=== PATIENT | female | born 1980 | race Caucasian/White ===

== ENCOUNTER 2019-08-21 15:14 | Emergency (ER) | payer MEDICAID, SELFPAY ==
[2019-08-21 15:23] VITALS: BP 147/75; PULSE 88; RESP 16; TEMP 37.2; O2SAT 100
--- NOTE | 2019-08-21 15:34 | W.ED.GENAD ---
Discharge Plan Discharge Details Chief Complaint: FacialProb Primary Care Provider: None,None ED Provider: Apurva Bowen Home Meds and New Rx's Prescriptions: No Action ibuprofen 800 MG tablet 800 mg PO BID PRN PRNRF: 0 sumatriptan succinate [Imitrex] 50 MG tablet 100 mg PO PRN PRNRF: 0 topiramate 25 MG tablet 50 mg PO DAILY RF: 0 oxycodone 5 MG tablet 10 mg PO Q4H PRN PRNRF: 0 albuterol sulfate 8.5 GM HFA aerosol inhaler 2 puff Inhalation PRN RF: 0 duloxetine [Cymbalta] 60 MG capsule,delayed release(DR/EC) 60 mg PO BID RF: 0 Pain Contract With Pcp RF: 0 tramadol 50 MG tablet 50 mg PO QID PRN PRN (Reason: Pain) Qty: 15 RF: 0 methylprednisolone 4 MG tablets,dose pack 4 mg PO DIRECTED Qty: 1 RF: 0 prednisone 20 MG tablet 40 mg PO DAILY Qty: 10 RF: 0 albuterol sulfate [ProAir HFA] 200 PUFF HFA aerosol inhaler 2 puff Inhalation Q6H PRN PRNQty: 1 RF: 0 (DME) inhalational spacing device [AeroChamber Plus Z Stat Sm Msk] 1 EACH spacer 1 ea Miscellaneous Q6H PRN Qty: 1 RF: 0 prednisone 20 MG tablet 20 mg PO DAILY Qty: 10 RF: 0 cyclobenzaprine 10 MG tablet 10 mg PO TID PRN PRNQty: 20 RF: 0 HPI General Date/Time Provider Initiated Documentation: 08/21/19 15:14. Related Data Home Medications Medication Instructions Recorded Confirmed ibuprofen 800 mg PO BID PRN PRN 06/16/13 08/31/16 oxycodone 10 mg PO Q4H PRN PRN 06/16/13 08/31/16 sumatriptan succinate [Imitrex] 100 mg PO PRN PRN 06/16/13 08/31/16 topiramate 50 mg PO DAILY 06/16/13 08/31/16 Pain Contract With Pcp 04/06/14 06/08/15 albuterol sulfate 2 puff INHALATION PRN 04/06/14 08/31/16 duloxetine [Cymbalta] 60 mg PO BID 04/06/14 08/31/16 methylprednisolone 4 mg PO DIRECTED #1 packet 06/08/15 08/31/16 tramadol 50 mg PO QID PRN PRN #15 tab 06/08/15 08/31/16 albuterol sulfate [ProAir HFA] 2 puff INHALATION Q6H PRN PRN #1 07/22/16 08/31/16 inh inhalational spacing device #1 spacer 07/22/16 08/31/16 [Aerochamber Z-Stat Plus] prednisone 40 mg PO DAILY #10 tablet 07/22/16 08/31/16 cyclobenzaprine 10 mg PO TID PRN PRN #20 tab 08/31/16 prednisone 20 mg PO DAILY #10 tab 08/31/16 Previous Rx's Medication Instructions Recorded methylprednisolone 4 mg PO DIRECTED #1 packet 06/08/15 tramadol 50 mg PO QID PRN PRN #15 tab 06/08/15 albuterol sulfate [ProAir HFA] 2 puff INHALATION Q6H PRN PRN #1 07/22/16 inh inhalational spacing device #1 spacer 07/22/16 [Aerochamber Z-Stat Plus] prednisone 40 mg PO DAILY #10 tablet 07/22/16 cyclobenzaprine 10 mg PO TID PRN PRN #20 tab 08/31/16 prednisone 20 mg PO DAILY #10 tab 08/31/16 Allergies Allergy/AdvReac Type Severity Reaction Status Date / Time gentamicin Allergy Mild Visual Unverified 08/31/16 23:08 Disturbances ibuprofen AdvReac Nausea Unverified 08/31/16 23:08 strawberries Allergy Mild Uncoded 08/31/16 23:08 roboxin AdvReac Intermediate Uncoded 08/31/16 23:08 General Stated Complaint: FacialProb SOURAV: 3 Review of Systems Review of Systems ROS Unobtainable: All systems reviewed & are unremarkable except as noted in HPI and below Constitutional Constitutional: Reports as per HPI, Denies chills and Denies fever(s) Eyes Eyes: Denies blurry vision ENT Ears, Nose, Mouth, and Throat: Denies dizziness, Denies sore throat and Denies throat swelling Cardiovascular Cardiovascular: Denies chest pain and Denies dyspnea Respiratory Respiratory: Denies cough and Denies dyspnea Gastrointestinal Gastrointestinal: Denies abdominal pain, Denies diarrhea and Denies vomiting Genitourinary Genitourinary: Denies hematuria and Denies dysuria Musculoskeletal Musculoskeletal: Denies back pain and Denies numbness Integumentary/Breasts Skin/Breast: Denies lesions and Denies rash Neurologic Neurologic: Denies dizziness, Denies focal weakness and Denies numbness Allergic/Immunologic Allergic/Immunologic: Denies throat swelling [facility] Medical History Anxiety (Chronic) Surgical History No significant past surgical history (Acute) Social History Smoking/Tobacco Use Status: Current every day Tobacco Type: cigarettes Alcohol Intake: current Alcohol Intake frequency: a few times a month Drug use: Rarely Substance use type: does not use Do you feel safe at home: Yes Do you feel safe in your relationship?: Yes Exam Const General: cooperative, healthy appearing and no acute distress HENMT Head: normal to inspection Ears: hearing grossly normal bilaterally, external ears normal and TM's normal bilaterally General nose exam: external nose normal Face images: 1. Left-sided facial edema extending around upper and lower eyelid and left facial cheek. No left periorbital erythema. There is some mid left facial erythema which is patchy. There is no induration, fluctuance. Mouth: oral mucosae normal Teeth image: 1. Above missing tooth there is moderate edema, erythema and a small fluctuant abscess. Eyes General: appearance normal, both eyes and all related structures Neck Neck: normal visual inspection Resp Effort & Inspection: normal respiratory effort and able to speak in complete sentences Cardio Rate: regular rate Skin General skin exam: no rashes or lesions noted Neuro General: alert, awake and oriented x3 Motor: muscle tone normal throughout Extrem General: normal to inspection and full ROM Psych Appearance: grossly normal Affect: normal affect Course Vital Signs Vital signs: Vital Signs Temperature 99.0 F 08/21/19 15:23 Pulse 88 08/21/19 15:23 Respiratory Rate 16 08/21/19 15:23 Blood Pressure 147/75 H 08/21/19 15:23 Pulse Oximetry 100 08/21/19 15:23 Temperature 99.0 F 08/21/19 15:23 Temperature Source Skin 08/21/19 15:23 Pulse 88 09/26/19 15:23 Respiratory Rate 16 08/21/19 15:23 Respiratory Effort Non-Labored 08/21/19 15:26 Blood Pressure 147/75 H 08/21/19 15:23 Blood Pressure Position Sitting 08/21/19 15:23 Pulse Oximetry 100 08/21/19 15:23 Oxygen Delivery Method Room Air 08/21/19 15:23 Oxygen Flow Rate 0 08/21/19 15:23
[2019-08-21] MEDS: Benzocaine 20% Gel 30 GM JAR MM (16:05)
--- NOTE | 2019-08-21 16:18 | ED.GENADUL_ITS ---
Discharge Plan Disposition Patient Disposition: HOME Condition: Improving Discharge Details Chief Complaint: FacialProb Clinical Impression: Abscess, dental Primary Care Provider: None,None ED Provider: Meghana Giordano Home Meds and New Rx's Prescriptions: New tramadol 50 mg tablet 50 mg PO Q4H PRN (Reason: pain) Qty: 9 RF: 0 penicillin V potassium 500 mg tablet 500 mg PO QID Qty: 28 RF: 0 Continued ibuprofen 800 MG tablet 800 mg PO BID PRN PRNRF: 0 sumatriptan succinate [Imitrex] 50 MG tablet 100 mg PO PRN PRNRF: 0 topiramate 25 MG tablet 50 mg PO DAILY RF: 0 oxycodone 5 MG tablet 10 mg PO Q4H PRN PRNRF: 0 albuterol sulfate 8.5 GM HFA aerosol inhaler 2 puff Inhalation PRN RF: 0 duloxetine [Cymbalta] 60 MG capsule,delayed release(DR/EC) 60 mg PO BID RF: 0 Pain Contract With Pcp RF: 0 tramadol 50 MG tablet 50 mg PO QID PRN PRN (Reason: Pain) Qty: 15 RF: 0 methylprednisolone 4 MG tablets,dose pack 4 mg PO DIRECTED Qty: 1 RF: 0 prednisone 20 MG tablet 40 mg PO DAILY Qty: 10 RF: 0 albuterol sulfate [ProAir HFA] 200 PUFF HFA aerosol inhaler 2 puff Inhalation Q6H PRN PRNQty: 1 RF: 0 (DME) inhalational spacing device [AeroChamber Plus Z Stat Sm Msk] 1 EACH spacer 1 ea Miscellaneous Q6H PRN Qty: 1 RF: 0 prednisone 20 MG tablet 20 mg PO DAILY Qty: 10 RF: 0 cyclobenzaprine 10 MG tablet 10 mg PO TID PRN PRNQty: 20 RF: 0 Discharge Instructions Instructions: Penicillin V (By mouth), Tramadol (By mouth), Dental Abscess (ED) Additional Instructions: Encourage hydration. Tylenol and/or Ibuprofen as needed for discomfort. Please take the penicillin as prescribed. Even if symptoms improve, please take the entire course. You may augment the Tylenol and ibuprofen with the tramadol as prescribed. Please take this only as prescribed do not drive will take this medication. If you develop fever/chills, increased swelling or other new/worsening symptoms please seek care urgently once again. Otherwise, you will need definitive care with a dentist. Attached list of local dentist. Please tomorrow to schedule appointment. Stand Alone Forms: Work Release Medical Decision Making Patient is a pleasant 39-year-old female presents today with chief complaint of left upper dental pain. She reports that she began having a toothache yesterday. She reports that she has a known fractured tooth in the left upper dentition. Does not receive routine physical. States that this morning she awoke noting left-sided facial swelling that the swelling has progressively increased throughout the course the day. She denies any fevers or chills, no constitutional symptoms. Has not noted any drainage from this area. Pain is worse with eating. On exam, she has notable swelling to the left cheek. She is afebrile and otherwise appears nontoxic. No pain along the lingual side of the tooth. Pain is localized to the area of fluctuance on the buccal surface. Patient I discussed risk/benefits as well as expected procedural steps of incision and drainage of the abscess. She voiced understanding and wished to proceed. Please see procedure note. Patient tolerated this well and a large amount of purulent discharge was expelled. Patient tolerated procedure well. We discussed care of the infection. Encourage hydration. Tylenol and/or ibuprofen as needed for discomfort. Is this is not been successful in alleviating her discomfort, will augment with tramadol. She has been on this historically. Patient is no longer taking the medications that may have caused a adverse reaction. Patient will be placed on penicillin. She is instructed to take the full course. She will contact dentist tomorrow to schedule follow-up appointment. She was given strict return precautions. All other questions and concerns were addressed and she is in agreement this plan. Patient reports that she does not have pain is able to put up her medications. We will send off with 3 tablets of penicillin and 3 tablets. She was instructed on dosing instructions. We will send her home with information regarding medications as well. HPI General Mode of arrival: ambulatory . Date/Time Provider Initiated Documentation: 08/21/19 15:14 . Limitations to Documentation: no limitations . Information obtained by: patient and RN notes reviewed . History of Present Illness 39 year old F presents to the emergency department with the chief complaint of left upper dental pain, described as severe, Quality is described as aching, and is localized to the face and mouth. Patient reports no radiation. Patient started experiencing this day(s) (1) and it has been constant. No relieving factors improve symptom(s), Eating worsens symptoms . Patient notes no other symptoms.; denies fever/chills. Patient did receive the following treatments prior to arrival, none Related Data Home Medications Medication Instructions Recorded Confirmed ibuprofen 800 mg PO BID PRN PRN 06/16/13 08/31/16 oxycodone 10 mg PO Q4H PRN PRN 06/16/13 08/31/16 sumatriptan succinate [Imitrex] 100 mg PO PRN PRN 06/16/13 08/31/16 topiramate 50 mg PO DAILY 06/16/13 08/31/16 Pain Contract With Pcp 04/06/14 06/08/15 albuterol sulfate 2 puff INHALATION PRN 04/06/14 08/31/16 duloxetine [Cymbalta] 60 mg PO BID 04/06/14 08/31/16 methylprednisolone 4 mg PO DIRECTED #1 packet 06/08/15 08/31/16 tramadol 50 mg PO QID PRN PRN #15 tab 06/08/15 08/31/16 albuterol sulfate [ProAir HFA] 2 puff INHALATION Q6H PRN PRN #1 07/22/16 08/31/16 inh inhalational spacing device #1 spacer 07/22/16 08/31/16 [AeroChamber Plus Z Stat Sm Msk] prednisone 40 mg PO DAILY #10 tablet 07/22/16 08/31/16 cyclobenzaprine 10 mg PO TID PRN PRN #20 tab 08/31/16 prednisone 20 mg PO DAILY #10 tab 08/31/16 penicillin V potassium 500 mg PO QID #28 tab 08/21/19 tramadol 50 mg PO Q4H PRN #9 tab 08/21/19 Previous Rx's Medication Instructions Recorded methylprednisolone 4 mg PO DIRECTED #1 packet 06/08/15 tramadol 50 mg PO QID PRN PRN #15 tab 06/08/15 albuterol sulfate [ProAir HFA] 2 puff INHALATION Q6H PRN PRN #1 07/22/16 inh inhalational spacing device #1 spacer 07/22/16 [AeroChamber Plus Z Stat Sm Msk] prednisone 40 mg PO DAILY #10 tablet 07/22/16 cyclobenzaprine 10 mg PO TID PRN PRN #20 tab 08/31/16 prednisone 20 mg PO DAILY #10 tab 08/31/16 penicillin V potassium 500 mg PO QID #28 tab 08/21/19 tramadol 50 mg PO Q4H PRN #9 tab 08/21/19 Allergies Allergy/AdvReac Type Severity Reaction Status Date / Time gentamicin Allergy Mild Visual Unverified 08/31/16 23:08 Disturbances ibuprofen AdvReac Nausea Unverified 08/31/16 23:08 strawberries Allergy Mild Uncoded 08/31/16 23:08 roboxin AdvReac Intermediate Uncoded 08/31/16 23:08 General Stated Complaint: FacialProb SOURAV: 3 Review of Systems Constitutional Constitutional: Reports as per HPI, Denies chills, Denies fatigue, Denies fever(s), Denies headache(s) and Denies poor appetite Eyes Eyes: Denies change in vision and Denies irritation ENT Ears, Nose, Mouth, and Throat: Reports as per HPI, Reports dental pain, Denies dysphagia, Denies dizziness, Denies dry mouth, Denies ear discharge, Denies otalgia, Reports facial pain, Denies headache(s), Denies hoarseness, Denies lip swelling, Denies nasal congestion, Denies odynophagia and Denies sore throat Cardiovascular Cardiovascular: Reports as per HPI and Denies chest pain Respiratory Respiratory: Reports as per HPI and Denies cough Gastrointestinal Gastrointestinal: Reports as per HPI, Denies dysphagia, Denies nausea, Denies odynophagia and Denies vomiting Integumentary/Breasts Skin/Breast: Reports as per HPI, Denies erythema, Denies rash and Denies skin pain Neurologic Neurologic: Reports as per HPI, Denies dizziness and Denies headache(s) Endocrine Endocrine: Denies fatigue Allergic/Immunologic Allergic/Immunologic: Denies lip swelling PFSH Medical History Anxiety (Chronic) Surgical History No significant past surgical history (Acute) Social History Smoking/Tobacco Use Status: Current every day Tobacco Type: cigarettes Alcohol Intake: current Alcohol Intake frequency: a few times a month Drug use: Rarely Substance use type: does not use Do you feel safe at home: Yes Do you feel safe in your relationship?: Yes Exam Const General: cooperative, healthy appearing, comfortable, no acute distress, well developed and well groomed Nutritional Appearance: average body habitus and well nourished Orientation: alert and awake [facility] Head: normal to inspection, normocephalic and atraumatic Ears: hearing grossly normal bilaterally, external ears normal and TM's normal bilaterally General nose exam: external nose normal and nares normal Face and sinus: no abrasions, no crepitus, no ecchymosis, no erythema, no fluctuance, no lacerations, no maxillary instability and tenderness (soft tissue swelling and tenderness to left cheek) Face images: 1. area of swelling Teeth and gingiva: caries and poor dentition Teeth image: 1. area of abscess near fractured #13 tooth Throat: posterior oropharynx normal, tonsils normal and uvula midline Eyes General: appearance normal, both eyes and all related structures Alignment and Position: alignment normal and position normal Periorbital: periorbital findings normal Eyelids: eyelids normal Conjunctivae: conjunctivae normal Sclera: sclerae normal Cornea: corneas normal Pupils: PERRL and normal by confrontation EOM: EOM intact bilaterally Neck Neck: normal visual inspection, full ROM, no lymphadenopathy, supple and no anterior neck swelling Resp Effort & Inspection: normal respiratory effort, able to speak in complete sentences and no respiratory distress Auscultation: clear to auscultation bilaterally, no rales, no rhonchi and no whe ezes Cardio Rate: regular rate Rhythm: regular rhythm Heart Sounds: S1 normal and S2 normal Skin General skin exam: no rashes or lesions noted Trauma: no lacerations or abrasions Neuro General: alert and awake Cognition: normal cognition Speech: speech normal Gait: normal gait Psych Appearance: grossly normal and well kempt Mental Status: mental status grossly normal Speech and Movement: speech and movement normal Course Vital Signs Vital signs: Vital Signs Temperature 37.2 C 08/21/19 15:23 Pulse 88 08/21/19 15:23 Respiratory Rate 16 08/21/19 15:23 Blood Pressure 147/75 H 08/21/19 15:23 Pulse Oximetry 100 08/21/19 15:23 Temperature 37.2 C 08/21/19 15:23 Temperature Source Skin 08/21/19 15:23 Pulse 88 08/21/19 15:23 Respiratory Rate 16 08/21/19 15:23 Respiratory Effort Non-Labored 08/21/19 15:26 Blood Pressure 147/75 H 08/21/19 15:23 Blood Pressure Position Sitting 08/21/19 15:23 Pulse Oximetry 100 08/21/19 15:23 Oxygen Delivery Method Room Air 08/21/19 15:23 Oxygen Flow Rate 0 08/21/19 15:23 Procedures Abscess I/D Site: Face (dental) Side (if applicable): Left Local Anesthetic: Other Anesthetic (hurricaine gel) Technique: Incised with #11 Blade Amount of fluid expressed (mL): 5 Irrigation: Yes Packing used?: None Complications: Other (none)
[2019-08-21] MEDS: Penicillin V POTASSIUM 500 MG TAB PO (16:47)
[2019-08-21] MEDS: traMADol 50 MG TAB 150 MG PO (16:50)
[2019-08-21 16:51] VITALS: BP 147/75; PULSE 88; RESP 16; TEMP 37.2; O2SAT 100
[2019-08-21] MEDS: Penicillin V POTASSIUM 500 MG TAB 1500 MG PO (16:51)
== END 2019-08-21 16:55 | disposition home or self-care (01) ==
PROVIDERS: Emergency Provider Physician Assistant
DX: K04.7 Periapical abscess without sinus (principal); F17.210 Nicotine dependence, cigarettes, uncomplicated
CPT/HCPCS: 99283

== ENCOUNTER 2019-11-26 16:39 | Emergency (ER) | payer MEDICAID, SELFPAY ==
[2019-11-26 16:50] VITALS: BP 138/68; PULSE 78; RESP 18; TEMP 36.8; O2SAT 100
--- NOTE | 2019-11-26 17:13 | W.ED.GENAD ---
Discharge Plan Disposition Patient Disposition: HOME Condition: Good Discharge Details Chief Complaint: Headache Clinical Impression: Migraine Primary Care Provider: Freida Cristina ED Provider: Apurva Bowen Home Meds and New Rx's Prescriptions: Continued ibuprofen 800 MG tablet 800 mg PO BID PRN PRNRF: 0 sumatriptan succinate [Imitrex] 50 MG tablet 100 mg PO PRN PRNRF: 0 topiramate 25 MG tablet 50 mg PO DAILY RF: 0 oxycodone 5 MG tablet 10 mg PO Q4H PRN PRNRF: 0 albuterol sulfate 8.5 GM HFA aerosol inhaler 2 puff Inhalation PRN RF: 0 duloxetine [Cymbalta] 60 MG capsule,delayed release(DR/EC) 60 mg PO BID RF: 0 Pain Contract With Pcp RF: 0 tramadol 50 MG tablet 50 mg PO QID PRN PRN (Reason: Pain) Qty: 15 RF: 0 methylprednisolone 4 MG tablets,dose pack 4 mg PO DIRECTED Qty: 1 RF: 0 prednisone 20 MG tablet 40 mg PO DAILY Qty: 10 RF: 0 albuterol sulfate [ProAir HFA] 200 PUFF HFA aerosol inhaler 2 puff Inhalation Q6H PRN PRNQty: 1 RF: 0 (DME) inhalational spacing device [AeroChamber Plus Z Stat Sm Msk] 1 EACH spacer 1 ea Miscellaneous Q6H PRN Qty: 1 RF: 0 prednisone 20 MG tablet 20 mg PO DAILY Qty: 10 RF: 0 cyclobenzaprine 10 MG tablet 10 mg PO TID PRN PRNQty: 20 RF: 0 tramadol 50 mg tablet 50 mg PO Q4H PRN (Reason: pain) Qty: 9 RF: 0 penicillin V potassium 500 mg tablet 500 mg PO QID Qty: 28 RF: 0 Discharge Instructions Instructions: Migraine Headache (ED) Additional Instructions: Alternate tylenol and motrin as needed and directed for pain. Drink plenty of fluids and get plenty of rest. Follow-up with your primary care doctor in 1 week. You will receive a call from care management regarding a follow-up appointment with neurology. Return to the emergency department with any worsening or new concerning symptoms. Stand Alone Forms: Work Release Referrals: Marisela Martin MD [ [facility] STAFF PHYSICIAN] - Discharge Data Discharge Physician: Apurva Bowen Medical Decision Making 39-year-old female with a history of migraines presents for migraine headache for the past 2 days. She states the headache is constant, throbbing and located behind her left eye and forehead. States the pains feels consistent with her usual migraines. She states a few years ago she had been getting 3-4 migraines weekly, but after getting ear piercings for migraines, her headaches decreased to 2 times monthly. She states over the last few months, her headaches have been increasing in frequency. She states she had seen neurology at [facility] approximately 10 years ago but none recently. She admits to nausea but denies vomiting. She denies blurry vision, fever, neck pain, dizziness or extremity weakness or numbness. Vitals within normal limits. Patient appears nontoxic. She does appear uncomfortable, and demonstrates photophobia with towel over her eyes due to pain worse with light. She has no focal deficits. Do not see an indication for imaging. Will place an IV, bolus IV fluids, Decadron, Toradol, Compazine and Benadryl and reassess. Allergy list noted allergy to ibuprofen, but she states this only causes nausea and she has taken it before without any anaphylactic reaction. Patient reassessed and symptoms completely resolved and she is requesting to go home. Patient placed on care management list to arrange for a follow-up appointment with neurology for further evaluation of her migraines. Compazine given for home. Usual and customary return precautions given prior to discharge. Medical Records Medical records reviewed: Yes I reviewed the patient's medical records. HPI General Mode of arrival: ambulatory. Date/Time Provider Initiated Documentation: 11/26/19 17:05. Limitations to Documentation: no limitations. Information obtained by: patient. History of Present Illness 39 year old F presents to the emergency department with the chief complaint of migraine headache, with intensity rated at 10. Quality is described as aching and other (throbbing), and is localized to the head and face. Patient reports no radiation. Patient started experiencing this day(s) (2) and it has been constant. No relieving factors improve symptom(s), Other factors that worsen symptoms (light, noise) . Patient notes denies cough, diaphoresis, fever/chills, loss of appetite, malaise, rash, seizure, shortness of breath, syncope and weakness. Patient did receive the following treatments prior to arrival, other (alternating tylenol and motrin ) Related Data Home Medications Medication Instructions Recorded Confirmed ibuprofen 800 mg PO BID PRN PRN 06/16/13 08/31/16 oxycodone 10 mg PO Q4H PRN PRN 06/16/13 08/31/16 sumatriptan succinate [Imitrex] 100 mg PO PRN PRN 06/16/13 08/31/16 topiramate 50 mg PO DAILY 06/16/13 08/31/16 Pain Contract With Pcp 04/06/14 06/08/15 albuterol sulfate 2 puff INHALATION PRN 04/06/14 08/31/16 duloxetine [Cymbalta] 60 mg PO BID 04/06/14 08/31/16 methylprednisolone 4 mg PO DIRECTED #1 packet 06/08/15 08/31/16 tramadol 50 mg PO QID PRN PRN #15 tab 06/08/15 08/31/16 albuterol sulfate [ProAir HFA] 2 puff INHALATION Q6H PRN PRN #1 07/22/16 08/31/16 inh inhalational spacing device #1 spacer 07/22/16 08/31/16 [AeroChamber Plus Z Stat Sm Msk] prednisone 40 mg PO DAILY #10 tablet 07/22/16 08/31/16 cyclobenzaprine 10 mg PO TID PRN PRN #20 tab 08/31/16 prednisone 20 mg PO DAILY #10 tab 08/31/16 penicillin V potassium 500 mg PO QID #28 tab 08/21/19 tramadol 50 mg PO Q4H PRN #9 tab 08/21/19 Previous Rx's Medication Instructions Recorded methylprednisolone 4 mg PO DIRECTED #1 packet 06/08/15 tramadol 50 mg PO QID PRN PRN #15 tab 06/08/15 albuterol sulfate [ProAir HFA] 2 puff INHALATION Q6H PRN PRN #1 07/22/16 inh inhalational spacing device #1 spacer 07/22/16 [AeroChamber Plus Z Stat Sm Msk] prednisone 40 mg PO DAILY #10 tablet 07/22/16 cyclobenzaprine 10 mg PO TID PRN PRN #20 tab 08/31/16 prednisone 20 mg PO DAILY #10 tab 08/31/16 penicillin V potassium 500 mg PO QID #28 tab 08/21/19 tramadol 50 mg PO Q4H PRN #9 tab 08/21/19 Allergies Allergy/AdvReac Type Severity Reaction Status Date / Time gentamicin Allergy Mild Visual Unverified 11/26/19 16:53 Disturbances ibuprofen AdvReac Nausea Unverified 11/26/19 16:53 strawberries Allergy Mild Uncoded 11/26/19 16:53 roboxin AdvReac Intermediate Uncoded 11/26/19 16:53 General Stated Complaint: Headache SOURAV: 3 Review of Systems All systems reviewed & are unremarkable except as noted in HPI and below Constitutional Constitutional: Reports as per HPI, Denies chills, Denies fever(s) and Reports headache(s) Eyes Eyes: Denies blurry vision ENT Ears, Nose, Mouth, and Throat: Denies dizziness, Reports headache(s), Denies sore throat and Denies throat swelling Cardiovascular Cardiovascular: Denies chest pain and Denies dyspnea Respiratory Respiratory: Denies cough and Denies dyspnea Gastrointestinal Gastrointestinal: Denies abdominal pain, Denies diarrhea, Reports nausea and Denies vomiting Genitourinary Genitourinary: Denies hematuria and Denies dysuria Musculoskeletal Musculoskeletal: Denies back pain and Denies numbness Integumentary/Breasts Skin/Breast: Denies lesions and Denies rash Neurologic Neurologic: Denies dizziness, Reports headache(s), Denies focal weakness and Denies numbness Allergic/Immunologic Allergic/Immunologic: Denies throat swelling [facility] Medical History Anxiety (Chronic) Irritable bowel syndrome (Chronic) Migraine (Chronic) Surgical History (Updated 11/26/19 @ 20:38 by Apurva Bowen DO) History of bilateral tubal ligation (Acute) History of hernia repair (Chronic) History of lumbar discectomy (Acute) Social History Smoking/Tobacco Use Status: Former Tobacco Use Alcohol Intake: current Alcohol Intake frequency: a few times a month Drug use: Rarely Substance use type: does not use Do you feel safe at home: Yes Do you feel safe in your relationship?: Yes Exam Const General: cooperative and healthy appearing Orientation: alert and awake HENMT Head: normal to inspection Ears: hearing grossly normal bilaterally and external ears normal General nose exam: external nose normal Face and sinus: normal facial exam Mouth: oral mucosae normal Teeth and gingiva: dentition normal Throat: posterior oropharynx normal Eyes General: appearance normal, both eyes and all related structures Eyelids: eyelids normal Pupils: PERRL EOM: EOM intact bilaterally Neck Neck: normal visual inspection Lymphatic: no lymphadenopathy noted Chest Chest: normal inspection of the chest Resp Effort & Inspection: normal respiratory effort and able to speak in complete sentences Auscultation: clear to auscultation bilaterally Cardio Rate: regular rate Rhythm: regular rhythm GI Inspection: normal to inspection Palpation: soft, not firm, no guarding, no hepatosplenomegaly, no masses and nontender Auscultation: normal bowel sounds Skin General skin exam: no rashes or lesions noted Neuro General: alert and awake Cranial Nerves: CN's II-XI intact bilaterally Cognition: normal cognition Speech: speech normal Gait: normal gait Motor: muscle tone normal throughout and strength 5/5 throughout Sensory Exam: no sensory deficits noted Extrem General: normal to inspection, full ROM and normal capillary refill Psych Appearance: grossly normal Mental Status: mental status grossly normal Speech and Movement: speech and movement normal Affect: normal affect Thought Process: normal Course Vital Signs Vital signs: Vital Signs Temperature 98.2 F 11/26/19 16:50 Pulse 78 11/26/19 16:50 Respiratory Rate 18 11/26/19 16:50 Blood Pressure 138/68 11/26/19 16:50 Pulse Oximetry 100 11/26/19 16:50 Temperature 98.2 F 11/26/19 16:50 Temperature Source Skin 11/26/19 16:50 Pulse 78 11/26/19 16:50 Respiratory Rate 18 11/26/19 16:50 Respiratory Effort Non-Labored 11/26/19 16:52 Blood Pressure 138/68 11/26/19 16:50 Blood Pressure Position Supine 11/26/19 16:50 Pulse Oximetry 100 11/26/19 16:50 Oxygen Delivery Method Room Air 11/26/19 16:50 Oxygen Flow Rate 0 11/26/19 16:50 Pain Level 10 11/26/19 16:50
[2019-11-26] MEDS: Normal Saline 1,000 ML 1000 ML IV (17:49)
[2019-11-26] MEDS: diphenhydrAMINE 50 MG/ML VIAL 25 MG IVP (17:49)
[2019-11-26] MEDS: Ketorolac 30 MG/ML VIAL IVP (17:51)
[2019-11-26] MEDS: Dexamethasone 10 MG/ML VIAL IVP (17:51)
[2019-11-26] MEDS: Prochlorperazine 10 MG/2 ML VIAL IVP (17:53)
[2019-11-26 18:57] VITALS: BP 119/70; PULSE 68; RESP 16; TEMP 36.8; O2SAT 100
[2019-11-26] MEDS: Prochlorperazine 10 MG TAB 30 MG PO (19:30)
== END 2019-11-26 19:35 | disposition home or self-care (01) ==
PROVIDERS: Emergency Provider Physician Assistant; PCP Physician Assistant Medical
DX: G43.909 Migraine, unspecified, not intractable, without status migrainosus (principal); R11.0 Nausea
CPT/HCPCS: 96361; 96374; 96375; 99284; J0780; J1100; J1200; J1885

== ENCOUNTER 2020-08-17 18:13 | Emergency (ER) | payer MEDICAID, SELFPAY ==
--- NOTE | 2020-08-17 18:21 | ED.GENADUL_ITS ---
Discharge Plan Disposition Patient Disposition: HOME Condition: Improving Discharge Details Clinical Impression: Colitis, Nausea Primary Care Provider: Freida Cristina ED Provider: Apurva Bowen Home Meds and New Rx's Prescriptions: New ondansetron 4 mg tablet,disintegrating 4 mg PO TID PRN (Reason: nausea and vomiting) Qty: 6 RF: 0 Continued prochlorperazine maleate 5 mg tablet 5 mg PO TID PRN (Reason: headaches) Qty: 30 RF: 5 escitalopram oxalate 10 mg tablet 30 mg PO DAILY RF: 0 Mirena 20 mcg/24 hours (5 yrs) 52 mg intrauterine device 1 device IY ONCE RF: 0 Pain Contract With Pcp RF: 0 albuterol sulfate [ProAir HFA] 200 PUFF HFA aerosol inhaler 2 puff Inhalation Q6H PRN PRNQty: 1 RF: 0 Discharge Instructions Instructions: Acute Nausea and Vomiting (ED), Abdominal Pain (ED), Colitis (ED) Additional Instructions: Drink plenty of fluids and get plenty of rest. Take Tylenol as needed directed for pain. Take Zofran as needed and directed for nausea and vomiting. Follow-up with your primary care doctor in 1 week. Return to the emergency department with any worsening or new concerning symptoms. Stand Alone Forms: Work Release Discharge Data Discharge Physician: Apurva Bowen Medical Decision Making 1824 -- 40-year-old female presents with fatigue since yesterday and nausea and fatigue with sudden onset of right groin pain today. BP mildly hypertensive. Patient appears nontoxic but slightly uncomfortable. She has right lower quadrant greater than left lower quadrant tenderness in addition to mild tenderness of her right groin. She has no pain with range of motion at her right hip without evidence of cellulitis, trauma or lymphadenopathy at right groin site. Differential diagnosis includes acute appendicitis, ovarian cyst, muscle strain, diverticulitis, UTI. Will place an IV, bolus of fluids, screening labs, urinalysis, urine and CT abdomen pelvis and give a dose of Toradol and Zofran and reassess. 1934 --labs and imaging reviewed. Normal white blood cell count, electrolytes and lipase. Urinalysis negative. Urine test negative. CT abd/pelvis notes: 1. Findings suspicious for gastroenteritis and a mild element of proximal colitis. No evidence of bowel obstruction, perforation, or abscess. No evidence of appendicitis. 2. 3 mm nonobstructive left renal stone. No hydronephrosis. 3. Mildly enlarged mesenteric nodes, nonspecific but possibly reactive in nature. Patient reassessed and she feels much better and feels good to go home. Discuss ed with patient that her symptoms could be likely viral in nature. We will send home with Denis. She is advised on the importance of increasing fluids, rest. She requests work note. Advised to follow up with the primary care doctor for re-evaluation. Usual and customary return precautions given prior to discharge. Medical Records Medical records reviewed: Yes I reviewed the patient's medical records. Imaging Data Radiologic Study: Radiologist's impression: CT Abdomen And Pelvis With Contrast Exam date and time: 08/17/2020 6:35 PM Age: 40 years old Clinical indication: Abdominal pain; Localized; Right lower quadrant (rlq); Prior surgery; Surgery date: 6+ months; Surgery type: Tubal ligation and hernia repair; Patient HX: Sudden onset of severe rlq pain and tenderness going across lower abdoman. R/O appendicitis , ovarian cyst TECHNIQUE: Imaging protocol: Computed tomography of the abdomen and pelvis with intravenous contrast. Radiation optimization: All CT scans at this facility use at least one of these dose optimization techniques: automated exposure control; mA and/or kV adjustment per patient size (includes targeted exams where dose is matched to clinical indication); or iterative reconstruction. Contrast material: OMNIPAQUE 350; Contrast volume: 100 ml; Contrast route: INTRAVENOUS (IV); COMPARISON: No relevant prior studies available. FINDINGS: Lungs: Patchy scarring or atelectasis in the lung bases. Heart: Heart size normal. Mediastinal space: The visualized distal esophagus is normal. Liver: Normal size and contour. Well-circumscribed low-density lesion in the left hepatic lobe measuring 3 mm in diameter, demonstrating benign CT features most consistent with hepatic cyst. No further imaging characterization/followup is required based on current consensus criteria. No intrahepatic biliary ductal dilatation. Gallbladder and bile ducts: Normal. No calcified stones. No ductal dilation. Pancreas: Normal. No inflammatory changes or ductal dilation. Spleen: Normal. No splenomegaly. Adrenals: Normal. No adrenal mass. Kidneys and ureters: No acute abnormalities. No hydronephrosis or hydroureter. 3 mm nonobstructive stone in the lower pole of the left kidney. No ureteral stones. Stomach and bowel: The stomach is grossly normal. Question mildly excessive fluid content in the mid and distal small bowel segments with equivocal slight increase in bowel wall enhancement. This is suspicious for mild gastroenteritis. No dasha bowel dilatation or transition point. No evidence of bowel obstruction, perforation, or abscess. Question mild colonic wall thickening in the mid and proximal colonic segments suspicious for mild colitis. No evidence of perforation or abscess. Appendix: The appendix measures 6-7 mm maximum diameter with no associated wall thickening or surrounding inflammatory stranding. No evidence to suggest acute appendicitis. Intraperitoneal space: No free fluid or air. Vasculature: No acute process. No abdominal aortic aneurysm. Lymph nodes: There are few mildly enlarged right lower quadrant ileocolic nodes measuring up to 10 mm short axis. These are nonspecific in nature and may represent reactive bear enlargement from colitis. Bladder: The urinary bladder is largely contracted without gross abnormality. Reproductive: IUD in the uterus, grossly well-positioned. Bones/joints: No acute osseous abnormalities. Mild chronic appearing superior endplate compression of T11, with no acute features. Soft tissues: Small fatty umbilical hernia . No evidence of associated bowel herniation or bowel obstruction. IMPRESSION: 1. Findings suspicious for gastroenteritis and a mild element of proximal colitis. No evidence of bowel obstruction, perforation, or abscess. No evidence of appendicitis. 2. 3 mm nonobstructive left renal stone. No hydronephrosis. 3. Mildly enlarged mesenteric nodes, nonspecific but possibly reactive in nature. 4. Additional incidental findings detailed above. Lab Data Lab results reviewed: Yes I reviewed the patient's lab results. Labs: Laboratory Tests Range/Units 08/17/20 08/17/20 08/17/20 18:40 18:50 18:55 WBC (4.4-10.8) 10^3/uL 9.18 RBC (3.93-5.22) 10^6/uL 4.58 Hgb (11.2-15.7) g/dL 13.0 Hct (36.0-46.0) % 40.8 MCV (80-95) fL 89.1 MCH (27.0-33.0) pg 28.4 MCHC (32.0-36.0) % 31.9 L RDW (11.7-14.6) % 12.4 Plt Count (130-400) 10^3/uL 250 MPV (8.0-11.0) fL 10.8 Immature Gran % 0.3 Neutrophils % 53.9 Lymphocytes % 34.3 Monocytes % 8.1 Eosinophils % 2.6 Basophils % 0.8 Nucleated RBC % % 0 Absolute Neutrophils (1.2-6.7) 10^3/uL 4.95 Absolute Lymphocytes (1.2-3.4) 10^3/uL 3.15 Absolute Monocytes (0.1-0.8) 10^3/uL 0.74 Absolute Eosinophils (0.0-0.7) 10^3/uL 0.24 Absolute Basophils (0.0-0.2) 10^3/uL 0.07 Sodium (136-145) mmol/L 139 Potassium (3.5-5.1) mmol/L 3.8 Chloride (98-107) mmol/L 105 Carbon Dioxide (21.0-32.0) mmol/L 27.2 Anion Gap (3-11) mmol/L 6.8 BUN (7-18) mg/dL 15 Creatinine (0.55-1.02) mg/dL 0.93 Estimated GFR/1.73 m2 (mL/min/1.73m2) >= 60.00 Glucose (74-106) mg/dL 95 Calcium (8.5-10.1) mg/dL 8.7 Total Bilirubin (0.2-1.0) mg/dL 0.3 AST (15-37) U/L 9 L ALT (14-59) U/L 10 L Alkaline Phosphatase (46-116) U/L 46 Total Protein (6.4-8.2) g/dL 7.2 Albumin (3.4-5.0) g/dL 3.8 Lipase (73-393) U/L 86 Urine Color (Yellow) Yellow Urine Clarity (Clear) Clear Urine pH (5-8) 7.0 Ur Specific [place] (1.005-1.025) 1.025 Urine Protein (Negative) mg/dL Negative Urine Ketones (Negative) mg/dL Negative Urine Blood (Negative) Negative Urine Nitrite (Negative) Negative Urine Bilirubin (Negative) Negative Urine Urobilinogen (Up TO 0.2) EU/dL 1.0 H Ur Leukocyte Esterase (Negative) Negative Urine Glucose (Negative) mg/dL Negative HPI General Mode of arrival: ambulatory . Date/Time Provider Initiated Documentation: 08/17/20 18:16 . Limitations to Documentation: no limitations . Information obtained by: patient . HPI Narrative: Patient is a 40-year-old female who presents with fatigue since yesterday, nausea today and sudden onset of right groin pain while sitting at home. She states the groin pain is constant and sharp and worse with movement and walking. She denies any known injury. She states she has been having normal bowel movements. Denies any fever, chest pain, shortness of breath, no abdominal pain, urinary symptoms, diarrhea, leg pain or weakness, bowel or bladder incontinence, saddle anesthesia, recent travel or recent known sick contacts. Related Data Home Medications Medication Instructions Recorded Confirmed Pain Contract With Pcp 04/06/14 12/09/19 albuterol sulfate [ProAir HFA] 2 puff INHALATION Q6H PRN PRN #1 07/22/16 12/09/19 inh levonorgestrel 20 mcg/24 hours (5 1 device IY ONCE 12/09/19 12/09/19 yrs) 52 mg intrauterine device escitalopram oxalate 10 mg tablet 30 mg PO DAILY tab 02/26/20 02/26/20 prochlorperazine maleate 5 mg 5 mg PO TID PRN #30 tab 02/26/20 02/26/20 tablet ondansetron 4 mg PO TID PRN #6 tab 08/17/20 Previous Rx's Medication Instructions Recorded albuterol sulfate [ProAir HFA] 2 puff INHALATION Q6H PRN PRN #1 07/22/16 inh prochlorperazine maleate 5 mg 5 mg PO TID PRN #30 tab 02/26/20 tablet ondansetron 4 mg PO TID PRN #6 tab 08/17/20 Allergies Allergy/AdvReac Type Severity Reaction Status Date / Time gentamicin Allergy Mild Visual Unverified 08/17/20 18:24 Disturbances ibuprofen AdvReac Nausea Unverified 08/17/20 18:24 methocarbamol [From Robaxin] AdvReac Unverified 08/17/20 18:32 strawberries Allergy Mild Uncoded 08/17/20 18:24 General SOURAV: 3 Review of Systems All systems reviewed & are unremarkable except as noted in HPI and below Constitutional Constitutional: Reports as per HPI, Denies chills and Denies fever(s) Eyes Eyes: Denies blurry vision ENT Ears, Nose, Mouth, and Throat: Denies dizziness, Denies sore throat and Denies throat swelling Cardiovascular Cardiovascular: Denies chest pain and Denies dyspnea Respiratory Respiratory: Denies cough and Denies dyspnea Gastrointestinal Gastrointestinal: Reports abdominal pain, Denies diarrhea, Reports nausea and Denies vomiting Genitourinary Genitourinary: Denies hematuria and Denies dysuria Musculoskeletal Musculoskeletal: Denies back pain and Denies numbness Integumentary/Breasts Skin/Breast: Denies lesions and Denies rash Neurologic Neurologic: Denies dizziness, Denies localized weakness and Denies numbness Allergic/Immunologic Allergic/Immunologic: Denies throat swelling [facility] Medical History (Updated 08/17/20 @ 19:45 by Apurva Bowen DO) Anxiety Irritable bowel syndrome Migraine headache without aura Surgical History History of bilateral tubal ligation History of hernia repair History of lumbar discectomy Social History Smoking/Tobacco Use Status: Current-Occasional Tobacco Type: cigarettes Alcohol Intake: current Alcohol Intake frequency: a few times a month Drug use: Rarely Substance use type: does not use Housing: other Details: trailer Number of Children: 3 What is your relationship status?: Panel score (0-1 are the most socially isolated patients): 0 Seatbelt use: sometimes Do you feel safe at home: Yes Do you feel safe in your relationship?: Yes Exam Const General: cooperative, healthy appearing and no acute distress HENMT Head: normal to inspection Face and sinus: normal facial exam Eyes General: appearance normal, both eyes and all related structures EOM: EOM intact bilaterally Neck Neck: normal visual inspection and No submandibular swelling Lymphatic: no lymphadenopathy noted Chest Chest: normal inspection of the chest and no tenderness Resp Effort & Inspection: normal respiratory effort and able to speak in complete sentences Auscultation: clear to auscultation bilaterally Cardio Rate: regular rate Rhythm: regular rhythm GI Inspection: normal to inspection Palpation: soft, not firm, not rigid and tender in the LLQ, in the RLQ and suprapubicly Auscultation: normal bowel sounds and hypoactive bowel sounds Skin General skin exam: no rashes or lesions noted Neuro General: patient alert, patient awake and patient oriented x3 Cognition: normal cognition Speech: speech normal Motor: muscle tone normal throughout and strength 5/5 throughout Sensory Exam: no sensory deficits noted DTR's: Rt Patellar: 1+, Lt Patellar: 1+, Rt Ankle: 1+ and Lt Ankle: 1+ Plantar Reflexes: Equivocal: bilateral (Negative Babinski bilaterally) Extrem General: normal to inspection, full ROM, capillary refill normal, no calf tenderness bilaterally and no edema Upper/lower leg/hip images: 1. Tenderness to palpation of R groin. No lymphadenopathy, erythema, edema, ecchymoses, crepitus, step-off. There is no pain with range of motion at right hip. Other: Bilateral DP/PT pulses intact. Psych Appearance: grossly normal Mental Status: mental status grossly normal Speech and Movement: speech and movement normal Affect: normal affect
[2020-08-17 18:22] VITALS: BP 154/72; PULSE 94; RESP 14; TEMP 36.7; O2SAT 98
--- NOTE | 2020-08-17 18:30 | DI.CT_ITS ---
EXAM: CT ABDOMEN PELVIS W CLINICAL HISTORY: RLQ/R groin pain TECHNIQUE: Imaging Protocol: Axial computed tomography images with coronal and sagittal reformatted images were created and reviewed CONTRAST MATERIAL: Intravenous: Omnipaque 350 Contrast volume:100 mL Oral: No COMPARISON: No exams were available for comparison FINDINGS: ABDOMEN: Lung Bases: Scarring or atelectasis in the lung bases. Liver: Normal density. No measurable mass. Portal, Superior Mesenteric, and Splenic Veins: Unremarkable. Gallbladder and Biliary Tract: No radiodense calculus or dilation. Pancreas: Normal density, no abnormal calcifications or inflammatory process. Spleen: Normal. Adrenals: No masses seen. Kidneys: Normal size, contour and axis. 3 mm nonobstructing stone in the lower pole of the left kidne y. No masses seen. Abdominal Aorta: Abdominal portion non-dilated. Bowel: No evidence of bowel obstruction. Mild bowel wall thickening in loops of small bowel in the c entral abdomen may represent enteritis. Appendix is unremarkable. Peritoneal Cavity: No ascites, collection or mesenteric inflammatory response. Lymph Nodes: Within normal limits. Bones: Unremarkable. Soft Tissues: Unremarkable. PELVIS: Bladder: Symmetric distention, no gross wall thickening. Reproductive Organs: There is an IUD in position. Lymph Nodes: Within normal limits. Bones: Old mild superior compression deformity in the T11 vertebral body. Mild degenerative changes in the lumbar spine. IMPRESSION: 1. Findings suspicious for mild infectious or inflammatory enteritis. 2. Normal appendix. 3. 3 mm nonobstructing left renal stone. RADIATION DOSE DELIVERED: 1,028.48mGy.cm Total DLP DATA REPOSITORY: All CT scans at this facility are submitted to the National Radiology Data Registry (NRDR) Dose Index Registry (DIR) with the [employer] (ACR). RADIATION OPTIMIZATION: All CT scans at this facility use at least one of these dose optimization te chniques: automated exposure control; mA and/or kV adjustment per patient size (includes targeted exa ms where dose is matched to clinical indication); or iterative reconstruction.
[2020-08-17] MEDS: Ketorolac 30 MG/ML VIAL IVP (18:54)
[2020-08-17] MEDS: Ondansetron 4 MG/2 ML VIAL IVP (18:55)
[2020-08-17] MEDS: Normal Saline 1,000 ML 1000 ML IV (18:55)
[2020-08-17 18:57] LABS: Abs Immature Grans 0.03 10^3/uL (0.0-0.06); Absolute Basophil Count 0.07 10^3/uL (0.0-0.2); Absolute Eosinophil Count 0.24 10^3/uL (0.0-0.7); Absolute Lymphocyte Count 3.15 10^3/uL (1.2-3.4); Absolute Monocyte Count 0.74 10^3/uL (0.1-0.8); Absolute Neutrophil Count 4.95 10^3/uL (1.2-6.7); Basophils % 0.8; Eosinophils % 2.6; HCT 40.8 % (36.0-46.0); Immature Grans % 0.3; Lymphocytes % 34.3; MCH 28.4 pg (27.0-33.0); MCHC 31.9 % (32.0-36.0); MCV 89.1 fL (80-95); MPV 10.8 fL (8.0-11.0); Monocytes % 8.1; Neutrophils % 53.9; Nucleated RBC 0 %; Platelet Count 250 10^3/uL (130-400); RBC 4.58 10^6/uL (3.93-5.22); RDW 12.4 % (11.7-14.6); RDW-SD 40.5 fL; WBC 9.18 10^3/uL (4.4-10.8)
[2020-08-17 19:05] LABS: Bilirubin Negative (Negative); Blood Negative (Negative); Clarity Clear (Clear); Glucose Negative (Negative); Ketones Negative (Negative); Leukocyte Esterase Negative (Negative); Nitrite Negative (Negative); Specific Gravity 1.025 (1.005-1.025)
[2020-08-17 19:13] LABS: ALT 10 U/L (14-59); AST 9 U/L (15-37); Albumin 3.8 g/dL (3.4-5.0); Alkaline Phosphatase 46 U/L (46-116); Anion Gap 6.8 mmol/L (3-11); BUN 15 mg/dL (7-18); Bilirubin, Total 0.3 mg/dL (0.2-1.0); CO2 27.2 mmol/L (21.0-32.0); CREATININE 0.93 mg/dL (0.55-1.02); Calcium 8.7 mg/dL (8.5-10.1); Chloride 105 mmol/L (98-107); Glucose 95 mg/dL (74-106); Lipase 86 U/L (73-393); Potassium 3.8 mmol/L (3.5-5.1); Sodium 139 mmol/L (136-145); Total Protein 7.2 g/dL (6.4-8.2)
[2020-08-17] MEDS: Normal Saline - Diluent 50 ML VIAL IV (19:18)
[2020-08-17] MEDS: Omnipaque 350 MG/ML 100 ML BTL IJ (19:18)
[2020-08-17] MEDS: Normal Saline Flush 10 ML SYR IVP (19:19)
--- NOTE | 2020-08-17 19:39 | DI.VRAD_ITS ---
PROCEDURE INFORMATION: Exam: CT Abdomen And Pelvis With Contrast Exam date and time: 08/17/2020 6:35 PM Age: 40 years old Clinical indication: Abdominal pain; Localized; Right lower quadrant (rlq); Prior surgery; Surgery date: 6+ months; Surgery type: Tubal ligation and hernia repair; Patient HX: Sudden onset of severe rlq pain and tenderness going across lower abdoman. R/O appendicitis , ovarian cyst TECHNIQUE: Imaging protocol: Computed tomography of the abdomen and pelvis with intravenous contrast. Radiation optimization: All CT scans at this facility use at least one of these dose optimization techniques: automated exposure control; mA and/or kV adjustment per patient size (includes targeted exams where dose is matched to clinical indication); or iterative reconstruction. Contrast material: OMNIPAQUE 350; Contrast volume: 100 ml; Contrast route: INTRAVENOUS (IV); COMPARISON: No relevant prior studies available. FINDINGS: Lungs: Patchy scarring or atelectasis in the lung bases. Heart: Heart size normal. Mediastinal space: The visualized distal esophagus is normal. Liver: Normal size and contour. Well-circumscribed low-density lesion in the left hepatic lobe measuring 3 mm in diameter, demonstrating benign CT features most consistent with hepatic cyst. No further imaging characterization/followup is required based on current consensus criteria. No intrahepatic biliary ductal dilatation. Gallbladder and bile ducts: Normal. No calcified stones. No ductal dilation. Pancreas: Normal. No inflammatory changes or ductal dilation. Spleen: Normal. No splenomegaly. Adrenals: Normal. No adrenal mass. Kidneys and ureters: No acute abnormalities. No hydronephrosis or hydroureter. 3 mm nonobstructive stone in the lower pole of the left kidney. No ureteral stones. Stomach and bowel: The stomach is grossly normal. Question mildly excessive fluid content in the mid and distal small bowel segments with equivocal slight increase in bowel wall enhancement. This is suspicious for mild gastroenteritis. No dasha bowel dilatation or transition point. No evidence of bowel obstruction, perforation, or abscess. Question mild colonic wall thickening in the mid and proximal colonic segments suspicious for mild colitis. No evidence of perforation or abscess. Appendix: The appendix measures 6-7 mm maximum diameter with no associated wall thickening or surrounding inflammatory stranding. No evidence to suggest acute appendicitis. Intraperitoneal space: No free fluid or air. Vasculature: No acute process. No abdominal aortic aneurysm. Lymph nodes: There are few mildly enlarged right lower quadrant ileocolic nodes measuring up to 10 mm short axis. These are nonspecific in nature and may represent reactive bear enlargement from colitis. Bladder: The urinary bladder is largely contracted without gross abnormality. Reproductive: IUD in the uterus, grossly well-positioned. Bones/joints: No acute osseous abnormalities. Mild chronic appearing superior endplate compression of T11, with no acute features. Soft tissues: Small fatty umbilical hernia . No evidence of associated bowel herniation or bowel obstruction. IMPRESSION: 1. Findings suspicious for gastroenteritis and a mild element of proximal colitis. No evidence of bowel obstruction, perforation, or abscess. No evidence of appendicitis. 2. 3 mm nonobstructive left renal stone. No hydronephrosis. 3. Mildly enlarged mesenteric nodes, nonspecific but possibly reactive in nature. 4. Additional incidental findings detailed above. Dictated and Authenticated by: Nino Montaño MD. Ordering:ISABEL Mixon MD
[2020-08-17 20:03] VITALS: BP 127/76; PULSE 79; RESP 16; TEMP 36.8; O2SAT 100
[2020-08-17] MEDS: Ondansetron O.D.T. 4 MG TABEF, 3 TABS/BTL PO (20:04)
== END 2020-08-17 20:04 | disposition home or self-care (01) ==
PROVIDERS: Emergency Provider Physician Assistant; PCP Physician Assistant Medical
DX: K52.89 Other specified noninfective gastroenteritis and colitis (principal); R10.31 Right lower quadrant pain; R11.0 Nausea; N20.0 Calculus of kidney
CPT/HCPCS: 36415; 80053; 81025; 83690; 96361; 96374; 96375; 99285; 74177; 81003; 85025; J1885; J2405; J3490

== ENCOUNTER 2021-02-27 15:59 | Inpatient (IN) | payer MEDICAID, SELFPAY ==
[2021-02-27] VITALS (14 sets, daily range): BP systolic 118–138; BP diastolic 64–84; PULSE 83–122; RESP 14–34; TEMP 36.8–37.5; O2SAT 97–100
--- NOTE | 2021-02-27 16:15 | DI.CT_ITS ---
EXAM: CT RENAL COLIC WO CLINICAL HISTORY: right flank pain,hx of stones. TECHNIQUE: Imaging Protocol: Axial computed tomography images with coronal and sagittal reformatted images were created and reviewed. COMPARISON: CT CT ABDOMEN PELVIS W from 08/17/2020 FINDINGS: ABDOMEN: Lung Bases: Normal where visualized. Liver: Normal density. No measurable mass. The liver measures 21 cm in length. Gallbladder and biliary tract: No radiodense calculus or biliary ductal dilation. Pancreas: Normal density, no abnormal calcifications or inflammatory process. Spleen: The spleen measures 13 cm in length. Kidneys: The right kidney appears mildly prominent with mild perinephric inflammatory changes. No ri ght renal stone or hydronephrosis.There is a 3 mm nonobstructing stone in the lower pole of the left kidney. No masses seen. Adrenal glands: No mass is seen. Lymph nodes: Within normal limits. Abdominal Aorta: Abdominal portion non-dilated. PELVIS: Bladder:The bladder is incompletely distended but grossly unremarkable. Bowel: No obstruction or bowel wall thickening. There is no inflammatory change in the right lower qu adrant. Peritoneal cavity: No ascites, collection or mesenteric inflammatory response. No free air. Reproductive organs: There is an intrauterine device in place. Bilateral ovarian cysts are seen. Th e largest is seen on the right which measures 3 cm. Bones: Within normal limits. Soft Tissues: Within normal limits. IMPRESSION: 1. Findings suggestive of right-sided pyelonephritis. No evidence of right nephrolithiasis or hydron ephrosis. 2. 3 cm right follicular ovarian cyst. This may be further evaluated with ultrasound. 3. No inflammatory changes are seen in the right lower quadrant. Please correlate with physical exam , patient history, laboratory evaluation and possible follow-up CT scan if there is concern for acute appendicitis. RADIATION DOSE DELIVERED: 987.48mGy.cm Total DLP DATA REPOSITORY: All CT scans at this facility are submitted to the National Radiology Data Registry (NRDR) Dose Index Registry (DIR) with the [employer] (ACR). RADIATION OPTIMIZATION: All CT scans at this facility use at least one of these dose optimization te chniques: automated exposure control; mA and/or kV adjustment per patient size (includes targeted exa ms where dose is matched to clinical indication); or iterative reconstruction.
[2021-02-27 16:22] LABS: Bilirubin Negative (Negative); Blood Moderate (Negative); Clarity Cloudy (Clear); Glucose Negative (Negative); Ketones Negative (Negative); Leukocyte Esterase Small (Negative); Nitrite Positive (Negative)
[2021-02-27 16:29] LABS: Bacteria Many HPF (Negative); C & S Indicated? No/Sq. Contamination; Casts Negative LPF (Negative); Crystals Negative HPF (Negative); Epithelial Cells Many HPF (Negative); Mucus Negative (Negative); Other Cells Few Renal (Negative); WBC >50 HPF (0-5)
--- NOTE | 2021-02-27 16:35 | W.ED.GENAD ---
Discharge Plan Discharge Details Chief Complaint: Urinary Primary Care Provider: Freida Cristina ED Provider: Maryan Post Home Meds and New Rx's Prescriptions: No Action prochlorperazine maleate 5 mg tablet 5 mg PO TID PRN (Reason: headaches) Qty: 30 RF: 5 escitalopram oxalate 10 mg tablet 30 mg PO DAILY RF: 0 Mirena 20 mcg/24 hours (5 yrs) 52 mg intrauterine device 1 device IY ONCE RF: 0 Pain Contract With Pcp RF: 0 albuterol sulfate [ProAir HFA] 200 PUFF HFA aerosol inhaler 2 puff Inhalation Q6H PRN PRNQty: 1 RF: 0 ondansetron 4 mg tablet,disintegrating 4 mg PO TID PRN (Reason: nausea and vomiting) Qty: 6 RF: 0 Medical Decision Making Patient with creatinine of 2, potassium of 2.9, leukocytosis 12.2, meet sepsis criteria, lactate negative No hypotension No QTC prolongation, did discuss the CT finding with Dr. Krause, [facility] radiologist and he states that the patient has acute right-sided pyelonephritis, consistent with urinalysis findings of greater than 50 white blood cells, culture pending Case discussed with Dr. Godinez, on-call surgeon, she states that without inflammatory changes on CT findings, her suspicion for appendicitis was quite low especially with clinical findings consistent with pyelonephritis Started on ceftriaxone 2 g empirically Case discussed with Dr. Spangler, will admit Potassium supplemented 2 L of normal saline for suspected prerenal insufficiency CT findings without concern for obvious abscess Differential Diagnosis Differential Diagnosis: Appendicitis, pyelonephritis, cystitis, tubo-ovarian abscess Medical Records Medical records reviewed: Yes I reviewed the patient's medical records. Lab Data Lab results reviewed: Yes I reviewed the patient's lab results. HPI This 40-year-old female presents with history of migraine headache. Presents with report of fever for the past 7 days. Denies any chest pain or shortness of breath. Denies dizziness or weakness. Feels very tired. She states but at max her temp was 103.82 days ago. Today her temp was 101.5 prior to arrival she did take Tylenol approximately an hour before coming to the emergency room. She has been nauseous and vomiting all morning. Her last episode of vomiting at approximately 11. She denies chance of . She denies any cough, chest pain, shortness of breath. The pain that she is having is predominantly in her right flank. She states she has a history of kidney stones. She denies prior history of stent or urology follow-up. She denies any risk of sexually transmitted disease. She checks in the monogamous with her boyfriend of 1 year. She denies any abnormal vaginal discharge. She denies history of similar symptoms in the past. She denies any immunosuppression. General Date/Time Provider Initiated Documentation: 02/27/21 16:00. Related Data Home Medications Medication Instructions Recorded Confirmed Pain Contract With Pcp 04/06/14 12/09/19 albuterol sulfate [ProAir HFA] 2 puff INHALATION Q6H PRN PRN #1 07/22/16 12/09/19 inh levonorgestrel 20 mcg/24 hours (6 1 device IY ONCE 12/09/19 02/27/21 yrs) 52 mg intrauterine device escitalopram oxalate 10 mg tablet 30 mg PO DAILY tab 02/26/20 02/26/20 prochlorperazine maleate 5 mg 5 mg PO TID PRN #30 tab 02/26/20 02/27/21 tablet ondansetron 4 mg PO TID PRN #6 tab 08/17/20 Previous Rx's Medication Instructions Recorded albuterol sulfate [ProAir HFA] 2 puff INHALATION Q6H PRN PRN #1 07/22/16 inh prochlorperazine maleate 5 mg 5 mg PO TID PRN #30 tab 02/26/20 tablet ondansetron 4 mg PO TID PRN #6 tab 08/17/20 Allergies Allergy/AdvReac Type Severity Reaction Status Date / Time gentamicin Allergy Mild Visual Unverified 08/17/20 18:24 Disturbances ibuprofen AdvReac Nausea Unverified 08/17/20 18:24 methocarbamol [From Robaxin] AdvReac Unverified 08/17/20 18:32 strawberries Allergy Mild Uncoded 08/17/20 18:24 General Stated Complaint: Urinary SOURAV: 3 Review of Systems Narrative: Review of systems obtained x7 stated in [facility] Medical History (Updated 09/17/20 @ 00:01 by DAVINA HARRINGTON) Anxiety Irritable bowel syndrome Migraine headache without aura Surgical History History of bilateral tubal ligation History of hernia repair History of lumbar discectomy Social History Smoking/Tobacco Use Status: Current-Occasional Tobacco Type: cigarettes Smoking risk assessment performed?: Yes Alcohol Intake: current Alcohol Intake frequency: a few times a month Drug use: Rarely Substance use type: does not use Housing: other Details: trailer Number of Children: 3 What is your relationship status?: Panel score (0-1 are the most socially isolated patients): 0 Seatbelt use: sometimes Do you feel safe at home: Yes Do you feel safe in your relationship?: Yes Exam Const General: cooperative and comfortable Orientation: alert HENMT Other: Moist mucous membranes Eyes Other: No scleral icterus Chest Chest: normal inspection of the chest Resp Effort & Inspection: normal respiratory effort GI Other: Right CVA tenderness, right lower quadrant tenderness Skin General skin exam: no rashes or lesions noted Neuro General: patient alert and patient oriented x3 Course Vital Signs Vital signs: Vital Signs Temperature 36.8 C 02/27/21 16:03 Pulse 122 H 02/27/21 16:03 Respiratory Rate 16 02/27/21 16:03 Blood Pressure 138/74 02/27/21 16:03 Pulse Oximetry 100 02/27/21 16:03 Temperature 36.8 C 02/27/21 16:03 Temperature Source Skin 02/27/21 16:03 Pulse 122 H 02/27/21 16:03 Respiratory Rate 16 02/27/21 16:03 Respiratory Effort 02/27/21 16:07 Blood Pressure 138/74 02/27/21 16:03 Blood Pressure Position Sitting 02/27/21 16:03 Pulse Oximetry 100 02/27/21 16:03 Oxygen Delivery Method Room Air 02/27/21 16:03 Oxygen Flow Rate 0 02/27/21 16:03 Pain Level 3 02/27/21 16:14 Lab/Test Results Lab/Test Results: 02/27/21 16:27 Blood Blood Culture - Pending 02/27/21 16:27 Blood Blood Culture - Pending Laboratory Tests Range/Units 02/27/21 16:10 Urine Color (Yellow) Yellow Urine Clarity (Clear) Cloudy Urine pH (5-8) 6.0 Ur Specific [place] (1.005-1.025) 1.020 Urine Protein (Negative) mg/dL >=300 H Urine Ketones (Negative) mg/dL Negative Urine Blood (Negative) Moderate H Urine Nitrite (Negative) Positive H Urine Bilirubin (Negative) Negative Urine Urobilinogen (Up TO 0.2) EU/dL 1.0 H Ur Leukocyte Esterase (Negative) Small H Urine RBC (0-2) HPF Urine WBC (0-5) HPF >50 H Ur Epithelial Cells (Negative) HPF Many Urine Crystals (Negative) HPF Negative Urine Bacteria (Negative) HPF Many Urine Casts (Negative) LPF Negative Urine Mucus (Negative) Negative Urine Other (Negative) Few renal Ur Culture Indicated? No/sq. contamination Urine Glucose (Negative) mg/dL Negative Critical Care Time Critical Care Time Critical Care Time: Yes Total Critical Care Time: 35 Attestation: IV fluid hydration, telemetry monitoring, surgical consultation, IV antibiotics, potassium supplementation
[2021-02-27] MEDS: Normal Saline 1,000 ML 1000 ML IV (16:55)
[2021-02-27 17:04] LABS: Abs Immature Grans 0.31 10^3/uL (0.0-0.06); Absolute Lymphocyte Count 2.13 10^3/uL (1.2-3.4); Basophils % 0.6; Eosinophils % 1.4; HCT 36.1 % (36.0-46.0); HGB 12.1 g/dL (11.2-15.7); Immature Grans % 2.5; Lactate 0.6 mmol/L (0.6-1.4); MCH 28.5 pg (27.0-33.0); MCHC 33.5 % (32.0-36.0); MCV 85.1 fL (80-95); Neutrophils % 65.5; Nucleated RBC 0 %; Platelet Count 371 10^3/uL (130-400); RBC 4.24 10^6/uL (3.93-5.22); RDW 12.8 % (11.7-14.6); RDW-SD 39.6 fL
[2021-02-27 17:07] LABS: Absolute Basophil Count 0.08 10^3/uL (0.0-0.2); Absolute Eosinophil Count 0.18 10^3/uL (0.0-0.7); Absolute Monocyte Count 1.63 10^3/uL (0.1-0.8); Absolute Neutrophil Count 8.19 10^3/uL (1.2-6.7)
[2021-02-27] MEDS: Ondansetron 4 MG/2 ML VIAL IVP (17:10)
--- NOTE | 2021-02-27 17:15 | DI.RAD_ITS ---
EXAM: XR CHEST 2V PA LATERAL CLINICAL HISTORY: fever and chills TECHNIQUE: 2D digital imaging was performed. COMPARISON: CR CHEST 2 VIEWS PA,LAT from 07/22/2016 FINDINGS: MEDIASTINUM: Normal. HEART: Normal. PULMONARY VASCULATURE: Normal. LUNGS: Clear. PLEURAL SPACE: No pleural effusion or pneumothorax. BONE:Within normal limits for the patient's age. OTHER FINDINGS:Normal. IMPRESSION: No acute pulmonary findings. DATA REPOSITORY: RADIATION DOSE DELIVERED:
[2021-02-27 17:19] LABS: ALT 19 U/L (14-59); AST 10 U/L (15-37); Albumin 2.9 g/dL (3.4-5.0); Alkaline Phosphatase 100 U/L (46-116); Anion Gap 10.5 mmol/L (3-11); BUN 27 mg/dL (7-18); Bilirubin, Total 0.3 mg/dL (0.2-1.0); CO2 24.5 mmol/L (21.0-32.0); CREATININE 2.1 mg/dL (0.55-1.02); Calcium 9.1 mg/dL (8.5-10.1); Chloride 101 mmol/L (98-107); Estimated GFR 26.22 (mL/min/1.73m2); Glucose 107 mg/dL (74-106); Sodium 136 mmol/L (136-145); Total Protein 8.1 g/dL (6.4-8.2)
[2021-02-27 17:21] LABS: Potassium 2.9 mmol/L (3.5-5.1)
--- NOTE | 2021-02-27 17:30 | RT.EKG_ITS ---
APPROVED REPORT Exam: Resting ECG Patient Location: E HR:86 bpm ECG Measurements Heart Rate 86 AXIS OK 121 P 73 QRSd 98 QRS 52 QT 345 T 8 QTc 414 Conclusion Sinus rhythm...normal P axis, V-rate 60- 99
[2021-02-27 17:33] LABS: Magnesium 2.2 mg/dL (1.8-2.4)
[2021-02-27] MEDS: fentaNYL 100 MCG/2 ML VIAL 50 MCG IVP (17:47)
--- NOTE | 2021-02-27 17:48 | DI.VRAD_ITS ---
PROCEDURE INFORMATION: Exam: CT Abdomen And Pelvis Without Contrast Exam date and time: 02/27/2021 4:31 PM Age: 40 years old Clinical indication: Abdominal pain; Flank; Right; Patient HX: HX of stones TECHNIQUE: Imaging protocol: Computed tomography of the abdomen and pelvis without contrast. Total images: 1275 COMPARISON: CT ABDOMEN PELVIS W 08/17/2020 7:07 PM FINDINGS: Lungs: Lung bases are unremarkable. Liver: No gross mass. Gallbladder and bile ducts: No calcified stones. No definite gallbladder wall thickening or biliary dilatation. Pancreas: No mass or peripancreatic edema. Spleen: No splenomegaly. Adrenal glands: No adrenal nodule. Kidneys and ureters: There is a solitary 3 mm stone in the lower pole of the left kidney. There is mild enlargement of the right kidney with mild asymmetric right perinephric stranding. There is no right-sided stone disease. No hydronephrosis. Stomach and bowel: Stomach is grossly unremarkable. No small or large bowel dilatation. No definite bowel wall thickening. Appendix: The appendix appears mildly distended measuring 1.1 cm in transverse dimension. This is enlarged since the prior study. There is no inflammation adjacent to the appendix. No appendicolith. Intraperitoneal space: No free fluid within the pelvis. No free air. Vasculature: No abdominal aortic aneurysm. Lymph nodes: No significant adenopathy. Urinary bladder: Bladder is empty limiting evaluation. Reproductive: There is a 3 mm right adnexal cystic lesion. There are follicular changes in the left ovary. There is an IUD properly position within an anteverted uterus. Bones/joints: There is degenerative disc disease at L4-L5 and L5-S1. Soft tissues: Extra-abdominal soft tissues are unremarkable. IMPRESSION: 1. Findings consistent with right-sided pyelonephritis. No obstructing stone. 2. Mildly prominent appendix. Cannot rule out early appendicitis. 3. Probable right ovarian follicular cyst which can be confirmed ultrasonically. 4. THIS REPORT CONTAINS FINDINGS THAT MAY BE CRITICAL TO PATIENT CARE. The findings were verbally communicated via telephone conference with Maryan Post at 5:48 PM EDT on 02/27/2021. The findings were acknowledged and understood. Dictated and Authenticated by: Channing King MD. Ordering:NEYMAR Steinberg MD
--- NOTE | 2021-02-27 17:50 | DI.VRAD_ITS ---
PROCEDURE INFORMATION: Exam: XR Chest Exam date and time: 02/27/2021 5:32 PM Age: 40 years old Clinical indication: Fever TECHNIQUE: Imaging protocol: XR of the chest Views: 2 views. Total images: 2 COMPARISON: CR CHEST 2 VIEWS PA,LAT 07/22/2016 6:31 PM FINDINGS: Lungs: Lungs are clear without consolidation. Pulmonary mayra: Unremarkable contours. Pleural spaces: No pleural effusion. No pneumothorax. Heart/Mediastinum: Unremarkable contours. No cardiomegaly. Bones/joints: Unremarkable. Intraperitoneal space: Visualized upper abdomen is unremarkable. IMPRESSION: No acute findings. Dictated and Authenticated by: Channing King MD. Ordering:NEYMAR Steinberg MD
[2021-02-27 17:58] LABS: Diff Comment Diff Reviewed; RBC Morphology Normal
--- NOTE | 2021-02-27 18:23 | W.PM.HP.N ---
Date of service: 02/27/21 Time of Service: 18:23 Assessment and Plan Assessment and plan (1) Pyelonephritis: Status: Acute Assessment and plan: Pyelo. Empiric antibiotics pending culture results, with prn analgesics and antiemetics. There remains a question whether the patient may also have a coincidental appendicitis. Though in other circumstance one might consider the RLQ pain a radiation of flank pain, in this case the CT findings and the specific pain and tenderness at McBurney's point could make a plausible argument for appendicitis. I think an interim strategy would be an abx regimen to cover both the pyelo and an intra-abdominal source and Zosyn would make a good choice. Will have surgery follow up in AM (ER is going to review these issues again with surgery). SEFERINO/electrolytes: fluids and potassium replacement, and track labs. Tobacco use (1/2 PPD): prn patch (14 mg) History of Present Illness History of Present Illness Chief Complaint: flank pain Narrative: 40 female here with one week right flank pain, nausea and fever (to 103). Doesn't like doctors so held out, but feeling more nauseous today so came in. In ER findings of note for eutensive; sinus tachycardia; euthermia; SEFERINO, hypokalemia (2.9) , pyuria and CT c/w right pyelo, w/o stone or hydro. Has received Fenatnyl 50, Zofran, 2 gm Rocephin. Patient also reports a separate pain in RLQ and points to McBurney's point. CT showed slightly dilated appendix but no signs of inflammation. ER reviewed with surgery who it is reported felt that pyelo was the overarching correct diagnosis and that the findings in appendix likely incidental. I was called to assess for admission. Review of Systems All systems reviewed & are unremarkable except as noted in HPI and below PFSH Medical History (Updated 02/27/21 @ 18:34 by Moe Spangler MD) Anxiety Irritable bowel syndrome Migraine headache without aura Surgical History History of bilateral tubal ligation History of hernia repair History of lumbar discectomy Social History Smoking/Tobacco Use Status: Current-Occasional Tobacco Type: cigarettes Smoking risk assessment performed?: Yes Alcohol Intake: current Alcohol Intake frequency: a few times a month Drug use: Rarely Substance use type: does not use Housing: other Details: trailer Number of Children: 3 What is your relationship status?: Panel score (0-1 are the most socially isolated patients): 0 Seatbelt use: sometimes Do you feel safe at home: Yes Do you feel safe in your relationship?: Yes Meds Home Medications and Allergies Allergies Allergy/AdvReac Type Severity Reaction Status Date / Time gentamicin Allergy Mild Visual Unverified 08/17/20 18:24 Disturbances ibuprofen AdvReac Nausea Unverified 08/17/20 18:24 methocarbamol [From Robaxin] AdvReac Unverified 08/17/20 18:32 strawberries Allergy Mild Uncoded 08/17/20 18:24 Home Medications Medication Instructions Recorded Confirmed Type Pain Contract With Pcp 04/06/14 12/09/19 History albuterol sulfate [ProAir HFA] 2 puff INHALATION Q6H PRN PRN #1 07/22/16 12/09/19 Rx inh levonorgestrel 20 mcg/24 hours (6 1 device IY ONCE 12/09/19 02/27/21 History yrs) 52 mg intrauterine device escitalopram oxalate 10 mg tablet 30 mg PO DAILY tab 02/26/20 02/26/20 History prochlorperazine maleate 5 mg 5 mg PO TID PRN #30 tab 02/26/20 02/27/21 Rx tablet ondansetron 4 mg PO TID PRN #6 tab 08/17/20 Rx Exam Narrative Exam Narrative: 138/74, 122, 36.8, 16, 100% RA. HEENT atraumatic; neck supple; lungs clear; heart tachy/regular; back + right CVAT; abdomen soft, tender at McBurney's point, without rebound; extremities w/o edema, neuro Ox3, moves all4s. Results Labs Result diagrams: 02/27/21 16:45 02/27/21 16:45 Labs: Laboratory Results - last 24 hr 02/27/21 02/27/21 02/27/21 16:10 16:45 16:45 WBC RBC Hgb Hct MCV MCH MCHC RDW Plt Count MPV Immature Gran % Neutrophils % Lymphocytes % Monocytes % Eosinophils % Basophils % Nucleated RBC % Absolute Neutrophils Absolute Lymphocytes Absolute Monocytes Absolute Eosinophils Absolute Basophils RBC Morphology VBG Lactate 0.6 Sodium 136 Potassium 2.9 L Chloride 101 Carbon Dioxide 24.5 Anion Gap 10.5 BUN 27 H Creatinine 2.1 H Estimated GFR/1.73 m2 26.22 Glucose 107 H Calcium 9.1 Magnesium Total Bilirubin 0.3 AST 10 L ALT 19 Alkaline Phosphatase 100 Total Protein 8.1 Albumin 2.9 L Urine Color Yellow Urine Clarity Cloudy Urine pH 6.0 Ur Specific [place] 1.020 Urine Protein >=300 H Urine Ketones Negative Urine Blood Moderate H Urine Nitrite Positive H Urine Bilirubin Negative Urine Urobilinogen 1.0 H Ur Leukocyte Esterase Small H Urine RBC Urine WBC >50 H Ur Epithelial Cells Many Urine Crystals Negative Urine Bacteria Many Urine Casts Negative Urine Mucus Negative Urine Other Few renal Ur Culture Indicated? No/sq. contamination Urine Glucose Negative 02/27/21 02/27/21 16:45 16:45 WBC 12.50 H RBC 4.24 Hgb 12.1 Hct 36.1 MCV 85.1 MCH 28.5 MCHC 33.5 RDW 12.8 Plt Count 371 MPV 10.0 Immature Gran % 2.5 Neutrophils % 65.5 Lymphocytes % 17.0 Monocytes % 13.0 Eosinophils % 1.4 Basophils % 0.6 Nucleated RBC % 0 Absolute Neutrophils 8.19 H Absolute Lymphocytes 2.13 Absolute Monocytes 1.63 H Absolute Eosinophils 0.18 Absolute Basophils 0.08 RBC Morphology Normal VBG Lactate Sodium Potassium Chloride Carbon Dioxide Anion Gap BUN Creatinine Estimated GFR/1.73 m2 Glucose Calcium Magnesium 2.2 Total Bilirubin AST ALT Alkaline Phosphatase Total Protein Albumin Urine Color Urine Clarity Urine pH Ur Specific [place] Urine Protein Urine Ketones Urine Blood Urine Nitrite Urine Bilirubin Urine Urobilinogen Ur Leukocyte Esterase Urine RBC Urine WBC Ur Epithelial Cells Urine Crystals Urine Bacteria Urine Casts Urine Mucus Urine Other Ur Culture Indicated? Urine Glucose Last Vital Signs Temp 36.8 C 02/27/21 16:03 Pulse 122 H 02/27/21 16:03 Resp 16 02/27/21 16:03 BP 138/74 02/27/21 16:03 Pulse Ox 100 02/27/21 16:03 COVID-19 Screening Have you, or household traveled for leisure in last 14 days?: No Had IN PERSON contact w/suspected or confirmed C-19 person: No
[2021-02-27] MEDS: Potassium Chloride 20 MEQ TABCR 40 MEQ PO (18:30)
[2021-02-27 19:13] LABS: COVID-19 PCR Negative (Negative)
[2021-02-27] MEDS: Normal Saline Flush 10 ML SYR (20:45)
[2021-02-27] MEDS: POTASSIUM CHLORIDE/0.9% NACL 1,000 ML 150 MEQ IV (20:50)
[2021-02-27] MEDS: Nicotine 14 MG/24 HR PATCH TD (20:50)
[2021-02-27] MEDS: Zolpidem 5 MG TAB PO (21:55)
[2021-02-27] MEDS: ACETAMINOPHEN 1,000 MG/100 ML BTL 400 MG IVPB (21:56)
[2021-02-27] MEDS: PIPERACILLIN/TAZO 4.5 GM in Normal Saline 100 ML IVPB (21:56)
[2021-02-28] MEDS: PIPERACILLIN/TAZO 4.5 GM in Normal Saline 100 ML IVPB ×4 (03:26→19:54)
[2021-02-28] MEDS: POTASSIUM CHLORIDE/0.9% NACL 1,000 ML 150 MEQ IV ×3 (03:30→21:23)
[2021-02-28] MEDS: MORPHine 4 MG/ML SYR IVP (07:14)
[2021-02-28] MEDS: Normal Saline Flush 10 ML SYR IVP ×4 (07:15→19:55)
[2021-02-28 07:20] LABS: HCT 29.5 % (36.0-46.0); MCH 27.9 pg (27.0-33.0); MCHC 32.9 % (32.0-36.0); MCV 84.8 fL (80-95); MPV 10.3 fL (8.0-11.0); Platelet Count 310 10^3/uL (130-400); RBC 3.48 10^6/uL (3.93-5.22); RDW 13.1 % (11.7-14.6); RDW-SD 40.3 fL; WBC 10.65 10^3/uL (4.4-10.8)
[2021-02-28 07:36] LABS: Anion Gap 13.2 mmol/L (3-11); BUN 21 mg/dL (7-18); CO2 19.8 mmol/L (21.0-32.0); CREATININE 1.4 mg/dL (0.55-1.02); Calcium 7.5 mg/dL (8.5-10.1); Chloride 107 mmol/L (98-107); Estimated GFR 41.86 (mL/min/1.73m2); Glucose 101 mg/dL (74-106); Potassium 3.7 mmol/L (3.5-5.1); Sodium 140 mmol/L (136-145)
[2021-02-28 08:01] LABS: HGB 9.7 g/dL (11.2-15.7)
[2021-02-28 08:03] VITALS: BP 126/79; PULSE 90; RESP 19; TEMP 36.9; O2SAT 100
--- NOTE | 2021-02-28 08:52 | SCONE_ITS ---
Date of service: 02/28/21 Time of Service: 08:52 Assessment and Plan Assessment and plan (1) RLQ abdominal pain: Status: Acute Assessment and plan: A// Given patient's history and lack of inflammatory changes on CT scan, she does not appear to have acute appendicitis. WBC count normal this morning. Mild RLQ tenderness with palpation. Recommend she continue with IV hydration and treatment for pylonephritis. Continue to monitor, if her symptoms continue or worsen over the next 24-48 hours, suggest a follow up CT scan with oral contrast. Thank you for your consult. P// Will sign off on this patient. Please contact us if you have any further questions or concerns. History of Present Illness History of Present Illness Chief Complaint: RLQ and pyelonephritis Narrative: 40 y/o female presented to the ER with complaints of a 1 week history of nausea, vomiting and back pain. CT scan did no show any inflammatory changes in the RLQ to suggest acute appendicitis. This morning Alicia reports she is feeling better, with continued RLQ soreness. She reports that her urinary complaints have improved since receiving IV hydration. She denies any nausea or vomiting this morning. Review of Systems Constitutional Constitutional: Reports as per [facility] Medical History (Updated 02/28/21 @ 08:55 by KASEY Hightower) Anxiety Irritable bowel syndrome Migraine headache without aura Surgical History History of bilateral tubal ligation History of hernia repair History of lumbar discectomy Social History Smoking/Tobacco Use Status: Current-Occasional Tobacco Type: cigarettes Smoking risk assessment performed?: Yes Alcohol Intake: current Alcohol Intake frequency: a few times a month Drug use: Rarely Substance use type: does not use Housing: other Details: trailer Number of Children: 3 What is your relationship status?: Panel score (0-1 are the most socially isolated patients): 0 Seatbelt use: sometimes Do you feel safe at home: Yes Do you feel safe in your relationship?: Yes Exam Const General: cooperative, healthy appearing and comfortable Orientation: alert and oriented x3 Resp Effort & Inspection: normal respiratory effort, no audible wheezes and no cough GI Inspection: normal to inspection Palpation: soft, no guarding and tender in the RLQ Percussion: no fluid wave Other: No signs of peritonitis Results Last Vital Signs Temp 36.9 C 02/28/21 08:03 Pulse 90 02/28/21 08:03 Resp 19 02/28/21 08:03 BP 126/79 02/28/21 08:03 Pulse Ox 100 02/28/21 08:03 Labs Result diagrams: 02/28/21 06:25 02/28/21 06:25 Labs: Laboratory Results - last 24 hr 02/27/21 02/27/21 02/27/21 16:10 16:45 16:45 WBC RBC Hgb Hct MCV MCH MCHC RDW Plt Count MPV Immature Gran % Neutrophils % Lymphocytes % Monocytes % Eosinophils % Basophils % Nucleated RBC % Absolute Neutrophils Absolute Lymphocytes Absolute Monocytes Absolute Eosinophils Absolute Basophils RBC Morphology VBG Lactate 0.6 Sodium 136 Potassium 2.9 L Chloride 101 Carbon Dioxide 24.5 Anion Gap 10.5 BUN 27 H Creatinine 2.1 H Estimated GFR/1.73 m2 26.22 Glucose 107 H Calcium 9.1 Magnesium Total Bilirubin 0.3 AST 10 L ALT 19 Alkaline Phosphatase 100 Total Protein 8.1 Albumin 2.9 L Urine Color Yellow Urine Clarity Cloudy Urine pH 6.0 Ur Specific [place] 1.020 Urine Protein >=300 H Urine Ketones Negative Urine Blood Moderate H Urine Nitrite Positive H Urine Bilirubin Negative Urine Urobilinogen 1.0 H Ur Leukocyte Esterase Small H Urine RBC Urine WBC >50 H Ur Epithelial Cells Many Urine Crystals Negative Urine Bacteria Many Urine Casts Negative Urine Mucus Negative Urine Other Few renal Ur Culture Indicated? No/sq. contamination Urine Glucose Negative COVID-19 Source SARS-CoV-2 (PCR) 02/27/21 02/27/21 02/27/21 16:45 16:45 18:25 WBC 12.50 H RBC 4.24 Hgb 12.1 Hct 36.1 MCV 85.1 MCH 28.5 MCHC 33.5 RDW 12.8 Plt Count 371 MPV 10.0 Immature Gran % 2.5 Neutrophils % 65.5 Lymphocytes % 17.0 Monocytes % 13.0 Eosinophils % 1.4 Basophils % 0.6 Nucleated RBC % 0 Absolute Neutrophils 8.19 H Absolute Lymphocytes 2.13 Absolute Monocytes 1.63 H Absolute Eosinophils 0.18 Absolute Basophils 0.08 RBC Morphology Normal VBG Lactate Sodium Potassium Chloride Carbon Dioxide Anion Gap BUN Creatinine Estimated GFR/1.73 m2 Glucose Calcium Magnesium 2.2 Total Bilirubin AST ALT Alkaline Phosphatase Total Protein Albumin Urine Color Urine Clarity Urine pH Ur Specific [place] Urine Protein Urine Ketones Urine Blood Urine Nitrite Urine Bilirubin Urine Urobilinogen Ur Leukocyte Esterase Urine RBC Urine WBC Ur Epithelial Cells Urine Crystals Urine Bacteria Urine Casts Urine Mucus Urine Other Ur Culture Indicated? Urine Glucose COVID-19 Source Nasopharyx SARS-CoV-2 (PCR) Negative 02/28/21 02/28/21 06:25 06:25 WBC 10.65 RBC 3.48 L Hgb 9.7 L D Hct 29.5 L MCV 84.8 MCH 27.9 MCHC 32.9 RDW 13.1 Plt Count 310 MPV 10.3 Immature Gran % Neutrophils % Lymphocytes % Monocytes % Eosinophils % Basophils % Nucleated RBC % Absolute Neutrophils Absolute Lymphocytes Absolute Monocytes Absolute Eosinophils Absolute Basophils RBC Morphology VBG Lactate Sodium 140 Potassium 3.7 D Chloride 107 Carbon Dioxide 19.8 L Anion Gap 13.2 H BUN 21 H D Creatinine 1.4 H D Estimated GFR/1.73 m2 41.86 Glucose 101 Calcium 7.5 L Magnesium Total Bilirubin AST ALT Alkaline Phosphatase Total Protein Albumin Urine Color Urine Clarity Urine pH Ur Specific [place] Urine Protein Urine Ketones Urine Blood Urine Nitrite Urine Bilirubin Urine Urobilinogen Ur Leukocyte Esterase Urine RBC Urine WBC Ur Epithelial Cells Urine Crystals Urine Bacteria Urine Casts Urine Mucus Urine Other Ur Culture Indicated? Urine Glucose COVID-19 Source SARS-CoV-2 (PCR)
[2021-02-28] MEDS: ACETAMINOPHEN 1,000 MG/100 ML BTL 400 MG IVPB ×2 (09:10→15:29)
[2021-02-28 12:30] LABS: C-Reactive Protein 12.82 mg/dL (0.0-0.3)
--- NOTE | 2021-02-28 15:20 | CHAPLAIN ---
I had a brief visit with Alicia this morning. She was trying to rest. I will check back with her tomorrow.
[2021-02-28] MEDS: cefTRIAXone 2 GM/50 ML BAG IVPB (15:29)
[2021-02-28 16:30] VITALS: BP 123/78; PULSE 89; RESP 15; TEMP 37.9; O2SAT 98
--- NOTE | 2021-02-28 16:37 | PGE_ITS ---
Date of Service Date of service: 02/28/21 Time of Service: 16:37 Assessment and Plan Assessment and plan (1) Sepsis: Status: Acute Assessment and plan: Due to pyelonephritis, present on admission. Await blood cultures. Continue empiric ceftriaxone. (2) Pyelonephritis: Status: Acute Assessment and plan: As above (3) SEFERINO (acute kidney injury): Status: Acute Assessment and plan: Improved with treatment of pyelonephritis and IV hydration. Continue IVF. Low dose of toradol should be safe to introduce at this point. (4) Pain: Status: Acute Assessment and plan: As above. Add toradol to the regimen. Heat. (5) Right ovarian cyst: Status: Acute Assessment and plan: May be contributing to RLQ pain. Pain control as above. Consider PIPE RECOVERY SPECIALIST c/s if pain still significant tomorrow. (6) DVT prophylaxis: Status: Acute Assessment and plan: Not indicated in an ambulatory 40 year old female (7) Discharge planning issues: Status: Acute Assessment and plan: Full code Continues to require hospitalization. Subjective Subjective Interval history since last seen: STill has significant RLQ pain and right lower back pain. Tired and sleepy all day. Denies dizziness, chest pain, shortness of breath, nausea. Ready to try some solid food. No appendicitis, per surgery. Exam Narrative Exam Narrative: General: Pleasant female, laying in bed, tired, uncomfortable, A&Ox3 HEENT: EOMI, MMM Heart: RRR, no m/r/g Lungs: CTAB Abdomen: soft, tender in RLQ, nondistended. Pain right lower back Extremities: no edema BLE's. Objective Last Vital Signs Temp 36.9 C 02/28/21 08:03 Pulse 90 02/28/21 08:03 Resp 19 02/28/21 08:03 BP 126/79 02/28/21 08:03 Pulse Ox 100 02/28/21 08:03 Laboratory Results - last 24 hr 02/27/21 02/27/21 02/27/21 16:45 16:45 16:45 WBC 12.50 H RBC 4.24 Hgb 12.1 Hct 36.1 MCV 85.1 MCH 28.5 MCHC 33.5 RDW 12.8 Plt Count 371 MPV 10.0 Immature Gran % 2.5 Neutrophils % 65.5 Lymphocytes % 17.0 Monocytes % 13.0 Eosinophils % 1.4 Basophils % 0.6 Nucleated RBC % 0 Absolute Neutrophils 8.19 H Absolute Lymphocytes 2.13 Absolute Monocytes 1.63 H Absolute Eosinophils 0.18 Absolute Basophils 0.08 RBC Morphology Normal VBG Lactate 0.6 Sodium 136 Potassium 2.9 L Chloride 101 Carbon Dioxide 24.5 Anion Gap 10.5 BUN 27 H Creatinine 2.1 H Estimated GFR/1.73 m2 26.22 Glucose 107 H Calcium 9.1 Magnesium Total Bilirubin 0.3 AST 10 L ALT 19 Alkaline Phosphatase 100 C-Reactive Protein Total Protein 8.1 Albumin 2.9 L COVID-19 Source SARS-CoV-2 (PCR) 02/27/21 02/27/21 02/28/21 16:45 18:25 06:25 WBC RBC Hgb Hct MCV MCH MCHC RDW Plt Count MPV Immature Gran % Neutrophils % Lymphocytes % Monocytes % Eosinophils % Basophils % Nucleated RBC % Absolute Neutrophils Absolute Lymphocytes Absolute Monocytes Absolute Eosinophils Absolute Basophils RBC Morphology VBG Lactate Sodium 140 Potassium 3.7 D Chloride 107 Carbon Dioxide 19.8 L Anion Gap 13.2 H BUN 21 H D Creatinine 1.4 H D Estimated GFR/1.73 m2 41.86 Glucose 101 Calcium 7.5 L Magnesium 2.2 Total Bilirubin AST ALT Alkaline Phosphatase C-Reactive Protein 12.82 H Total Protein Albumin COVID-19 Source Nasopharyx SARS-CoV-2 (PCR) Negative 02/28/21 06:25 WBC 10.65 RBC 3.48 L Hgb 9.7 L D Hct 29.5 L MCV 84.8 MCH 27.9 MCHC 32.9 RDW 13.1 Plt Count 310 MPV 10.3 Immature Gran % Neutrophils % Lymphocytes % Monocytes % Eosinophils % Basophils % Nucleated RBC % Absolute Neutrophils Absolute Lymphocytes Absolute Monocytes Absolute Eosinophils Absolute Basophils RBC Morphology VBG Lactate Sodium Potassium Chloride Carbon Dioxide Anion Gap BUN Creatinine Estimated GFR/1.73 m2 Glucose Calcium Magnesium Total Bilirubin AST ALT Alkaline Phosphatase C-Reactive Protein Total Protein Albumin COVID-19 Source SARS-CoV-2 (PCR)
[2021-02-28] MEDS: Ketorolac 15 MG/ML VIAL IVP (17:58)
--- NOTE | 2021-02-28 19:09 | INITIAL_ITS ---
- If Service Date Differs Date of service: 02/28/21 Time of Service: 19:09 Care Management Initial Assess REASON FOR HOSPITALIZATION:: Pyelo PAST MEDICAL HISTORY/PAST SURGICAL HISTORY:: Medical History. Anxiety. Irritable bowel syndrome. Migraine headache without aura. Surgical History. History of bilateral tubal ligation. History of hernia repair. History of lumbar discectomy PREVIOUS FUNCTIONAL STATUS/SOCIAL/FAMILY SUPPORTS:: Alicia lives in [facility] with her s/o, and her three children. 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 She is independent at baseline. CURRENT FUNCTIONAL STATUS:: Alicia was sitting up in bed when CM met with her. She reported that she is feeling ok, but she has been very tired today, as she didn't sleep well last night. She asked for a change of clothes, which CM discussed with her RN, stating that there are paper scrubs she can wear. CM suggested that her family/friend can drop off a change of clothes, but she stated that she doesn't have anyone to drive them to her. She was pleasant and engaged in conversation. She stated that per MD, she may be able to discharge home tomorrow. CM will continue to follow. ADVANCE DIRECTIVES:: None on file. CM will offer forms. Has patient been provided with info about the portal/API?: Yes Did the patient sign up for the portal?: No CODE STATUS:: Full Code INSURANCE COVERAGE / FINANCIAL ISSUES:: [employer] CURRENT HOME/COMMUNITY SERVICES/EQUIPMENT:: No current services or equipment. PRIMARY CARE PHYSICIAN:: Freida Cristina POTENTIAL DISCHARGE NEEDS:: Evaluations for further needs, follow up appointme nts PATIENT/FAMILY EDUCATION NEEDS:: Review discharge instructions, discuss limitations and self care needs. ANTICIPATED BARRIERS TO DISCHARGE:: None identified. TRANSPORTATION:: Via private vehicle by friend vs RCT PLAN:: Anticipate Alicia will return home when medically cleared with no additional services. She will be driven home via private vehicle by a friend vs RCT. She will follow up with her PCP and discharge plan of care. CM will continue to follow.
[2021-02-28 19:48] VITALS: BP 110/71; PULSE 84; RESP 16; TEMP 36.8; O2SAT 98
[2021-02-28] MEDS: Nicotine 14 MG/24 HR PATCH TD (21:24)
[2021-03-01] MEDS: Ondansetron 4 MG/2 ML VIAL IVP ×2 (02:12→20:40)
[2021-03-01] MEDS: PIPERACILLIN/TAZO 4.5 GM in Normal Saline 100 ML IVPB ×4 (02:12→20:38)
[2021-03-01] MEDS: Ketorolac 15 MG/ML VIAL IVP ×2 (02:21→20:39)
[2021-03-01] MEDS: Normal Saline Flush 10 ML SYR IVP ×4 (02:22→20:40)
[2021-03-01 03:15] VITALS: BP 121/79; PULSE 81; RESP 18; TEMP 36.5; O2SAT 99
[2021-03-01] MEDS: POTASSIUM CHLORIDE/0.9% NACL 1,000 ML 150 MEQ IV (04:42)
--- NOTE | 2021-03-01 06:22 | NUR.NOTE ---
Patient state she vomited into the waste bin sayra lainey that she drank prior to going to the bathroom. State her stomach felt better after. Anti-emetic was administered.
[2021-03-01 07:41] LABS: Abs Immature Grans 0.59 10^3/uL (0.0-0.06); HCT 28.5 % (36.0-46.0); HGB 9.1 g/dL (11.2-15.7); MCH 27.8 pg (27.0-33.0); MCHC 31.9 % (32.0-36.0); MCV 87.2 fL (80-95); MPV 9.7 fL (8.0-11.0); Nucleated RBC 0 %; Platelet Count 342 10^3/uL (130-400); RBC 3.27 10^6/uL (3.93-5.22); RDW 13.2 % (11.7-14.6); RDW-SD 42.3 fL; WBC 10.02 10^3/uL (4.4-10.8)
[2021-03-01 07:47] LABS: Anion Gap 10.5 mmol/L (3-11); BUN 12 mg/dL (7-18); CO2 19.5 mmol/L (21.0-32.0); CREATININE 0.9 mg/dL (0.55-1.02); Calcium 7.7 mg/dL (8.5-10.1); Chloride 111 mmol/L (98-107); Glucose 92 mg/dL (74-106); Magnesium 1.9 mg/dL (1.8-2.4); Potassium 4.3 mmol/L (3.5-5.1); Sodium 141 mmol/L (136-145)
[2021-03-01 08:29] LABS: Absolute Neutrophil Count 6.01 10^3/uL (1.2-6.7); Atypical Lymphocytes % 2; Bands % 5
[2021-03-01 08:36] LABS: Diff Comment Manual Differential
[2021-03-01] MEDS: Acetaminophen 325 MG TAB 650 MG PO (10:40)
[2021-03-01 11:34] VITALS: BP 133/83; PULSE 71; RESP 18; TEMP 37.1; O2SAT 98
[2021-03-01] MEDS: MORPHine 4 MG/ML SYR IVP (13:53)
[2021-03-01] MEDS: Normal Saline 500 ML 200 ML IV (14:33)
--- NOTE | 2021-03-01 15:13 | CHAPLAIN ---
Alicia was sitting up in bed, on her phone when I visited. She said she thought she was being discharged today, but had a sharp pain so was given some pain meds and will be staying tonight. She recognized some hospital staff that she knows and said that made her more comfortable. She expects to go home tomorrow.
[2021-03-01 15:15] VITALS: BP 148/86; PULSE 88; RESP 18; TEMP 36.7; O2SAT 98
[2021-03-01] MEDS: cefTRIAXone 2 GM/50 ML BAG IVPB (15:27)
--- NOTE | 2021-03-01 15:49 | W.PM.PROGNOT ---
Date of Service Date of service: 03/01/21 Time of Service: 15:49 Assessment and Plan Assessment and plan (1) Sepsis: Status: Acute Assessment and plan: Due to pyelonephritis, present on admission. blood cultures negative to date. Continue empiric ceftriaxone. urine sample was contaminated. will try to collect sterile sample (2) Pyelonephritis: Status: Acute Assessment and plan: As above (3) SEFERINO (acute kidney injury): Status: Acute Assessment and plan: Improved with treatment of pyelonephritis and IV hydration. discontinue IVF. Low dose of toradol should be safe to introduce at this point. (4) Pain: Status: Acute Assessment and plan: As above. Add toradol to the regimen. Heat. (5) Right ovarian cyst: Status: Acute Assessment and plan: May be contributing to RLQ pain. Pain control as above. Consider SENIOR EXECUTIVE COMPENSATION ANALYST c/s if pain still significant tomorrow. (6) DVT prophylaxis: Status: Acute Assessment and plan: Not indicated in an ambulatory 40 year old female (7) Discharge planning issues: Status: Acute Assessment and plan: Full code Continues to require hospitalization. will likely discharge home tomorrow. discussed with DR Sun Subjective Subjective Patient reports: still having pain, tolerating liquids well, voiding w/o difficulty and afebrile Exam Narrative Exam Narrative: General: Pleasant female, laying in bed, tired, uncomfortable, A&Ox3 HEENT: EOMI, MMM Heart: RRR, no m/r/g Lungs: CTAB Abdomen: soft, tender in RLQ, nondistended. positive bs Extremities: no edema BLE's. Objective Last Vital Signs Temp 36.7 C 03/01/21 15:15 Pulse 88 03/01/21 15:15 Resp 18 03/01/21 15:15 BP 148/86 H 03/01/21 15:15 Pulse Ox 98 03/01/21 15:15 Laboratory Results - last 24 hr 03/01/21 03/01/21 06:47 06:47 WBC 10.02 RBC 3.27 L Hgb 9.1 L Hct 28.5 L MCV 87.2 MCH 27.8 MCHC 31.9 L RDW 13.2 Plt Count 342 MPV 9.7 Immature Gran % 0.0 Neutrophils % 55.0 Band Neutrophils % 5 Lymphocytes % 22.0 Atypical Lymphs % 2 Monocytes % 11.0 Eosinophils % 4.0 Basophils % 1.0 Nucleated RBC % 0 Absolute Neutrophils 6.01 Absolute Lymphocytes 2.40 Absolute Monocytes 1.10 H Absolute Eosinophils 0.40 Absolute Basophils 0.10 Sodium 141 Potassium 4.3 Chloride 111 H Carbon Dioxide 19.5 L Anion Gap 10.5 BUN 12 D Creatinine 0.9 D Estimated GFR/1.73 m2 >= 60.00 Glucose 92 Calcium 7.7 L Magnesium 1.9
--- NOTE | 2021-03-01 17:04 | PDOC.CMPRO ---
- If Service Date Differs Date of service: 03/01/21 Time of Service: 17:05 Care Management Progress Note S/O: Alicia was sitting up in bed when CM met with her. She reported that she is feeling better today, but has still been having a lot of pain. She reported that she doesn't understand where the pain is coming from, CM encouraged her to discuss this with her provider. She will likely be ready for discharge home tomorrow. She reported that she would feel better about remaining at [facility] until her pain is better controlled. CM will continue to follow. A: Alicia is a 40 year old female admitted to [facility] on 02/27/21 with Pyelo. P: Anticipate Alicia will return home when medically cleared with no additional services. She will be driven home via private vehicle by a friend vs RCT. She will follow up with her PCP and discharge plan of care. CM will continue to follow.
[2021-03-01 22:59] VITALS: BP 134/81; PULSE 74; RESP 18; TEMP 36.6; O2SAT 98
[2021-03-01] MEDS: Nicotine 14 MG/24 HR PATCH TD (23:46)
[2021-03-02] MEDS: PIPERACILLIN/TAZO 4.5 GM in Normal Saline 100 ML IVPB ×2 (02:16→07:29)
[2021-03-02] MEDS: Ketorolac 15 MG/ML VIAL IVP ×2 (04:04→09:52)
[2021-03-02] MEDS: Normal Saline Flush 10 ML SYR IVP ×2 (04:05→04:06)
[2021-03-02 07:09] LABS: HCT 27.6 % (36.0-46.0); HGB 8.8 g/dL (11.2-15.7); MCH 27.4 pg (27.0-33.0); MCHC 31.9 % (32.0-36.0); MPV 9.8 fL (8.0-11.0); Nucleated RBC 0 %; Platelet Count 313 10^3/uL (130-400); RBC 3.21 10^6/uL (3.93-5.22); RDW 13.6 % (11.7-14.6); RDW-SD 42.5 fL
[2021-03-02 07:20] LABS: Anion Gap 9.1 mmol/L (3-11); BUN 10 mg/dL (7-18); CO2 21.9 mmol/L (21.0-32.0); CREATININE 0.9 mg/dL (0.55-1.02); Calcium 8.2 mg/dL (8.5-10.1); Chloride 109 mmol/L (98-107); Glucose 101 mg/dL (74-106); Potassium 4.2 mmol/L (3.5-5.1); Sodium 140 mmol/L (136-145)
[2021-03-02 07:24] LABS: Bilirubin Negative (Negative); Blood Negative (Negative); Clarity Clear (Clear); Glucose Negative (Negative); Ketones Trace mg/dL (Negative); Leukocyte Esterase Negative (Negative); Nitrite Negative (Negative); Specific Gravity >= 1.030 (1.005-1.025)
[2021-03-02] MEDS: Acetaminophen 325 MG TAB 650 MG PO ×2 (07:28→13:34)
[2021-03-02 07:36] LABS: Absolute Eosinophil Count 0.09 10^3/uL (0.0-0.7); Absolute Lymphocyte Count 1.63 10^3/uL (1.2-3.4); Absolute Monocyte Count 0.34 10^3/uL (0.1-0.8); Absolute Neutrophil Count 6.36 10^3/uL (1.2-6.7); Bands % 4
[2021-03-02 07:37] LABS: Bacteria Rare HPF (Negative); C & S Indicated? No/Sq. Contamination; Casts Negative LPF (Negative); Crystals Negative HPF (Negative); Epithelial Cells Many HPF (Negative); Mucus Trace (Negative); RBC Negative HPF (0-2)
[2021-03-02 07:37] LABS: Diff Comment Manual Differential; Metamyelocytes % 2; RBC Morphology Normal
[2021-03-02 08:21] VITALS: BP 119/76; PULSE 55; RESP 17; TEMP 36.5; O2SAT 98
--- NOTE | 2021-03-02 13:40 | W.PM.DS.N ---
Date of service: 03/02/21 Time of Service: 13:40 DS: Diagnosis Discharge Diagnosis (1) Sepsis: Status: Acute (2) Pyelonephritis: Status: Acute (3) SEFERINO (acute kidney injury): Status: Acute (4) Pain: Status: Acute (5) Right ovarian cyst: Status: Acute Discharge Plan Disposition Patient Disposition: HOME Condition: Stable Discharge Details Reason For Visit: PYELO Admit Date/Time: 02/27/21 18:45 Admit Provider: Moe Spangler Attending Provider: Moe Spangler Primary Care Provider: Freida Cristina Hospital Course Hospital Course: this is a 40 year old female with history of migraine, lumbar discectomy who presented to the ED with one week history of right flank pain, nausea and fever. work up shows acute kidney injury with evidence of pyelonephritis by CT and pyuria, although urine sample not cultures d/t sq contamination. There was also a question of early appendicitis so surgery consult placed. they did not feel this was the case, but zosyn was added empirically. She was admitted to hospitalist services. blood cultures remained negative to date. her kidney function returned to normal with IV hydration. her symptoms of pain improved with the antibiotics. she had one episode of vomiting which was thought to be d/t toradol but later tolerated subsequent doses with no further vomiting. A repeat urine was still contaminated. she is tolerating PO well and safe for discharge to home. she will complete 5 days of levaquin to finish treatment of pyelonephritis. discharge discussed with DR Sun. Home Meds and New Rx's Prescriptions: New levofloxacin 750 mg tablet 750 mg PO DAILY Qty: 5 RF: 0 Bio-K plus 50 billion cell capsule,delayed release(DR/EC) 1 cap PO DAILY Qty: 14 RF: 0 Continued Mirena 20 mcg/24 hours (5 yrs) 52 mg intrauterine device 1 device IY ONCE RF: 0 Pain Contract With Pcp RF: 0 albuterol sulfate [ProAir HFA] 200 PUFF HFA aerosol inhaler 2 puff Inhalation Q6H PRN PRNQty: 1 RF: 0 rizatriptan 10 mg Tablet,Disintegrating 10 mg PO PRN PRNRF: 0 Discharge Instructions Instructions: Kidney Infection (DC) Additional Instructions: take all medication as prescribed. Stand Alone Forms: Nursing Discharge Form Referrals: Freida Cristina [Primary Care Provider] - 03/14/21 11:00 am Activity:: Activity as Tolerated Equipment/Supplies:: No Equipment Needed Diet:: As Tolerated Discharge Orders Discharge Orders: Discharge Order (Routine); Ordered 03/02/21 Ordered By: Ashley Muñoz Discharge Data Discharge Date/Time-TO BE ENTERED AT DEPARTURE: 03/02/21 15:43 DS: Summary Time Spent with Patient providing and/or coordinating discharge services: Greater than 30 minutes Status at Discharge Functional status at discharge: independent ambulation Overall status at discharge: patient is progressing back to baseline Mental Status: mental status grossly normal Speech and Movement: speech and movement normal Mood: congruent mood Affect: normal affect Exam Narrative Exam Narrative: General: Pleasant female, laying in bed, tired, uncomfortable, A&Ox3 HEENT: EOMI, MMM Heart: RRR, no m/r/g Lungs: CTAB Abdomen: soft, tender in RLQ, nondistended. positive bs Extremities: no edema BLE's. Psych Mental Status: mental status grossly normal Speech and Movement: speech and movement normal Mood: congruent mood Affect: normal affect DS: Data Vitals/I&O Vitals and I&O: Vital Signs Temperature 36.5 C 03/02/21 08:21 Temperature Source Tympanic 03/02/21 08:21 Pulse 55 L 03/02/21 08:21 Pulse Rhythm Regular 03/02/21 08:43 Pulse 87 02/27/21 19:20 Respiratory Rate 17 03/02/21 08:21 Respiratory Effort Non-Labored 03/02/21 08:43 Respiratory Depth Normal 03/02/21 08:43 Respiratory Pattern Normal 03/02/21 08:43 Blood Pressure 119/76 03/02/21 08:21 Blood Pressure Mean 86 02/27/21 19:16 Blood Pressure Position Sitting 02/27/21 16:03 Pulse Oximetry 98 03/02/21 08:21 Oxygen Delivery Method Room Air 03/02/21 08:21 Oxygen Flow Rate 0 03/02/21 08:21 Pain Level 5 03/02/21 13:34 Comment 02/27/21 20:05 Intake & Output 03/01/21 03/02/21 03/02/21 23:59 11:59 23:59 Intake Total 2160 / 3600 680 / 680 Balance 2160 / 3600 680 / 680 Intake: IV 1350 / 2550 200 / 200 Oral 810 / 1050 480 / 480 Other: Urine Color Yellow Urine Appearance Clear Clear Comment Patient reports normal voiding throughout the day. Stool Size Moderate Stool Characteristics Liquid Brown Voiding Methods Toilet Data Completed and Pending Labs on day of discharge: Labs from last 24 hours 03/02/21 03/02/21 03/02/21 06:40 06:23 06:23 WBC 8.60 RBC 3.21 L Hgb 8.8 L Hct 27.6 L MCV 86.0 MCH 27.4 MCHC 31.9 L RDW 13.6 Plt Count 313 MPV 9.8 Immature Gran % 0.0 Neutrophils % 70.0 Band Neutrophils % 4 Lymphocytes % 19.0 Monocytes % 4.0 Eosinophils % 1.0 Basophils % 0.0 Metamyelocytes % 2 Nucleated RBC % 0 Absolute Neutrophils 6.36 Absolute Lymphocytes 1.63 Absolute Monocytes 0.34 Absolute Eosinophils 0.09 Absolute Basophils 0.00 RBC Morphology Normal Sodium 140 Potassium 4.2 Chloride 109 H Carbon Dioxide 21.9 Anion Gap 9.1 BUN 10 Creatinine 0.9 Estimated GFR/1.73 m2 >= 60.00 Glucose 101 Calcium 8.2 L Urine Color Yellow Urine Clarity Clear Urine pH 6.0 Ur Specific [place] >= 1.030 H Urine Protein 30 H Urine Ketones Trace H Urine Blood Negative Urine Nitrite Negative Urine Bilirubin Negative Urine Urobilinogen 1.0 H Ur Leukocyte Esterase Negative Urine RBC Negative Urine WBC 3-5 Ur Epithelial Cells Many Urine Crystals Negative Urine Bacteria Rare Urine Casts Negative Urine Mucus Trace Ur Culture Indicated? No/sq. contamination Urine Glucose Negative Preliminary micro results at discharge 02/27/21 17:00 Blood Culture - Preliminary Blood NO GROWTH 48 HOURS 02/27/21 16:45 Blood Culture - Preliminary Blood NO GROWTH 48 HOURS [facility] Medical History (Updated 02/28/21 @ 16:42 by Millie Sun MD) Anxiety Irritable bowel syndrome Migraine headache without aura Surgical History History of bilateral tubal ligation History of hernia repair History of lumbar discectomy Social History Smoking/Tobacco Use Status: Current-Occasional Tobacco Type: cigarettes Smoking risk assessment performed?: Yes Alcohol Intake: current Alcohol Intake frequency: a few times a month Drug use: Rarely Substance use type: does not use Housing: other Details: trailer Number of Children: 3 What is your relationship status?: Panel score (0-1 are the most socially isolated patients): 0 Seatbelt use: sometimes Do you feel safe at home: Yes Do you feel safe in your relationship?: Yes
--- NOTE | 2021-03-02 15:34 | PDOC.CMDIS ---
- If Service Date Differs Date of service: 03/02/21 Time of Service: 15:34 LACE Index Scoring Tool - Questions: Length of Stay (in days): 3 Acuity (Admit via E.D.?): Yes E.D. Visits: 2 - Answers: Total Score: 8 Risk of Readmission: Low Risk Care Management Discharge Reason for Hospitalization: Pyelo Discharge Plan: Alicia returned home today with no additional services. Her friend will drive her home via private vehicle. She requested a return to work letter from the provider, which CM facilitated. She will follow up with her PCP and discharge plan of care. She is happy to be returning home. Patient/Family Education Needs: Review discharge instructions regarding activity levels and medications, discussion of self care needs including ask me three.
== END 2021-03-02 15:43 | disposition home or self-care (01) | DRG 872 ==
LOC: ER 18:42 → MS 19:57
PROVIDERS: Internal Medicine; Nurse Practitioner Acute Care; Admitting Provider General Practice; Emergency Provider Physician Assistant; PCP Physician Assistant Medical; Visit Provider General Practice
DX: A41.9 Sepsis, unspecified organism (principal); N10 Acute pyelonephritis; N17.9 Acute kidney failure, unspecified; N83.201 Unspecified ovarian cyst, right side; F17.210 Nicotine dependence, cigarettes, uncomplicated; E87.6 Hypokalemia; F41.9 Anxiety disorder, unspecified; K58.9 Irritable bowel syndrome, unspecified; G43.009 Migraine without aura, not intractable, without status migrainosus; Z20.822 Contact with and (suspected) exposure to COVID-19
CPT/HCPCS: 36415; 80048; 80053; 81025; 85027; 87040; 87635; 93005; 96361; 96365; 96375; 99222; 99232; 99233; 99239; 99252; 99291; 71046; 74176; 81003; 81015; 83605; 83735; 85025; 86140; 93010; J0131; J0696; J1885; J2270; J2405; J2543; J3010

== ENCOUNTER 2021-08-14 19:48 | Emergency (ER) | payer MEDICAID, SELFPAY ==
[2021-08-14 19:58] VITALS: BP 132/93; PULSE 92; RESP 20; TEMP 36.8; O2SAT 97
--- NOTE | 2021-08-14 20:30 | ED.GENADUL_ITS ---
Discharge Plan Disposition Patient Disposition: HOME Condition: Stable Discharge Details Clinical Impression: RLQ abdominal pain Primary Care Provider: Freida Cristina ED Provider: Linda Baldwin Home Meds and New Rx's Prescriptions: No Action Mirena 20 mcg/24 hours (5 yrs) 52 mg intrauterine device 1 device IY ONCE RF: 0 Pain Contract With Pcp RF: 0 albuterol sulfate [ProAir HFA] 200 PUFF HFA aerosol inhaler 2 puff Inhalation Q6H PRN PRNQty: 1 RF: 0 oxycodone 5 mg tablet 5 mg PO Q6H PRNQty: 14 RF: 0 Bio-K plus 50 billion cell capsule,delayed release(DR/EC) 1 cap PO DAILY Qty: 14 RF: 0 Discharge Instructions Instructions: Abdominal Pain (ED) Additional Instructions: At this time urinalysis shows no evidence for urinary tract infection. CT is unchanged from your previous visit. Please follow-up with general surgery within 1 to 2 weeks for further evaluation. Follow up with primary care provider in 3-5 days. Return to ED sooner if any worsening or concerns. Increase oral fluids. Please take Tylenol or Ibuprofen with food every 4-6 hours as needed for pain and swelling. Referrals: Freida Cristina [Primary Care Provider] - 5 days Irene Godinez MD [ [facility]YSICIAN] - 1 week (RLQ abd pain, hx of dilated appendix ) Discharge Data Discharge Date/Time-TO BE ENTERED AT DEPARTURE: 08/14/21 23:45 Medical Decision Making 41-year-old female presents to the ER with chief complaint of right lower quadrant abdominal pain which began today. She was admitted for 3 days in February for same symptoms diagnosed with UTI and a mildly dilated appendix. She does endorse diarrhea but this is at her baseline due to IBS. Denies any nausea vomiting . denies fever. Patient has a past medical history of irritable bowel syndrome, migraines, anxiety surgical history includes type ligation hernia repair and lumbar discectomy she is a daily smoker. Occasional EtOH. CT ABDOMEN PELVIS W 08/17/2020 7:07 PM FINDINGS: Liver: Normal. No mass. Gallbladder and bile ducts: Normal. No calcified stones. No ductal dilation. Pancreas: Normal. No ductal dilation. Spleen: Normal. No splenomegaly. Adrenal glands: Normal. No mass. Kidneys and ureters: Normal. No hydronephrosis. Stomach and bowel: Unremarkable. No obstruction. No mucosal thickening. Appendix: Tubular structure at base of cecum could indicate borderline dilated appendix appears unchanged since previous study but with evaluation limited due to lack oral contrast. Intraperitoneal space: Unremarkable. No free air. No significant fluid collection. Vasculature: Unremarkable. No abdominal aortic aneurysm. Lymph nodes: Unremarkable. No enlarged lymph nodes. Urinary bladder: Unremarkable as visualized. Reproductive: IUD in place. 2.5 cm left ovarian cyst. Bones/joints: Unremarkable. No acute fracture. Soft tissues: Unremarkable. IMPRESSION: 1. Tubular structure at base of cecum could indicate borderline dilated appendix appears unchanged since previous study but with evaluation limited due to lack oral contrast. 2. 2.5 cm left ovarian cyst. Thank you for allowing us to participate in the care of your patient. Dictated and Authenticated by: David Baldwin MD Urinalysis shows trace blood greater than 1 urobilinogen negative for nitrites negative for leukocytes or signs of infection. Labs ordered CBC CMP and CT abdomen pelvis rule out intra-abdominal abnormality and/or kidney stone. CT results are noted above. Use appear unchanged due to previous study. Patient has no white blood cell count no significant abnormality on her labs. Patient has remained hemodynamically stable afebrile throughout her stay. I will refer her to general surgery for further evaluation if continued abdominal pain. HPI General Mode of arrival: ambulatory . Date/Time Provider Initiated Documentation: 08/14/21 20:03 . Limitations to Documentation: no limitations . Information obtained by: patient and RN notes reviewed . HPI Narrative: 41-year-old female presents to the ER with chief complaint of right lower quadrant abdominal pain which began today. She was admitted for 3 days in February for same symptoms diagnosed with UTI and a mildly dilated appendix. She does endorse diarrhea but this is at her baseline due to IBS. Denies any nausea vomiting . denies fever. Patient has a past medical history of irritable bowel syndrome, migraines, anxiety surgical history includes type ligation hernia repair and lumbar discectomy she is a daily smoker. Occasional EtOH. Related Data Home Medications Medication Instructions Recorded Confirmed Pain Contract With Pcp 04/06/14 12/09/19 albuterol sulfate [ProAir HFA] 2 puff INHALATION Q6H PRN PRN #1 07/22/16 08/14/21 inh levonorgestrel 20 mcg/24 hours (6 1 device IY ONCE 12/09/19 08/15/21 yrs) 52 mg intrauterine device Bio-K plus 1 cap PO DAILY #14 cap 03/02/21 08/14/21 oxycodone 5 mg PO Q6H PRN #14 tab 08/15/21 Previous Rx's Medication Instructions Recorded albuterol sulfate [ProAir HFA] 2 puff INHALATION Q6H PRN PRN #1 07/22/16 inh Bio-K plus 1 cap PO DAILY #14 cap 03/02/21 oxycodone 5 mg PO Q6H PRN #14 tab 08/15/21 Allergies Allergy/AdvReac Type Severity Reaction Status Date / Time gentamicin Allergy Mild Visual Unverified 08/15/21 10:08 Disturbances ibuprofen AdvReac Nausea Unverified 08/15/21 10:08 methocarbamol [From Robaxin] AdvReac Unverified 08/15/21 10:08 strawberries Allergy Mild Uncoded 08/15/21 10:08 General Stated Complaint: GenMedical SOURAV: 3 Review of Systems All systems reviewed & are unremarkable except as noted in HPI and below Gastrointestinal Gastrointestinal: Reports as per HPI, Reports abdominal pain, Reports diarrhea (Patient reports this is chronic for her due to irritable bowel syndrome.), De nies nausea and Denies vomiting [facility] Medical History (Updated 08/15/21 @ 11:23 by KASEY Hightower) Anxiety Irritable bowel syndrome Migraine headache without aura Surgical History History of bilateral tubal ligation History of hernia repair History of lumbar discectomy Social History Smoking/Tobacco Use Status: Current-Occasional Tobacco Type: cigarettes Years smoked: 25 Smoking risk assessment performed?: Yes Alcohol Intake: current Alcohol Intake frequency: a few times a month Drug use: Rarely Substance use type: marijuana Housing: other Details: trailer Number of Children: 3 What is your relationship status?: Panel score (0-1 are the most socially isolated patients): 0 Seatbelt use: sometimes Do you feel safe at home: Yes Do you feel safe in your relationship?: Yes Exam Narrative Exam Narrative: Constitutional: Alert and oriented x3. Appears stated age. Normal body habitus. Head: Normocephalic, no trauma. Eyes: Pupils PERRLA, Red reflex noted, EOM's intact. Eyelids symmetrical without lesions, discharge, or swelling. ENT: Bilateral TM's WNL, External ear normal to inspection, no mastoid TTP, swelling, or erythema, Nasal turbinates WNL, no nasal discharge. Normal dentition, Posterior pharynx WNL, no exudate. Chest: RRR, Normal S1, S2, distal pulses intact. Resp: Lungs clear to auscultation bilaterally, no wheezes, rales, or rhonchi. Abdomen: Soft, nondistended no masses palpable. Does have some mild tenderness to the right lower quadrant with palpation. Musculoskeletal: Normal gait, 5/5 strength to all four extremities. No hip tenderness moves all 4 extremities without difficulty. Skin: No suspicious rashes or lesions. Capillary refill less than 2 sec. Neurologic: Cranial nerves II-XII intact. Alert and oriented x 3. Hematologic/Lymphatic: No ecchymosis, no lymphadenopathy. Course Vital Signs Vital signs: Vital Signs Temperature 36.8 C 08/14/21 19:58 Pulse 92 H 08/14/21 19:58 Respiratory Rate 20 08/14/21 19:58 Blood Pressure 132/93 H 08/14/21 19:58 Pulse Oximetry 97 08/14/21 19:58 Temperature 36.8 C 08/14/21 19:58 Pulse 92 H 08/14/21 19:58 Respiratory Rate 20 08/14/21 19:58 Respiratory Effort 08/14/21 20:04 Blood Pressure 132/93 H 08/14/21 19:58 Blood Pressure Position Sitting 08/14/21 19:58 Pulse Oximetry 97 08/14/21 19:58 Oxygen Delivery Method Room Air 08/14/21 19:58 Oxygen Flow Rate 0 08/14/21 19:58 Pain Level 7 08/14/21 20:09 Comment 08/14/21 19:58 Lab/Test Results Lab/Test Results: Laboratory Tests Range/Units 08/13/21 20:15 Urine Color Cancelled Urine Clarity Cancelled Urine pH Cancelled Ur Specific [place] Cancelled Urine Protein Cancelled Urine Ketones Cancelled Urine Blood Cancelled Urine Nitrite Cancelled Urine Bilirubin Cancelled Urine Urobilinogen Cancelled Ur Leukocyte Esterase Cancelled Urine Glucose Cancelled POC- Test(urine) Negative
[2021-08-14 20:36] LABS: Bilirubin Negative (Negative); Blood Trace-intact (Negative); Clarity Clear (Clear); Glucose Negative (Negative); Ketones Negative (Negative); Leukocyte Esterase Negative (Negative); Nitrite Negative (Negative); Specific Gravity >= 1.030 (1.005-1.025); pH 5.5 (5-8)
--- NOTE | 2021-08-14 20:45 | DI.CT_ITS ---
Exam(s) CT ABDOMEN PELVIS W EXAM: CT ABDOMEN PELVIS W CLINICAL HISTORY: RLQ abd pain. TECHNIQUE: Imaging Protocol: Axial computed tomography images with coronal and sagittal reformatted images were created and reviewed CONTRAST MATERIAL: Intravenous: Omnipaque 100cc Oral: None COMPARISON: CT CT RENAL COLIC WO from 02/27/2021 FINDINGS: VISUALIZED LUNG BASES: Mild increased markings in the right middle lobe. No pleural effusions. ABDOMEN: There is no ascites. LIVER: There are no focal hepatic lesions evident . GALLBLADDER/BILIARY: No obvious gallbladder pathology. CBD is not dilated. PANCREAS: No evidence of pancreatic mass nor dilatation of the pancreatic duct. SPLEEN: Spleen is not enlarged. No obvious intrasplenic lesions. Splenic and portal veins are paten t. ADRENALS: There are no significant adrenal masses. KIDNEYS:No cysts evident. No solid renal masses. There is again noted a 3 millimeter nonobstructive solitary calculus in lower pole left kidney, unchanged in size and position. No hydronephrosis. No other calculi evident. No hydroureter. No calculi evident in the nondistended urinary bladder.. ABDOMINAL AORTA: Some atherosclerosis is noted in the lower abdominal aorta. No aneurysm LYMPH NODES:There is no retroperitoneal nor paraaortic adenopathy. ABDOMINAL WALL: Fat only containing small umbilical hernia. No inguinal hernias evident. GI: There is no evidence of bowel obstruction, free air, nor abscess. PELVIS: GI: Appendix is mildly dilated, exhibiting 8 millimeter diameter. No periappendiceal streaking. No appendicular. No periappendiceal streaking. On the present study there is no air seen within the ap pendiceal lumen. LYMPH NODES: There is no intrapelvic nor inguinal adenopathy. REPRODUCTIVE: IUD is again noted in the uterine canal. Previously present cyst in the right ovary alfred s resolved. Dominant follicular cyst is now noted in left ovary, this measuring 2.2 x 2.3x 2.5 cm no free fluid. URINARY BLADDER: No calculi nor obvious masses evident OSSEOUS: No significant osseous lesions. Degenerative disc disease L4-5. IMPRESSION: 1. Mildly suspicious appendix, as described above. Surgical consultation follow-up recommended. 2. IUD in satisfactory position in the uterine cavity. Follicular ovarian cysts as described above. The largest is presently in the left ovary and measures 22 x 23 x 25 millimeters. There is no free fluid. 3. Unchanged nonobstructive solitary 3 millimeter calculus in the lower pole the left kidney. No oth er renal findings. No hydronephrosis. Urinary bladder unremarkable. First read by [facility]. My final report and recommendations were called to the ER physicia n 08/15/2021 at 9:20 a.m. RADIATION DOSE DELIVERED: 1,127.17mGy.cm Total DLP DATA REPOSITORY: All CT scans at this facility are submitted to the National Radiology Data Registry (NRDR) Dose Index Registry (DIR) with the [employer] (ACR). RADIATION OPTIMIZATION: All CT scans at this facility use at least one of these dose optimization te chniques: automated exposure control; mA and/or kV adjustment per patient size (includes targeted exa ms where dose is matched to clinical indication); or iterative reconstruction.
[2021-08-14 20:54] LABS: Bacteria Negative HPF (Negative); C & S Indicated? No; Casts Negative LPF (Negative); Crystals Negative HPF (Negative); Epithelial Cells Few HPF (Negative); Mucus Negative (Negative); Other Cells Negative (Negative); RBC 0-2 HPF (0-2); WBC 0-2 HPF (0-5)
[2021-08-14 21:21] LABS: Abs Immature Grans 0.06 10^3/uL (0.0-0.06); Absolute Basophil Count 0.05 10^3/uL (0.0-0.2); Absolute Eosinophil Count 0.19 10^3/uL (0.0-0.7); Absolute Lymphocyte Count 2.99 10^3/uL (1.2-3.4); Absolute Monocyte Count 0.79 10^3/uL (0.1-0.8); Absolute Neutrophil Count 3.59 10^3/uL (1.2-6.7); Basophils % 0.7; Eosinophils % 2.5; HCT 38.1 % (36.0-46.0); HGB 12.4 g/dL (11.2-15.7); Immature Grans % 0.8; MCH 28.4 pg (27.0-33.0); MCHC 32.5 % (32.0-36.0); MCV 87.2 fL (80-95); MPV 10.7 fL (8.0-11.0); Monocytes % 10.3; Neutrophils % 46.7; Nucleated RBC 0 %; Platelet Count 241 10^3/uL (130-400); RBC 4.37 10^6/uL (3.93-5.22); RDW 13.2 % (11.7-14.6); RDW-SD 41.4 fL; WBC 7.67 10^3/uL (4.4-10.8)
[2021-08-14 21:36] LABS: ALT 15 U/L (14-59); AST 5 U/L (15-37); Albumin 3.7 g/dL (3.4-5.0); Alkaline Phosphatase 46 U/L (46-116); Anion Gap 5.1 mmol/L (3-11); BUN 12 mg/dL (7-18); Bilirubin, Total 0.3 mg/dL (0.2-1.0); CO2 27.9 mmol/L (21.0-32.0); Calcium 8.4 mg/dL (8.5-10.1); Chloride 107 mmol/L (98-107); Glucose 96 mg/dL (74-106); Potassium 4.1 mmol/L (3.5-5.1); Sodium 140 mmol/L (136-145); Total Protein 6.8 g/dL (6.4-8.2)
[2021-08-14] MEDS: Omnipaque 350 MG/ML 100 ML BTL IJ (22:28)
[2021-08-14] MEDS: Normal Saline Flush 10 ML SYR IVP (22:36)
--- NOTE | 2021-08-14 23:17 | DI.VRAD_ITS ---
PROCEDURE INFORMATION: Exam: CT Abdomen And Pelvis With Contrast Exam date and time: 08/14/2021 8:58 PM Age: 41 years old Clinical indication: Abdominal pain; Localized; Right lower quadrant (rlq); Prior surgery; Surgery date: 6+ months; Surgery type: 2 back surgeries, hernia repair, tubal ligation; Patient HX: Rlq pain TECHNIQUE: Imaging protocol: Computed tomography of the abdomen and pelvis with contrast. Radiation optimization: All CT scans at this facility use at least one of these dose optimization techniques: automated exposure control; mA and/or kV adjustment per patient size (includes targeted exams where dose is matched to clinical indication); or iterative reconstruction. Contrast material: OMNIPAQUE 350; Contrast volume: 100 ml; Contrast route: INTRAVENOUS (IV); COMPARISON: CT ABDOMEN PELVIS W 08/17/2020 7:07 PM FINDINGS: Liver: Normal. No mass. Gallbladder and bile ducts: Normal. No calcified stones. No ductal dilation. Pancreas: Normal. No ductal dilation. Spleen: Normal. No splenomegaly. Adrenal glands: Normal. No mass. Kidneys and ureters: Normal. No hydronephrosis. Stomach and bowel: Unremarkable. No obstruction. No mucosal thickening. Appendix: Tubular structure at base of cecum could indicate borderline dilated appendix appears unchanged since previous study but with evaluation limited due to lack oral contrast. Intraperitoneal space: Unremarkable. No free air. No significant fluid collection. Vasculature: Unremarkable. No abdominal aortic aneurysm. Lymph nodes: Unremarkable. No enlarged lymph nodes. Urinary bladder: Unremarkable as visualized. Reproductive: IUD in place. 2.5 cm left ovarian cyst. Bones/joints: Unremarkable. No acute fracture. Soft tissues: Unremarkable. IMPRESSION: 1. Tubular structure at base of cecum could indicate borderline dilated appendix appears unchanged since previous study but with evaluation limited due to lack oral contrast. 2. 2.5 cm left ovarian cyst. Dictated and Authenticated by: David Baldwin MD. Ordering:MANOJ Mckeon MD
[2021-08-14 23:40] VITALS: BP 126/65; PULSE 78; RESP 16; O2SAT 97
== END 2021-08-14 23:45 | disposition home or self-care (01) ==
PROVIDERS: Emergency Provider Registered Nurse Emergency; PCP Physician Assistant Medical
DX: R10.31 Right lower quadrant pain (principal)
CPT/HCPCS: 36415; 80053; 81025; 99285; 74177; 81003; 81015; 85025; 99284; J3490

== ENCOUNTER 2021-08-15 09:59 | Day surgery (SDC) | payer MEDICAID, SELFPAY ==
[2021-08-15] VITALS (10 sets, daily range): BP systolic 115–136; BP diastolic 55–86; PULSE 65–96; RESP 13–23; TEMP 36.2–36.9; O2SAT 98–100; BMI 27.8
[2021-08-15 10:35] LABS: Abs Immature Grans 0.04 10^3/uL (0.0-0.06); Absolute Basophil Count 0.05 10^3/uL (0.0-0.2); Absolute Lymphocyte Count 2.24 10^3/uL (1.2-3.4); Absolute Monocyte Count 0.63 10^3/uL (0.1-0.8); Absolute Neutrophil Count 3.97 10^3/uL (1.2-6.7); Basophils % 0.7; Eosinophils % 2.8; HCT 41.2 % (36.0-46.0); HGB 13.2 g/dL (11.2-15.7); Immature Grans % 0.6; Lymphocytes % 31.4; MCH 28.3 pg (27.0-33.0); MCV 88.2 fL (80-95); MPV 10.5 fL (8.0-11.0); Monocytes % 8.8; Neutrophils % 55.7; Nucleated RBC 0 %; Platelet Count 254 10^3/uL (130-400); RBC 4.67 10^6/uL (3.93-5.22); RDW 13.1 % (11.7-14.6); RDW-SD 42.2 fL; WBC 7.13 10^3/uL (4.4-10.8)
[2021-08-15 10:36] LABS: Bilirubin Negative (Negative); Blood Trace-intact (Negative); Clarity Cloudy (Clear); Glucose Negative (Negative); Ketones Negative (Negative); Leukocyte Esterase Negative (Negative); Nitrite Negative (Negative); Specific Gravity 1.025 (1.005-1.025); Urobilinogen 0.2 EU/dL (Up TO 0.2); pH 6.5 (5-8)
[2021-08-15 10:38] LABS: Source Nasal/Nares
--- NOTE | 2021-08-15 10:43 | ED.GENADUL_ITS ---
Discharge Plan Disposition Patient Disposition: [facility] Condition: Good Discharge Details Chief Complaint: Abd Prob Clinical Impression: RLQ abdominal pain Attending Provider: Irene Godinze Primary Care Provider: Freida Cristina ED Provider: Hanh Amin Discharge Instructions Activity:: as above Diet:: As Tolerated Discharge Orders Discharge Orders: Discharge Order (Routine); Ordered 08/15/21 Ordered By: Irene Godinez Discharge Data Discharge Date/Time-TO BE ENTERED AT DEPARTURE: 08/15/21 14:10 Medical Decision Making Alicia Marquis is a 41 y/o woman who presented to the emergency department with RLQ for months, worse since yesterday. On exam Pt is well and non-toxic appearing. Focal RLQ TTP without peritoneal signs. Given Pt had laboratory work, CT yesterday showing abnormal appendix on re-read, discussed Pt with surgery who will see Pt. Plan for IV placement, basic labs. Labs reviewed, WBC 7.13. Surgery to take Pt to OR. Medical Records Medical records reviewed: Yes I reviewed the patient's medical records. Lab Data Lab results reviewed: Yes I reviewed the patient's lab results. HPI General Mode of arrival: ambulatory . Date/Time Provider Initiated Documentation: 08/15/21 10:06 . Limitations to Documentation: no limitations . Information obtained by: patient, RN notes reviewed and old records reviewed . HPI Narrative: Alicia Marquis is a 41-year-old woman with a history of asthma presenting to the emergency department with right lower quadrant pain. Per patient record review, patient was seen here for same yesterday, had CT abdomen pelvis showing enlarged appendix unchanged from prior CT 03/16. Patient was discharged home. I received call back from radiology this morning, on reread of CT there was concern for worsening of abnormal appendiceal finding. This finding was discussed with surgery, who recommended patient be brought back to the emergency department for reevaluation. Patient reports that she has had mild right lower quadrant pain since February 2021 when she was admitted to this hospital for pyelonephritis. Patient reports that right lower quadrant pain has been mild and not concerning for her, until yesterday morning when pain became much more sharp and severe. Patient reports that pain has been unchanged since onset yesterday morning, possibly somewhat worse. She reports that she has had decreased appetite since onset of pain. She had a couple sips of soda this morning and nothing else to eat or drink. She denies any other pain, fever, vomiting, shortness of breath, cough, numbness, weakness, rash, dysuria. Patient does report that she has chronic diarrhea that is unchanged and at baseline. Related Data Home Medications Medication Instructions Recorded Confirmed Pain Contract With Pcp 04/06/14 08/26/21 albuterol sulfate [ProAir HFA] 2 puff INHALATION Q6H PRN PRN #1 07/22/16 08/26/21 inh levonorgestrel 20 mcg/24 hours (6 1 device IY ONCE 12/09/19 08/26/21 yrs) 52 mg intrauterine device Bio-K plus 1 cap PO DAILY #14 cap 03/02/21 08/26/21 Previous Rx's Medication Instructions Recorded albuterol sulfate [ProAir HFA] 2 puff INHALATION Q6H PRN PRN #1 07/22/16 inh Bio-K plus 1 cap PO DAILY #14 cap 03/02/21 Allergies Allergy/AdvReac Type Severity Reaction Status Date / Time gentamicin Allergy Mild Visual Unverified 08/26/21 10:36 Disturbances methocarbamol [From Robaxin] AdvReac Intermediate It Unverified 08/26/21 10:36 knocked me right out ibuprofen AdvReac Nausea Unverified 08/26/21 10:36 strawberries Allergy Mild Uncoded 08/26/21 10:36 General Stated Complaint: Abd Prob SOURAV: 3 Review of Systems Narrative: Constitutional: denies fevers Eyes: denies eye pain ENT: denies ear pain, dental pain, sore throat Cardiovascular: denies chest pain Respiratory: denies SOB, cough GI: denies vomiting, reports right lower quadrant abdominal pain, chronic unchanged diarrhea : denies flank pain MSK: denies back pain, neck pain, arthralgias, myalgias Skin: denies rash Neuro: denies headaches, numbness, weakness [facility] Medical History Anxiety Irritable bowel syndrome Migraine headache without aura Neuroendocrine neoplasm of appendix Grade 1, 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 Surgical History (Updated 08/26/21 @ 10:58 by Irene Godinez MD) History of bilateral tubal ligation History of hernia repair History of lumbar discectomy S/P appendectomy (~08/15/21) Social History Smoking/Tobacco Use Status: Current-Occasional Tobacco Type: cigarettes Years smoked: 25 Smoking risk assessment performed?: Yes Alcohol Intake: current Alcohol Intake frequency: a few times a month Drug use: Rarely Substance use type: marijuana Housing: other Details: trailer Number of Children: 3 What is your relationship status?: Panel score (0-1 are the most socially isolated patients): 0 Seatbelt use: sometimes Do you feel safe at home: Yes Do you feel safe in your relationship?: Yes Exam Narrative Exam Narrative: Constitutional: well and [id number], pleasant, conversing normally HENT: head atraumatic/normocephalic/normal inspection, mucous membranes moist Eyes: conjunctiva normal, sclera normal, pupils 3mm b/l Neck: no stridor, normal ROM, trachea midline Resp: normal work of breathing, speaking full sentences Cardio: normal rate, normal rhythm GI: abdomen soft, focal right lower quadrant tenderness to palpation, no rebound, no guarding, non-distended Back: normal inspection, no rash Skin: warm, dry, normal color, no rash Neuro: alert, not altered, grossly non-focal, normal tone Ext: no edema Psych: normal mood, normal affect, normal behavior Course Vital Signs Vital signs: Vital Signs Temperature 36.9 C 08/15/21 10:05 Pulse 96 H 08/15/21 10:05 Respiratory Rate 18 08/15/21 10:05 Blood Pressure 124/78 08/15/21 10:05 Pulse Oximetry 98 08/15/21 10:05 Temperature 36.9 C 08/15/21 10:05 Temperature Source Temporal Artery Scan 08/15/21 10:05 Pulse 96 H 08/15/21 10:05 Respiratory Rate 18 08/15/21 10:05 Respiratory Effort Non-Labored 08/15/21 10:09 Blood Pressure 124/78 08/15/21 10:05 Blood Pressure Position Sitting 08/15/21 10:05 Pulse Oximetry 98 08/15/21 10:05 Oxygen Delivery Method Room Air 08/15/21 10:05 Oxygen Flow Rate 0 08/15/21 10:05 Pain Level 3 08/15/21 10:05 Lab/Test Results Lab/Test Results: Laboratory Tests Range/Units 08/15/21 08/15/21 08/15/21 10:22 10:24 10:30 WBC (4.4-10.8) 10^3/uL 7.13 RBC (3.93-5.22) 10^6/uL 4.67 Hgb (11.2-15.7) g/dL 13.2 Hct (36.0-46.0) % 41.2 MCV (80-95) fL 88.2 MCH (27.0-33.0) pg 28.3 MCHC (32.0-36.0) % 32.0 RDW (11.7-14.6) % 13.1 Plt Count (130-400) 10^3/uL 254 MPV (8.0-11.0) fL 10.5 Immature Gran % 0.6 Neutrophils % 55.7 Lymphocytes % 31.4 Monocytes % 8.8 Eosinophils % 2.8 Basophils % 0.7 Nucleated RBC % % 0 Absolute Neutrophils (1.2-6.7) 10^3/uL 3.97 Absolute Lymphocytes (1.2-3.4) 10^3/uL 2.24 Absolute Monocytes (0.1-0.8) 10^3/uL 0.63 Absolute Eosinophils (0.0-0.7) 10^3/uL 0.20 Absolute Basophils (0.0-0.2) 10^3/uL 0.05 Urine Color (Yellow) Yellow Urine Clarity (Clear) Cloudy Urine pH (5-8) 6.5 Ur Specific [place] (1.005-1.025) 1.025 Urine Protein (Negative) mg/dL Trace H Urine Ketones (Negative) mg/dL Negative Urine Blood (Negative) Trace-intact H Urine Nitrite (Negative) Negative Urine Bilirubin (Negative) Negative Urine Urobilinogen (Up TO 0.2) EU/dL 0.2 Ur Leukocyte Esterase (Negative) Negative Urine Glucose (Negative) mg/dL Negative COVID-19 Source Nasal/Nares POC- Test(urine) Negative
[2021-08-15 10:44] LABS: Anion Gap 8.2 mmol/L (3-11); BUN 10 mg/dL (7-18); CO2 27.8 mmol/L (21.0-32.0); CREATININE 0.9 mg/dL (0.55-1.02); Calcium 8.4 mg/dL (8.5-10.1); Chloride 106 mmol/L (98-107); Glucose 89 mg/dL (74-106); Potassium 3.7 mmol/L (3.5-5.1); Sodium 142 mmol/L (136-145)
[2021-08-15 10:53] LABS: Epithelial Cells Many HPF (Negative); Other Cells Negative (Negative); WBC 0-2 HPF (0-5)
[2021-08-15 10:54] LABS: Bacteria Few HPF (Negative); C & S Indicated? No; Casts Negative LPF (Negative); Crystals Negative HPF (Negative); Mucus Negative (Negative)
--- NOTE | 2021-08-15 11:15 | HPE_ITS ---
Documented by User: KASEY Hightower 08/15/21 11:27 Date of service: 08/15/21 Time of Service: 11:15 Assessment and Plan Assessment and plan (1) RLQ abdominal pain: Status: Acute Assessment and plan: A// Persistent RLQ that has been intermittent since February 2021. Suspicious findings on CT scan on 08/14. WBC nml today. Abdominal pain continues per patient. Abdominal exam was unremarkable, mildly tender RLQ with palpation. Discussed the potential risk and benefits associated with laparoscopic Appendectomy that is not limited to infection, abscess or injury to the bowel. Questions were answered to patient's satisfaction. P// Laparoscopic Appendectomy History of Present Illness History of Present Illness Chief Complaint: RLQ Pain Narrative: 41 y/o female with a history of IBS-D and pyelonephritis presented to the RE last night 08/14 with complaints of RLQ. She reports that she has intermittently had RLQ. CT scan showed suspicious appendix. WBC nml. Patient has not had anything to eat today, only sips of soda She denies nausea, vomiting, fevers, chills or night sweats. She states that her RLQ pain continues despite treatment. She denies any changes in her bowel habits, stating that she frequently has diarrhea associated with her IBS. Denies chest pain, palpitations, dyspnea or dyspnea with exertion. Denies personal or family history of adverse reactions to anesthesia. Denies any history of CO, stroke, seizures, bleeding or clotting disorders. Denies having any implanted metal. Denies any history of chemotherapy or radiation. [facility] Medical History (Updated 08/15/21 @ 11:23 by KASEY Hightower) Anxiety Irritable bowel syndrome Migraine headache without aura Surgical History History of bilateral tubal ligation History of hernia repair History of lumbar discectomy Social History Smoking/Tobacco Use Status: Current-Occasional Tobacco Type: cigarettes Years smoked: 25 Smoking risk assessment performed?: Yes Alcohol Intake: current Alcohol Intake frequency: a few times a month Drug use: Rarely Substance use type: marijuana Housing: other Details: trailer Number of Children: 3 What is your relationship status?: Panel score (0-1 are the most socially isolated patients): 0 Seatbelt use: sometimes Do you feel safe at home: Yes Do you feel safe in your relationship?: Yes Meds Allergies and Home Medications Allergies Allergy/AdvReac Type Severity Reaction Status Date / Time gentamicin Allergy Mild Visual Unverified 08/15/21 10:08 Disturbances ibuprofen AdvReac Nausea Unverified 08/15/21 10:08 methocarbamol [From Robaxin] AdvReac Unverified 08/15/21 10:08 strawberries Allergy Mild Uncoded 08/15/21 10:08 Home Medications Medication Instructions Recorded Confirmed Type Pain Contract With Pcp 04/06/14 12/09/19 History albuterol sulfate [ProAir HFA] 2 puff INHALATION Q6H PRN PRN #1 07/22/16 08/14/21 Rx inh levonorgestrel 20 mcg/24 hours (6 1 device IY ONCE 12/09/19 08/15/21 History yrs) 52 mg intrauterine device L. acidophilus,casei,rhamnosus 1 cap PO DAILY #14 cap 03/02/21 08/14/21 Rx [Bio-K plus] Exam Const General: cooperative, healthy appearing and comfortable Orientation: alert and oriented x3 Resp Effort & Inspection: normal respiratory effort, no audible wheezes and no cough Auscultation: clear to auscultation bilaterally Cardio Rate: regular rate Rhythm: regular rhythm Heart Sounds: S1 normal, S2 normal and no murmurs GI Palpation: soft, no guarding and nontender Results Labs Result diagrams: 08/15/21 10:24 08/15/21 10:24 Labs: Laboratory Results - last 24 hr 08/15/21 08/15/21 08/15/21 10:22 10:24 10:24 WBC 7.13 RBC 4.67 Hgb 13.2 Hct 41.2 MCV 88.2 MCH 28.3 MCHC 32.0 RDW 13.1 Plt Count 254 MPV 10.5 Immature Gran % 0.6 Neutrophils % 55.7 Lymphocytes % 31.4 Monocytes % 8.8 Eosinophils % 2.8 Basophils % 0.7 Nucleated RBC % 0 Absolute Neutrophils 3.97 Absolute Lymphocytes 2.24 Absolute Monocytes 0.63 Absolute Eosinophils 0.20 Absolute Basophils 0.05 Sodium 142 Potassium 3.7 Chloride 106 Carbon Dioxide 27.8 Anion Gap 8.2 BUN 10 Creatinine 0.9 Estimated GFR/1.73 m2 >= 60.00 Glucose 89 Calcium 8.4 L Urine Color Yellow Urine Clarity Cloudy Urine pH 6.5 Ur Specific [place] 1.025 Urine Protein Trace H Urine Ketones Negative Urine Blood Trace-intact H Urine Nitrite Negative Urine Bilirubin Negative Urine Urobilinogen 0.2 Ur Leukocyte Esterase Negative Urine RBC 3-5 H Urine WBC 0-2 Ur Epithelial Cells Many Urine Crystals Negative Urine Bacteria Few Urine Casts Negative Urine Mucus Negative Urine Other Negative Ur Culture Indicated? No Urine Glucose Negative COVID-19 Source 08/15/21 10:30 WBC RBC Hgb Hct MCV MCH MCHC RDW Plt Count MPV Immature Gran % Neutrophils % Lymphocytes % Monocytes % Eosinophils % Basophils % Nucleated RBC % Absolute Neutrophils Absolute Lymphocytes Absolute Monocytes Absolute Eosinophils Absolute Basophils Sodium Potassium Chloride Carbon Dioxide Anion Gap BUN Creatinine Estimated GFR/1.73 m2 Glucose Calcium Urine Color Urine Clarity Urine pH Ur Specific [place] Urine Protein Urine Ketones Urine Blood Urine Nitrite Urine Bilirubin Urine Urobilinogen Ur Leukocyte Esterase Urine RBC Urine WBC Ur Epithelial Cells Urine Crystals Urine Bacteria Urine Casts Urine Mucus Urine Other Ur Culture Indicated? Urine Glucose COVID-19 Source Nasal/Nares Last Vital Signs Temp 36.9 C 08/15/21 10:05 Pulse 96 H 08/15/21 10:05 Resp 18 08/15/21 10:05 BP 124/78 08/15/21 10:05 Pulse Ox 98 08/15/21 10:05 Documented by User: Irene Godinez MD 08/15/21 12:35 Assessment and Plan Assessment and plan (1) RLQ abdominal pain: Status: Acute Assessment and plan: 41 year old female with 2 episodes of RLQ pain. CT scan both times showed a borderline dilated appendix. NO inflammatory changes and no wbc count. Risks, benefits and complications have been reviewed. We also discussed that this may not end up being appendicitis. We discussed the risks and benefits and complications of the surgery. Complications include but are not limited to bleeding, pain, infection, injury to large and small intestine, wound dehisence, leak from the staple line, hernia, CO, stroke. Questions were entertained and answered and she wished to proceed. No guarantees were given or implied. History of Present Illness Consults Consult date: 08/15/21 Requesting physician: Hanh Amin Narrative: Mrs Marquis is a pleasant 41 year old female who was seen in the ER for RLQ pain yesterday. Labs were normal and CT scan was read by [facility] as negative. Today the ER was told that the patient may have appendicitis. She was called back in. She continues to have RLQ pain. She tells me that she had a similar episode in February of this year. Her CT scan showed a mildly dilated appendix back in February. She still has a normal WBC count. Discussed the possibility of her appendix being normal and the pain not getting better. Patient understands. Review of Systems Constitutional Constitutional: Denies fatigue, Denies fever(s), Denies headache(s) and Denies weight loss Eyes Eyes: Denies change in vision ENT Ears, Nose, Mouth, and Throat: Denies headache(s) and Denies hoarseness Cardiovascular Cardiovascular: Reports as per HPI, Denies chest pain, Denies chest pain at rest, Denies irregular heart rhythm, Denies palpitations and Denies dyspnea Respiratory Respiratory: Denies cough and Denies dyspnea Gastrointestinal Gastrointestinal: Reports as per HPI Genitourinary Genitourinary: Denies difficulty voiding and Denies dysuria Neurologic Neurologic: Denies headache(s) Endocrine Endocrine: Denies fatigue and Denies palpitations [facility] Medical History (Updated 08/15/21 @ 11:23 by KASEY Hightower) Anxiety Irritable bowel syndrome Migraine headache without aura Surgical History History of bilateral tubal ligation History of hernia repair History of lumbar discectomy Social History Smoking/Tobacco Use Status: Current-Occasional Tobacco Type: cigarettes Years smoked: 25 Smoking risk assessment performed?: Yes Alcohol Intake: current Alcohol Intake frequency: a few times a month Drug use: Rarely Substance use type: marijuana Housing: other Details: trailer Number of Children: 3 What is your relationship status?: Panel score (0-1 are the most socially isolated patients): 0 Seatbelt use: sometimes Do you feel safe at home: Yes Do you feel safe in your relationship?: Yes Meds Allergies and Home Medications Allergies Allergy/AdvReac Type Severity Reaction Status Date / Time gentamicin Allergy Mild Visual Unverified 08/15/21 10:08 Disturbances ibuprofen AdvReac Nausea Unverified 08/15/21 10:08 methocarbamol [From Robaxin] AdvReac Unverified 08/15/21 10:08 strawberries Allergy Mild Uncoded 08/15/21 10:08 Home Medications Medication Instructions Recorded Confirmed Type Pain Contract With Pcp 04/06/14 12/09/19 History albuterol sulfate [ProAir HFA] 2 puff INHALATION Q6H PRN PRN #1 07/22/16 08/14/21 Rx inh levonorgestrel 20 mcg/24 hours (6 1 device IY ONCE 12/09/19 08/15/21 History yrs) 52 mg intrauterine device L. acidophilus,casei,rhamnosus 1 cap PO DAILY #14 cap 03/02/21 08/14/21 Rx [Bio-K plus] Exam Const General: cooperative, comfortable and no acute distress Orientation: alert and oriented x3 HENMT Head: normocephalic and atraumatic Resp Effort & Inspection: normal respiratory effort Auscultation: clear to auscultation bilaterally Cardio Rate: regular rate Rhythm: regular rhythm Heart Sounds: no gallops, no murmurs and no rubs GI Inspection: normal to inspection Palpation: soft and no hepatosplenomegaly Auscultation: normal bowel sounds Results Labs Result diagrams: 08/15/21 10:24 08/15/21 10:24
--- NOTE | 2021-08-15 11:27 | W.ANESPRE ---
General Info Date of Service Date Performed: 08/15/21 Height: 6 ft Weight: 92.986 kg Body Mass Index (BMI): 27.8 Surgical Procedure: Operation Date: 08/15/21 12:10 Proposed Procedures Side Surgeon p Appendectomy Laparoscopic Irene Godinez MD Meds Allergies and Home Medications Allergies Allergy/AdvReac Type Severity Reaction Status Date / Time gentamicin Allergy Mild Visual Unverified 08/15/21 10:08 Disturbances ibuprofen AdvReac Nausea Unverified 08/15/21 10:08 methocarbamol [From Robaxin] AdvReac Unverified 08/15/21 10:08 strawberries Allergy Mild Uncoded 08/15/21 10:08 Home Medication Medication Instructions Recorded Pain Contract With Pcp 04/06/14 albuterol sulfate [ProAir HFA] 2 puff INHALATION Q6H PRN PRN #1 07/22/16 inh levonorgestrel 20 mcg/24 hours (6 1 device IY ONCE 12/09/19 yrs) 52 mg intrauterine device L. acidophilus,casei,rhamnosus 1 cap PO DAILY #14 cap 03/02/21 [Bio-K plus] Current Visit Medications: Current Medications Generic Name Dose Route Start Last Admin Trade Name Freq PRN Reason Stop Dose Admin IV Miscellaneous Supplies 1 each 08/15/21 10:15 Iv Access IV DIRECTED SUHAS Sodium Chloride 0 ml 08/15/21 10:06 Normal Saline Flush 10 Ml Syr IVP PRN PRN PFSH Active Problems Active Problems: Problem Status Onset Code SEFERINO (acute kidney injury) N17.9 Discharge planning issues Z02.9 DVT prophylaxis Z29.9 Right ovarian cyst N83.201 Pain R52 Sepsis A41.9 RLQ abdominal pain R10.31 Pyelonephritis N12 Migraine headache without aura G43.009 History of lumbar discectomy Z98.890 Medical History Medical History (Updated 08/15/21 @ 11:23 by KASEY Hightower) Anxiety Irritable bowel syndrome Migraine headache without aura Surgical History Surgical History History of bilateral tubal ligation History of hernia repair History of lumbar discectomy Tobacco Smoking/Tobacco Use Status: Current-Occasional Tobacco Type: cigarettes Smoking cigarettes per day: 10 Years smoked: 25 Alcohol Alcohol Intake: current Alcohol intake frequency: a few times a month Substance Use Substance use: Rarely Substance use type: marijuana Vital Signs and Lab Results Vital Signs Most Recent Vital Signs in EMR: Most Recent Vital Signs Temp Pulse Resp BP Pulse Ox 36.9 C 96 H 18 124/78 98 08/15/21 10:05 08/15/21 10:05 08/15/21 10:05 08/15/21 10:05 08/15/21 10:05 Point of Care Results Point of Care Results: POC- Test(urine) Negative 08/15/21 10:30 Lab Results Result Diagrams: 08/15/21 10:24 08/15/21 10:24 Blood Type / Crossmatch: No Data to Display Complete Blood Count: White Blood Count 7.13 10^3/uL (4.4-10.8) 08/15/21 10:24 08/15/21 Red Blood Count 4.67 10^6/uL (3.93-5.22) 08/15/21 10:24 08/15/21 Hemoglobin 13.2 g/dL (11.2-15.7) 08/15/21 10:24 08/15/21 Hematocrit 41.2 % (36.0-46.0) 08/15/21 10:24 08/15/21 Platelet Count 254 10^3/uL (130-400) 08/15/21 10:24 08/15/21 Complete Metabolic Panel: Sodium Level 142 mmol/L (136-145) 08/15/21 10:24 08/15/21 Potassium Level 3.7 mmol/L (3.5-5.1) 08/15/21 10:24 08/15/21 Chloride Level 106 mmol/L (98-107) 08/15/21 10:24 08/15/21 Carbon Dioxide Level 27.8 mmol/L (21.0-32.0) 08/15/21 10:24 08/15/21 Blood Urea Nitrogen 10 mg/dL (7-18) 08/15/21 10:24 08/15/21 Creatinine 0.9 mg/dL (0.55-1.02) 08/15/21 10:24 08/15/21 Estimated GFR/1.73 m2 >= 60.00 (mL/min/1.73m2) 08/15/21 10:24 08/15/21 Calcium Level 8.4 mg/dL (8.5-10.1) L 08/15/21 10:24 08/15/21 Albumin 3.7 g/dL (3.4-5.0) 08/14/21 21:10 08/14/21 Glucose Level 89 mg/dL (74-106) 08/15/21 10:24 08/15/21 Liver Function Panel: Alanine Aminotransferase (ALT/SGPT) 15 U/L (14-59) 08/14/21 21:10 08/14/21 Aspartate Amino Transf (AST/SGOT) 5 U/L (15-37) L 08/14/21 21:10 08/14/21 Coagulation Panel: No Data to Display Cardiac Panel: No Data to Display Arterial Blood Gas: No Data to Display Venous Blood Gas: No Data to Display Pancreas Panel: No Data to Display Thyroid Panel: No Data to Display Infectious Disease: Coronavirus 2019 Source Nasal/Nares 08/15/21 10:30 08/15/21 Blood Cultures: No Data to Display Toxicology Panel: No Data to Display Panel: No Data to Display Imaging and Studies Imaging and Studies EKG Summary: 02/2021: Sinus rhythm...normal P axis, V-rate 60- 99 Anesthesia Assessment and Plan Anesthesia History Personal History: No History of Anesthesia Complications Family History: No Family History of Anesthesia Complications Exercise Tolerance Exercise Tolerance: Metabolic Equivalents>4 Cardiac & Pulmonary Exam Cardiac Exam: Normal S1/S2 Heart Sounds Pulmonary Exam: Clear Bilateral Breath Sounds Airway Exam Known Difficult Airway: No Mallampati Class: 2 Mouth Opening: Normal (> 3cm) Thyromental Distance: Greater than 3 cm Neck Range of Motion: Full ROM Neck Circumference: Normal Teeth Condition: Other (denies loose, states few small chips. teeth in poor condition. ) ASA Classification ASA Score: ASA 2 Emergency Case?: No NPO Status NPO Status: NPO Clears >2 hours, Solids >8 hours Status Status: Negative HCG Anesthesia Plan Resuscitation Status: Full Code Anesthesia Technique: General Anesthesia Airway Planned: Natural Airway Monitors Used: Standard Monitors Preoperative Comments:: 41 yo female for lap appy. PMHx: asthma (albuterol - rare use), smoker (1/2 ppd), denies any major health issues. COVID test pending. Previous anesthesia Mac 3 grade 2 (x 2 cases), masked with OPA.
[2021-08-15 11:49] LABS: COVID-19 PCR Negative (Negative)
[2021-08-15] MEDS: Lactated Ringers 1,000 ML 30 ML IV (12:56)
[2021-08-15] MEDS: Bupivacaine LIPOSOME/PF 133 MG/10 ML VIAL IJ (13:20)
[2021-08-15] MEDS: Bupivacaine 0.25% Pres-Free 30 ML VIAL (13:20)
--- NOTE | 2021-08-15 13:50 | APP_PTH ---
PATIENT: Alicia Marquis LOC: [facility] U#:[id number] AGE/SX: 41/F ROOM: RE08/15/[address]: Irene Godinez MD : [id number] BED: DIS: 08/15/2021 SPEC #: [id number] RECD: 08/15/21 18:22 STATUS: MARV REQ #: [id number] GRUPO: 08/15/21 13:[address]: Irene Godinez DEPT: Surgical Specimen RECD BY: Maryan Echeverria ENTERED: 08/15/21 18:23 SP TYPE: Appendix OTHR DR: Freida Cristina Tissues: 1 - APPENDIX NOT INCIDENTAL Procedures: IMMUNOPEROXIDASE STAIN GROSS AND MICRO LEVEL 3 Comments: [id number]
--- NOTE | 2021-08-15 14:08 | ROE_ITS ---
Date of service: 08/15/21 Time of Service: 14:08 Operative Note Operative Note DATE OF PROCEDURE: 08/15/21 PRE-OP DIAGNOSIS: Acute appendicitis POST-OP DIAGNOSIS: same PROCEDURE: Laparoscopic appendectomy SURGEON: Irene Godinez CABLE MOCK UP ASSEMBLER: Barbie Smith ANESTHESIA TYPE: General LMA/ETT (Brenna Sandra CRNA) Refer to Anesthesia Record ESTIMATED BLOOD LOSS: 15 PATHOLOGY: other (appendix) COMPLICATIONS: None Patient was transported to: same day Patient's condition: stable Indications: A// Persistent RLQ that has been intermittent since February 2021. Suspicious findings on CT scan on 08/14. WBC nml today. Abdominal pain continues per patient. Abdominal exam was unremarkable, mildly tender RLQ with palpation. Discussed the potential risk and benefits associated with laparoscopic Appendectomy that is not limited to infection, abscess or injury to the bowel. Questions were answered to patient's satisfaction. P// Laparoscopic Appendectomy Findings: Normal appendix with a fibrotic tip vs mass Procedure Description: After informed consent was obtained the patient was taken to the operating room placed in the supine position, SCDs were applied as well as monitors. A timeout was done. The patient was then placed under general anesthesia and intubated without any difficulty. Next a Roberto catheter was placed in a standard surgical fashion. At this point the abdomen was prepped and draped in a sterile surgical fashion with chlorhexidine. A second timeout was done and the patient's name, date of , operation to be performed, DVT prophylaxis, antibiotic given, and fire risk was assessed. Exparel was mixed 50-50 with 0.25% Bupivocaine. The mixture was injected into the dermis just below the umbilicus. A small 5 mm incision was made with an 11 blade. The skin was grasped with penetrating towel clamps on either side of the incision and then using a Visiport a 5 mm port was placed under direct visualization into the abdomen. The abdomen was insufflated. Local anesthetic was then injected just above the pubic symphysis at midline. A small 5 mm incision was made with an 11 blade and another 5 mm port was placed under direct visualization into the abdomen. The local anesthetic was then injected in the left lower quadrant area and a 12 mm incision was made with an 11 blade. A 12 mm port was then placed under direct visualization. The patient's bed was then turned to the left and head down allowing me to sweep of the small bowel out of the right lower quadrant. The cecum was gently grasped and the appendix was identified. The appendix looked normal except for the tip. There was a mass or fibrosis of the tip. The appendix was attached to the right fallopian tube. No purulent fluid was noted. The tip of the appendix was gently dissected away from the fallopian tube using the laparoscopic LigaSure. The appendix was grasped at the neck and pulled up slightly allowing me to visualize the junction with the cecum. Using the laparoscopic LigaSure the mesoappendix was slowly transected. Using a laparoscopic straight stapler the appendix was then transected at the junction with the cecum. The appendix was placed into an Endo Catch bag and removed through the 12 mm port site. The port was placed back into the abdomen and the staple line was identified. No bleeding was noted. The transected mesentery was identified and no bleeding was noted. The 2 5 mm ports were then removed under direct visualization and no bleeding was noted from the fascia. The insufflation was stopped and the 12 mm port was removed. The 12 mm port site fascia was closed with a 0 Vicryl [id number] suture. The skin was then closed with 4-0 Vicryl. The skin was cleaned and dried and skin affix was applied. The patient was woken up, extubated and taken back to recovery room in stable condition. There were no immediate complications. Sponge, instrument and needle counts were correct at the end of the case x2.
--- NOTE | 2021-08-15 14:09 | PDOC.DSDIS_ITS ---
Discharge Plan Disposition Patient Disposition: HOME Condition: Good Discharge Details Reason For Visit: appendicitis Attending Provider: Irene Godinez Primary Care Provider: Freida Cristina Home Meds and New Rx's Prescriptions: New oxycodone 5 mg tablet 5 mg PO Q6H PRNQty: 14 RF: 0 Continued Mirena 20 mcg/24 hours (5 yrs) 52 mg intrauterine device 1 device IY ONCE RF: 0 Pain Contract With Pcp RF: 0 albuterol sulfate [ProAir HFA] 200 PUFF HFA aerosol inhaler 2 puff Inhalation Q6H PRN PRNQty: 1 RF: 0 Bio-K plus 50 billion cell capsule,delayed release(DR/EC) 1 cap PO DAILY Qty: 14 RF: 0 Discharge Instructions Instructions: Laparoscopic Appendectomy (DC) Additional Instructions: Activity at Home after surgery: 1. Make sure you walk outside at least 4 times per day 2. You should be able to climb a flight of stairs 3. No driving while in pain or taking pain medications 4. No strenuous activity or heavy lifting for 2 weeks (laparoscopic surgery) or 4 weeks (open surgery) Diet, Nutrition, & wound healin. Avoid alcohol until after you are recovered from your surgery 2. Make sure to eat plenty of lean protein (meat, fish, eggs, cottage cheese, beans) 3. Eat a variety of fruits and vegetables. Eat plenty of high fiber foods to avoid constipation. 4. Drink plenty of liquids to stay hydrated and avoid constipation Pain Medications: 1. Tylenol 650mg every 6 hours as needed 2. If a narcotic has been prescribed take as directed only for breakthrough pain For Constipation: 1. Take Milk of Magnesia or MiraLax as needed for constipation Other: 1. You may shower daily. Do not scrub the incisions 2. Do not soak the incisions for 1 week 3. You may alternate ice and heat as needed for pain and swelling Wound Care: 1. Keep the incisions clean and dry Please call our office if you develop: 1. Fevers >101.5 2. Nausea or Vomiting 3. Worsening pain 4. Redness and thick discharge from the wounds If after hours please call the Hospital at and ask to speak to the on-call surgeon Stand Alone Forms: Anesthesia Discharge Inst. Referrals: Barbie Smith PA [[facility] [employer] [facility]] - 08/19/21 1:30 pm Activity:: as above Diet:: As Tolerated Discharge Orders Discharge Orders: Discharge Order (Routine); Ordered 08/15/21 Ordered By: Irene Godinez DS: Diagnosis Discharge Diagnosis (1) RLQ abdominal pain: Status: Acute
[2021-08-15] MEDS: fentaNYL 100 MCG/2 ML VIAL IVP ×2 (14:18→14:47)
[2021-08-15] MEDS: Normal Saline Flush 10 ML SYR IVP (14:21)
[2021-08-15] MEDS: Ketorolac 15 MG/ML VIAL IVP (14:25)
[2021-08-15] MEDS: oxyCODONE 5 MG TAB PO (15:44)
--- NOTE | 2021-08-16 13:16 | W.ANESPOSTOP ---
Postoperative Evaluation Date, Time and Location Date Performed: 08/15/21 Time Performed: 15:45 Patient Location: Day Surgery Unit Vital Signs Most Recent Imported Vital Signs: Most Recent Vital Signs Temp Pulse Resp BP Pulse Ox 36.5 C 73 16 120/55 L 100 08/15/21 15:39 08/15/21 15:39 08/15/21 15:39 08/15/21 15:39 08/15/21 15:39 Pain Score Most Recent Pain Score: Most Recent Pain Score Pain Level 4 08/15/21 15:39 Assessment Mental Status: Awake (Alert & Oriented to Patient Baseline) Airway and Respiratory Function: Patent airway with normal (patient baseline) respiratory exam Cardiovascular Function: Hemodynamically Stable Hydration Status: Adequately Hydrated Nausea & Vomiting: No Nausea or Vomiting Pain: Pain is tolerable per patient Peripheral Nerve Block: Patient did not receive a nerve block
== END 2021-08-15 15:45 | disposition home or self-care (01) ==
LOC: ER 11:03 → SUR 12:33
PROVIDERS: Emergency Provider Student in an Organized Health Care Education/Training Program; PCP Physician Assistant Medical; Visit Provider Surgery
PROC: 0DTJ4ZZ Resection of Appendix, Percutaneous Endoscopic Approach (ICD-10-PCS; CPT 44970; principal; 2021-08-15 12:00)
DX: K35.890 Other acute appendicitis without perforation or gangrene (principal); K58.0 Irritable bowel syndrome with diarrhea
CPT/HCPCS: 44970; 36415; 80048; 81025; 87635; 99285; 81003; 81015; 85025; 88304; 88361; 99284; J1100; J1885; J2001; J2405; J2704; J3010

== ENCOUNTER 2022-04-11 08:50 | Emergency (ER) | payer MEDICAID, SELFPAY ==
[2022-04-11 09:09] VITALS: BP 129/70; PULSE 107; RESP 18; TEMP 37.3; O2SAT 97
--- NOTE | 2022-04-11 09:30 | DI.CT_ITS ---
Exam(s) CT RENAL COLIC WO EXAM: CT RENAL COLIC WO CLINICAL HISTORY: back pain, h/o pyelonephritis. TECHNIQUE: Imaging Protocol: Axial computed tomography images with coronal and sagittal reformatted images were created and reviewed CONTRAST MATERIAL: Intravenous: none Oral: None COMPARISON: CT CT ABDOMEN PELVIS W from 08/14/2021 FINDINGS: VISUALIZED LUNG BASES: No nodules nor pleural effusions evident. Minimal benign-appearing increased markings noted in the posterior basal segment of the right lower lobe. ABDOMEN: There is no ascites. LIVER: There are no obvious focal hepatic lesions evident of this noninfused study. GALLBLADDER/BILIARY: No obvious gallbladder pathology. CBD is not dilated. PANCREAS: No evidence of pancreatic mass nor dilatation of the pancreatic duct. SPLEEN: Spleen is not enlarged. No obvious intrasplenic lesions. ADRENALS: There are no significant adrenal masses. KIDNEYS:Right kidney appears unremarkable. There is a nonobstructive calculus in lower pole the left kidney noted, unchanged in size and position, measuring 3 millimeters. There is no hydronephrosis n or hydroureter. No calculi in the urinary bladder.. ABDOMINAL AORTA: Abdominal aorta is not enlarged. LYMPH NODES: There is no retroperitoneal nor paraaortic adenopathy. ABDOMINAL WALL: No evidence of significant anterior abdominal wall nor inguinal hernia. GI: There is no evidence of bowel obstruction, free air, nor abscess. PELVIS: LYMPH NODES: There is no intrapelvic nor inguinal adenopathy. GI: The appendix is surgically absent.No evidence of sigmoid diverticulitis. URINARY BLADDER: No calculi nor obvious masses evident REPRODUCTIVE: Again noted is an IUD in the endometrial canal in satisfactory position, unchanged. Th ere are no abnormal adnexal masses and no free fluid in the pelvis. OSSEOUS: No significant osseous lesions. Sacroiliac joints appear unremarkable. Some disc space narrowing at L4-5 level is noted, unchanged. IMPRESSION: 1. Compared to the prior CT scan of July 2021 there is again noted a solitary 3 millimeter nonob structive calculus in lower pole calyx of the left kidney, unchanged in size and position. There are no obstructing calculi in the urinary tracts at this time and no calculi seen in the nondistended ur inary bladder. 2. An IUD is again noted in the endometrial canal. No abnormal adnexal masses. No free fluid. 3. No new significant osseous findings. RADIATION DOSE DELIVERED: 1,029.76mGy.cm Total DLP DATA REPOSITORY: All CT scans at this facility are submitted to the National Radiology Data Registry (NRDR) Dose Index Registry (DIR) with the [employer] ([employer]). RADIATION OPTIMIZATION: All CT scans at this facility use at least one of these dose optimization te chniques: automated exposure control; mA and/or kV adjustment per patient size (includes targeted exa ms where dose is matched to clinical indication); or iterative reconstruction.
[2022-04-11 09:35] LABS: Bilirubin Small (Negative); Blood Negative (Negative); Clarity Cloudy (Clear); Glucose Negative (Negative); Ketones 40 mg/dL (Negative); Leukocyte Esterase Negative (Negative); Nitrite Negative (Negative); Specific Gravity >= 1.030 (1.005-1.025)
--- NOTE | 2022-04-11 09:37 | ED.GENADUL_ITS ---
Discharge Plan Disposition Patient Disposition: HOME Condition: Stable Discharge Details Clinical Impression: COVID-19 Primary Care Provider: Freida Cristina ED Provider: Apurva Bowen Home Meds and New Rx's Prescriptions: New ondansetron 4 mg tablet,disintegrating 4 mg PO TID PRN (Reason: nausea and vomiting) Qty: 6 0RF Continued Mirena 20 mcg/24 hours (5 yrs) 52 mg intrauterine device 1 device IY ONCE Pain Contract With Pcp Label Comments: 04/06/14 pt states she has a pain contract with her pcp Mp rn albuterol sulfate [ProAir HFA] 200 PUFF HFA aerosol inhaler 2 puff Inhalation Q6H PRN PRNQty: 1 0RF Label Comments: not taking melatonin 10 mg Tablet, Sublingual 20 mg PO HS PRN rizatriptan 10 mg tablet,disintegrating 1 tab PO DIRECTED Label Comments: PLACE 1 TABLET ON THE TONGUE AT ONSET OF HEADACHE, MAY REPEAT IN 2 HOURS, MAX OF 2 TABLETS IN 24 HOURS Discharge Instructions Instructions: COVID-19 (Coronavirus Disease 2019) (ED) Additional Instructions: Your lab work today revealed that you are positive for COVID-19. The remainder of your lab work and imaging is reassuring and shows no evidence of acute concerning or significant findings. Drink plenty of fluids and get plenty of rest. Take Tylenol as needed and directed for pain. Take the antiviral medication Paxlovid as directed until finished. A prescription for the antinausea medication Zofran has been sent electronically to your pharmacy to take as needed and directed for nausea and vomiting. Follow-up with your primary care doctor in 1 week. Return to the emergency department with any worsening or new concerning symptoms. Stand Alone Forms: Work Release Discharge Data Discharge Physician: Apurva Bowen Medical Decision Making 0915 -- 42-year-old female with a history of pyelonephritis, anxiety, irritable bowel syndrome, asthma, L4-5 discectomy, tubal ligation presents for a few days of fever, low back pain, vomiting with diarrhea today. Heart rate low 100s. Patient appears generally fatigued but nontoxic. Abdomen soft and nontender. Right CVA tenderness. Differential diagnosis includes UTI, pyelonephritis, COVID, influenza, viral syndrome. We will place an IV, bolus IV fluids, screening labs, urinalysis, CT renal colic and give IV Toradol and Zofran. Patient states she has tolerated Toradol in the past without any side effects or allergy. 1200 --labs and imaging reviewed. COVID PCR positive. Urinalysis notes ketones, 3-5 WBCs with negative leukocyte esterase, negative nitrite with moderate bacteria and epithelial cells but appears contaminated. As she has no urinary symptoms with a positive COVID, will hold on obtaining repeat urine sample. CT negative for acute findings. Patient reassessed and she feels better and feels comfortable going home. Discussed with pharmacy and if patient's BMI is greater than 25 and she received only J&J vaccine without a booster, she qualifies for Paxlovid which was renally adjusted. Patient was given Paxlovid prescription from the pharmacy. Prescription for Zofran sent electronically to her pharmacy. Advised to follow up with the primary care doctor for re-evaluation. Usual and customary return precautions given prior to discharge. Medical Records Medical records reviewed: Yes I reviewed the patient's medical records. Imaging Data Radiologic Study: Radiologist's impression: CT RENAL COLIC WO CLINICAL HISTORY: ? back pain, h/o pyelonephritis. ? TECHNIQUE:? Imaging Protocol: Axial computed tomography images with coronal and sagittal reformatted images were created and reviewed CONTRAST MATERIAL:? Intravenous: none Oral: None COMPARISON:? CT CT ABDOMEN ? PELVIS W from 08/14/2021 FINDINGS: VISUALIZED LUNG BASES: No nodules nor pleural effusions evident.? Minimal benign-appearing increased markings noted in the posterior basal segment of the right lower lobe. ABDOMEN: There is no ascites. LIVER: There are no obvious focal hepatic lesions evident of this noninfused study.? GALLBLADDER/BILIARY: No obvious gallbladder pathology.? CBD is not dilated. PANCREAS: No evidence of pancreatic mass nor dilatation of the pancreatic duct.? SPLEEN: Spleen is not enlarged.? No obvious intrasplenic lesions.? ADRENALS: There are no significant adrenal masses. KIDNEYS:Right kidney appears unremarkable.? There is a nonobstructive calculus in lower pole the left kidney noted, unchanged in size and position, measuring 3 millimeters.? There is no hydronephrosis nor hydroureter.? No calculi in the urinary bladder.. ABDOMINAL AORTA: Abdominal aorta is not enlarged. LYMPH NODES: There is no retroperitoneal nor paraaortic adenopathy. ABDOMINAL WALL: No evidence of significant anterior abdominal wall nor inguinal hernia. GI: There is no evidence of bowel obstruction, free air, nor abscess. PELVIS:? LYMPH NODES: There is no intrapelvic nor inguinal adenopathy. GI: The appendix is surgically absent.No evidence of sigmoid diverticulitis. URINARY BLADDER: No calculi nor obvious masses evident REPRODUCTIVE: Again noted is an IUD in the endometrial canal in satisfactory position, unchanged.? There are no abnormal adnexal masses and no free fluid in the pelvis. OSSEOUS: No significant osseous lesions. Sacroiliac joints appear unremarkable.? Some disc space narrowing at L4-5 level is noted, unchanged. IMPRESSION: 1. Compared to the prior CT scan of July 2021 there is again noted a solitary 3 millimeter nonobstructive calculus in lower pole calyx of the left kidney, unchanged in size and position.? There are no obstructing calculi in the urinary tracts at this time and no calculi seen in the nondistended urinary bladder. 2. An IUD is again noted in the endometrial canal.? No abnormal adnexal masses.? No free fluid. 3. No new significant osseous findings. Lab Data Lab results reviewed: Yes I reviewed the patient's lab results. Labs: Laboratory Tests Range/Units 04/11/22 04/11/22 04/11/22 09:21 10:18 10:30 WBC (4.4-10.8) 10^3/uL RBC (3.93-5.22) 10^6/uL Hgb (11.2-15.7) g/dL Hct (36.0-46.0) % MCV (80-95) fL MCH (27.0-33.0) pg MCHC (32.0-36.0) % RDW (11.7-14.6) % Plt Count (130-400) 10^3/uL MPV (8.0-11.0) fL Immature Gran % Neutrophils % Lymphocytes % Monocytes % Eosinophils % Basophils % Nucleated RBC % (0.0-0.3) % Absolute Neutrophils (1.2-6.7) 10^3/uL Absolute Lymphocytes (1.2-3.4) 10^3/uL Absolute Monocytes (0.1-0.8) 10^3/uL Absolute Eosinophils (0.0-0.7) 10^3/uL Absolute Basophils (0.0-0.2) 10^3/uL Sodium (136-145) mmol/L 136 Potassium (3.5-5.1) mmol/L 3.4 L Chloride (98-107) mmol/L 103 Carbon Dioxide (21.0-32.0) mmol/L 25.6 Anion Gap (3-11) mmol/L 7.4 BUN (7-18) mg/dL 12 Creatinine (0.55-1.02) mg/dL 1.1 H Estimated GFR/1.73 m2 (mL/min/1.73m2) 54.74 Glucose (74-106) mg/dL 98 Calcium (8.5-10.1) mg/dL 8.1 L Total Bilirubin (0.2-1.0) mg/dL 0.3 AST (15-37) U/L 20 ALT (14-59) U/L 20 Alkaline Phosphatase (46-116) U/L 54 Total Protein (6.4-8.2) g/dL 7.2 Albumin (3.4-5.0) g/dL 3.8 Lipase (73-393) U/L 58 Urine Color (Yellow) Yellow Urine Clarity (Clear) Cloudy Urine pH (5-8) 6.0 Ur Specific [place] (1.005-1.025) >= 1.030 H Urine Protein (Negative) mg/dL 100 H Urine Ketones (Negative) mg/dL 40 H Urine Blood (Negative) Negative Urine Nitrite (Negative) Negative Urine Bilirubin (Negative) Small H Urine Urobilinogen (Up TO 0.2) EU/dL 1.0 H Ur Leukocyte Esterase (Negative) Negative Urine RBC (0-2) HPF Negative Urine WBC (0-5) HPF 3-5 Ur Epithelial Cells (Negative) HPF Moderate Urine Crystals (Negative) HPF Negative Urine Bacteria (Negative) HPF Moderate Urine Casts (Negative) LPF Negative Urine Mucus (Negative) Heavy Urine Other (Negative) Few Renal Ur Culture Indicated? No/Sq. Contamination Urine Glucose (Negative) mg/dL Negative COVID-19 Source Nasopharynx SARS-CoV-2 (PCR) (Negative) Positive A Influenza Type A (PCR) (Negative) Negative Influenza Type B (PCR) (Negative) Negative RSV (PCR) (Negative) Negative Range/Units 04/11/22 10:30 WBC (4.4-10.8) 10^3/uL 3.12 L RBC (3.93-5.22) 10^6/uL 4.80 Hgb (11.2-15.7) g/dL 13.1 Hct (36.0-46.0) % 41.3 MCV (80-95) fL 86 MCH (27.0-33.0) pg 27.3 MCHC (32.0-36.0) % 31.7 L RDW (11.7-14.6) % 13.0 Plt Count (130-400) 10^3/uL 150 MPV (8.0-11.0) fL 11.6 H Immature Gran % 1.0 Neutrophils % 55.8 Lymphocytes % 26.6 Monocytes % 16.3 Eosinophils % 0.0 Basophils % 0.3 Nucleated RBC % (0.0-0.3) % 0.0 Absolute Neutrophils (1.2-6.7) 10^3/uL 1.74 Absolute Lymphocytes (1.2-3.4) 10^3/uL 0.83 L Absolute Monocytes (0.1-0.8) 10^3/uL 0.51 Absolute Eosinophils (0.0-0.7) 10^3/uL 0.00 Absolute Basophils (0.0-0.2) 10^3/uL 0.01 Sodium (136-145) mmol/L Potassium (3.5-5.1) mmol/L Chloride (98-107) mmol/L Carbon Dioxide (21.0-32.0) mmol/L Anion Gap (3-11) mmol/L BUN (7-18) mg/dL Creatinine (0.55-1.02) mg/dL Estimated GFR/1.73 m2 (mL/min/1.73m2) Glucose (74-106) mg/dL Calcium (8.5-10.1) mg/dL Total Bilirubin (0.2-1.0) mg/dL AST (15-37) U/L ALT (14-59) U/L Alkaline Phosphatase (46-116) U/L Total Protein (6.4-8.2) g/dL Albumin (3.4-5.0) g/dL Lipase (73-393) U/L Urine Color (Yellow) Urine Clarity (Clear) Urine pH (5-8) Ur Specific [place] (1.005-1.025) Urine Protein (Negative) mg/dL Urine Ketones (Negative) mg/dL Urine Blood (Negative) Urine Nitrite (Negative) Urine Bilirubin (Negative) Urine Urobilinogen (Up TO 0.2) EU/dL Ur Leukocyte Esterase (Negative) Urine RBC (0-2) HPF Urine WBC (0-5) HPF Ur Epithelial Cells (Negative) HPF Urine Crystals (Negative) HPF Urine Bacteria (Negative) HPF Urine Casts (Negative) LPF Urine Mucus (Negative) Urine Other (Negative) Ur Culture Indicated? Urine Glucose (Negative) mg/dL COVID-19 Source SARS-CoV-2 (PCR) (Negative) Influenza Type A (PCR) (Negative) Influenza Type B (PCR) (Negative) RSV (PCR) (Negative) HPI General Mode of arrival: ambulatory . Date/Time Provider Initiated Documentation: 04/11/22 08:51 . Limitations to Documentation: no limitations . Information obtained by: patient . HPI Narrative: Patient is a 42-year-old female with a history of urosepsis presents with fever, T-max 102 and lower back pain the past 3 days, vomiting since yesterday and diarrhea today. Patient states she last took Tylenol at 7:00 this morning. She states her back pain is mainly lower and aching. She states she has been mainly vomiting clear. She states her diarrhea this morning was mainly watery and brown. She admits to a chronic smoker's cough but states this is no worse than usual. She does admit to left ear pain. She denies sore throat, chest pain, shortness of breath, abdominal pain or urinary symptoms. She states she usually does not have urinary symptoms with her urinary tract infection. She states she received the J&J vaccine for COVID but has not received a booster. Related Data Home Medications Medication Instructions Recorded Confirmed Pain Contract With Pcp 04/06/14 08/26/21 albuterol sulfate 90 mcg/actuation 2 puff inhalation Q6H PRN PRN #1 07/22/16 04/11/22 aerosol inhaler (ProAir HFA) inh levonorgestrel 20 mcg/24 hours (7 1 device intrauterine ONCE 12/09/19 04/11/22 yrs) 52 mg intrauterine device (Mirena) melatonin 10 mg sublingual tablet 20 mg PO HS PRN 04/11/22 04/11/22 ondansetron 4 mg disintegrating 4 mg PO TID PRN nausea and 04/11/22 tablet vomiting #6 tabs rizatriptan 10 mg disintegrating 1 tab PO DIRECTED 04/11/22 04/11/22 tablet Previous Rx's Medication Instructions Recorded albuterol sulfate 90 mcg/actuation 2 puff inhalation Q6H PRN PRN #1 07/22/16 aerosol inhaler (ProAir HFA) inh ondansetron 4 mg disintegrating 4 mg PO TID PRN nausea and 04/11/22 tablet vomiting #6 tabs Allergies Allergy/AdvReac Type Severity Reaction Status Date / Time gentamicin Allergy Mild Visual Unverified 04/11/22 09:16 Disturbances methocarbamol [From Robaxin] AdvReac Intermediate It Unverified 04/11/22 09:16 knocked me right out ibuprofen AdvReac Nausea Unverified 04/11/22 09:16 strawberries Allergy Mild Uncoded 04/11/22 09:16 General Stated Complaint: GenMedical SOURAV: 3 Review of Systems All systems reviewed & are unremarkable except as noted in HPI and below Constitutional Constitutional: Reports chills, Denies excessive sweating, Denies fatigue, Reports fever(s), Denies weakness and Denies weight loss Eyes Eyes: Reports system reviewed and no additional complaints, except as documented and Denies blurry vision ENT Ears, Nose, Mouth, and Throat: Denies vertigo, Denies dizziness, Denies otalgia, Denies nasal congestion, Denies sore throat and Denies throat swelling Cardiovascular Cardiovascular: Denies chest pain, Denies syncope, Denies rapid heart rate and Denies dyspnea Respiratory Respiratory: Denies chest congestion, Denies cough, Denies pain on inspiration and Denies dyspnea Gastrointestinal Gastrointestinal: Denies abdominal pain, Reports diarrhea and Reports vomiting Genitourinary Genitourinary: Denies hematuria, Denies dysuria and Denies flank pain Musculoskeletal Musculoskeletal: Reports back pain and Denies joint swelling Integumentary/Breasts Skin/Breast: Denies lesions and Denies rash Neurologic Neurologic: Denies behavioral changes, Denies confusion, Denies vertigo, Denies dizziness, Denies syncope, Denies localized weakness and Denies weakness Psychiatric Psychiatric: Denies behavioral changes, Denies confusion and Denies depression Endocrine Endocrine: Denies excessive sweating and Denies fatigue Hematologic/Lymphatic Hematologic/Lymphatic: Denies easy bruising and Denies lymphadenopathy Allergic/Immunologic Allergic/Immunologic: Denies throat swelling PFSH All Active Problems (Updated 08/26/21 @ 10:58 by Irene Godinez MD) COVID-19 (Acute) RLQ abdominal pain (Acute) SEFERINO (acute kidney injury) (Acute) Discharge planning issues (Acute) DVT prophylaxis (Acute) Right ovarian cyst (Acute) Pain (Acute) Sepsis (Acute) RLQ abdominal pain (Acute) Pyelonephritis (Acute) Migraine headache without aura (Acute) History of lumbar discectomy (Acute) Medical History Anxiety Irritable bowel syndrome Migraine headache without aura Neuroendocrine neoplasm of appendix Grade 1, 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 Surgical History (Updated 08/26/21 @ 10:58 by Irene Godinez MD) History of bilateral tubal ligation History of hernia repair S/P appendectomy (~08/15/21) Social History Smoking/Tobacco Use Status: Current-Occasional Tobacco Type: cigarettes Years smoked: 25 Smoking risk assessment performed?: Yes Alcohol Intake: current Alcohol Intake frequency: a few times a month Drug use: Rarely Substance use type: marijuana Housing: other Details: trailer Number of Children: 3 What is your relationship status?: Panel score (0-1 are the most socially isolated patients): 0 Seatbelt use: sometimes Do you feel safe at home: Yes Do you feel safe in your relationship?: Yes Exam Const General: cooperative and healthy appearing Orientation: alert and awake [facility] Head: normal to inspection Ears: hearing grossly normal bilaterally, external ears normal and TM's normal bilaterally General nose exam: external nose normal Face and sinus: normal facial exam Mouth: oral mucosae normal Teeth and gingiva: dentition normal Throat: posterior oropharynx normal Eyes General: appearance normal, both eyes and all related structures Eyelids: eyelids normal Pupils: PERRL EOM: EOM intact bilaterally Neck Neck: normal visual inspection Lymphatic: no lymphadenopathy noted Chest Chest: normal inspection of the chest Resp Effort & Inspection: normal respiratory effort and able to speak in complete sentences Auscultation: clear to auscultation bilaterally Cardio Rate: regular rate Rhythm: regular rhythm GI Inspection: normal to inspection Palpation: soft, not firm, no guarding, no hepatosplenomegaly, no masses and nontender Auscultation: normal bowel sounds Back/Spine/Pelvis Back: CVA tenderness (R side) Skin General skin exam: no rashes or lesions noted Neuro General: patient alert and patient awake Cognition: normal cognition Speech: speech normal Gait: normal gait Motor: muscle tone normal throughout Sensory Exam: no sensory deficits noted Extrem General: normal to inspection, full ROM, capillary refill normal and no edema Psych Appearance: grossly normal Mental Status: mental status grossly normal Speech and Movement: speech and movement normal Affect: normal affect Thought Process: normal Course Vital Signs Vital signs: Vital Signs Temperature 99.1 F 04/11/22 09:09 Pulse 107 H 04/11/22 09:09 Respiratory Rate 18 04/11/22 09:09 Blood Pressure 129/70 04/11/22 09:09 Pulse Oximetry 97 04/11/22 09:09 Temperature 99.1 F 04/11/22 09:09 Temperature Source Temporal Artery Scan 04/11/22 09:09 Pulse 107 H 04/11/22 09:09 Respiratory Rate 18 04/11/22 09:09 Respiratory Effort Non-Labored 04/11/22 09:15 Blood Pressure 129/70 04/11/22 09:09 Blood Pressure Position Sitting 04/11/22 09:09 Pulse Oximetry 97 04/11/22 09:09 Oxygen Delivery Method Room Air 04/11/22 09:09 Oxygen Flow Rate 0 04/11/22 09:09 Pain Level 5 04/11/22 09:09 Lab/Test Results Lab/Test Results: POC- Test(urine) Negative PAWSS Have you Been Recently Intoxicated or Drunk Within the Last 30 days?: No Have you Ever Experienced Previous Episodes of Alcohol Withdrawal?: No Have you ever Experienced Withdrawal Seizures?: No Have you ever Experienced Delirium Tremens(DT)s?: No Have you ever undergone Alcohol Rehabilitation Treatment (i.e, inpt ot outpatient treatment programs)?: No Have you ever Experienced Blackouts?: No Have you ever Combined Alcohol with other Downers within the last 90 days?: No Have you ever Combined Alcohol with any other Substance of Abuse during the last 90 days?: No Positive Blood Alcohol level on Presentation? [PCS.BAL]: No Evidence of Increased Autonomic Activity (i.e. HR>120, tremor, sweating, agitation, nausea)?: No Result: 0
[2022-04-11 09:42] LABS: Bacteria Moderate HPF (Negative); C & S Indicated? No/Sq. Contamination; Casts Negative LPF (Negative); Crystals Negative HPF (Negative); Epithelial Cells Moderate HPF (Negative); Mucus Heavy (Negative); Other Cells Few Renal (Negative); RBC Negative HPF (0-2)
[2022-04-11] MEDS: Normal Saline 1,000 ML 1000 ML IV (10:35)
[2022-04-11] MEDS: Ketorolac 30 MG/ML VIAL IVP (10:35)
[2022-04-11] MEDS: Normal Saline Flush 10 ML SYR IVP (10:36)
[2022-04-11] MEDS: Ondansetron 4 MG/2 ML VIAL IVP (10:36)
[2022-04-11 10:45] LABS: Abs Immature Grans 0.03 10^3/uL (0.0-0.06); Absolute Basophil Count 0.01 10^3/uL (0.0-0.2); Absolute Lymphocyte Count 0.83 10^3/uL (1.2-3.4); Absolute Monocyte Count 0.51 10^3/uL (0.1-0.8); Absolute Neutrophil Count 1.74 10^3/uL (1.2-6.7); Basophils % 0.3; HCT 41.3 % (36.0-46.0); HGB 13.1 g/dL (11.2-15.7); Lymphocytes % 26.6; MCH 27.3 pg (27.0-33.0); MCHC 31.7 % (32.0-36.0); MCV 86 fL (80-95); MPV 11.6 fL (8.0-11.0); Monocytes % 16.3; Neutrophils % 55.8; Platelet Count 150 10^3/uL (130-400); RDW-SD 40.5 fL; WBC 3.12 10^3/uL (4.4-10.8)
[2022-04-11 11:04] LABS: ALT 20 U/L (14-59); AST 20 U/L (15-37); Albumin 3.8 g/dL (3.4-5.0); Alkaline Phosphatase 54 U/L (46-116); Anion Gap 7.4 mmol/L (3-11); BUN 12 mg/dL (7-18); Bilirubin, Total 0.3 mg/dL (0.2-1.0); CO2 25.6 mmol/L (21.0-32.0); CREATININE 1.1 mg/dL (0.55-1.02); Calcium 8.1 mg/dL (8.5-10.1); Chloride 103 mmol/L (98-107); Estimated GFR 54.74 (mL/min/1.73m2); Glucose 98 mg/dL (74-106); Lipase 58 U/L (73-393); Potassium 3.4 mmol/L (3.5-5.1); Sodium 136 mmol/L (136-145); Total Protein 7.2 g/dL (6.4-8.2)
[2022-04-11 11:05] LABS: Influenza A PCR Negative (Negative); Influenza B PCR Negative (Negative); RSV PCR Negative (Negative)
[2022-04-11 11:08] LABS: COVID-19 PCR Positive (Negative); Source Nasopharynx
[2022-04-11 11:50] VITALS: RESP 16
== END 2022-04-11 12:31 | disposition home or self-care (01) ==
PROVIDERS: Emergency Provider Physician Assistant; PCP Physician Assistant Medical
DX: U07.1 COVID-19 (principal); M54.9 Dorsalgia, unspecified; Z87.448 Personal history of other diseases of urinary system
CPT/HCPCS: 36415; 80053; 81025; 83690; 87637; 96361; 96374; 96375; 99284; 74176; 81003; 81015; 85025; J1885; J2405

== ENCOUNTER 2022-04-27 07:41 | Emergency (ER) | payer MEDICAID, SELFPAY ==
[2022-04-27 07:44] VITALS: BP 122/74; PULSE 88; RESP 16; TEMP 36.8; O2SAT 98
--- NOTE | 2022-04-27 08:25 | ED.GENADUL_ITS ---
Discharge Plan Disposition Patient Disposition: HOME Condition: Stable Discharge Details Clinical Impression: URI with cough and congestion Primary Care Provider: Freida Cristina ED Provider: Linda Baldwin Home Meds and New Rx's Prescriptions: New benzonatate 100 mg capsule 100 mg PO TID PRN (Reason: cough) 7 Days Qty: 21 0RF Rx Instructions: Take 3 times daily as needed for cough. No Action Mirena 20 mcg/24 hours (5 yrs) 52 mg intrauterine device 1 device IY ONCE Pain Contract With Pcp Label Comments: 04/06/14 pt states she has a pain contract with her pcp Mp rn albuterol sulfate [ProAir HFA] 200 PUFF HFA aerosol inhaler 2 puff Inhalation Q6H PRN PRNQty: 1 0RF Label Comments: not taking melatonin 10 mg Tablet, Sublingual 20 mg PO HS PRN rizatriptan 10 mg tablet,disintegrating 1 tab PO DIRECTED Label Comments: PLACE 1 TABLET ON THE TONGUE AT ONSET OF HEADACHE, MAY REPEAT IN 2 HOURS, MAX OF 2 TABLETS IN 24 HOURS ondansetron 4 mg tablet,disintegrating 4 mg PO TID PRN (Reason: nausea and vomiting) Qty: 6 0RF Discharge Instructions Instructions: Upper Respiratory Infection (ED) Additional Instructions: At this time you probably have lingering effects from COVID 19. I do recommend you quit smoking. No evidence of the flu today. X-rays show no evidence for pneumonia today. Please take the Tessalon Perles as directed and you may use the albuterol inhaler 1 or 2 puffs every 4-6 hours as needed for shortness of breath. Follow up with primary care provider in 3-5 days. Return to ED sooner if any worsening or concerns. Increase oral fluids. Please take Tylenol or Ibuprofen with food every 4-6 hours as needed for pain and swelling. Referrals: Freida Cristina [Primary Care Provider] - 5 days Discharge Data Discharge Date/Time-TO BE ENTERED AT DEPARTURE: 04/27/22 10:07 Medical Decision Making DuoNeb, flu swab, portable 1 view chest x-ray ordered. Patient is hemodynamically stable here in the department, differential diagnosis includes pneumonia, post-COVID syndrome, URI, influenza, sinus infection. HPI General Mode of arrival: ambulatory . Date/Time Provider Initiated Documentation: 04/27/22 07:48 . Limitations to Documentation: no limitations . Information obtained by: patient, RN notes reviewed and old records reviewed . HPI Narrative: 42-year-old female presents to the ER with a chief complaint of upper respiratory type symptoms. She reports that she had COVID approximately 2 to 3 weeks ago and now her symptoms have worsened. She does have some expiratory wheezes noted bilaterally. She does have a bronchial type cough. She is complaining of sinus pressure. She is a smoker. She denies any drugs or alcohol. She does have a past medical history of anxiety, irritable bowel syndrome. Patient took Tylenol Sinus and cold this morning around 5 AM prior to arrival. Related Data Home Medications Medication Instructions Recorded Confirmed Pain Contract With Pcp 04/06/14 08/26/21 albuterol sulfate 90 mcg/actuation 2 puff inhalation Q6H PRN PRN #1 07/22/16 04/11/22 aerosol inhaler (ProAir HFA) inh levonorgestrel 20 mcg/24 hours (7 1 device intrauterine ONCE 12/09/19 04/11/22 yrs) 52 mg intrauterine device (Mirena) melatonin 10 mg sublingual tablet 20 mg PO HS PRN 04/11/22 04/27/22 ondansetron 4 mg disintegrating 4 mg PO TID PRN nausea and 04/11/22 tablet vomiting #6 tabs rizatriptan 10 mg disintegrating 1 tab PO DIRECTED 04/11/22 04/11/22 tablet benzonatate 100 mg capsule 100 mg PO TID PRN cough 7 days #21 04/27/22 caps Previous Rx's Medication Instructions Recorded albuterol sulfate 90 mcg/actuation 2 puff inhalation Q6H PRN PRN #1 07/22/16 aerosol inhaler (ProAir HFA) inh ondansetron 4 mg disintegrating 4 mg PO TID PRN nausea and 04/11/22 tablet vomiting #6 tabs benzonatate 100 mg capsule 100 mg PO TID PRN cough 7 days #21 04/27/22 caps Allergies Allergy/AdvReac Type Severity Reaction Status Date / Time gentamicin Allergy Mild Visual Unverified 04/27/22 07:50 Disturbances methocarbamol [From Robaxin] AdvReac Intermediate It Unverified 04/27/22 07:50 knocked me right out ibuprofen AdvReac Nausea Unverified 04/27/22 07:50 strawberries Allergy Mild Uncoded 04/27/22 07:50 General Stated Complaint: RespSymp SOURAV: 4 Review of Systems All systems reviewed & are unremarkable except as noted in HPI and below Respiratory Respiratory: Reports as per HPI, Reports change in phlegm color, Reports chest congestion, Reports cough, Denies hemoptysis and Reports wheezing Gastrointestinal Gastrointestinal: Reports diarrhea (History of irritable bowel syndrome and she reports this is normal for her) Genitourinary Genitourinary: Denies difficulty voiding Comments: Denies dysuria or problems urinating Allergic/Immunologic Allergic/Immunologic: Reports wheezing PFSH All Active Problems COVID-19 (Acute) URI with cough and congestion (Acute) RLQ abdominal pain (Acute) SEFERINO (acute kidney injury) (Acute) Discharge planning issues (Acute) DVT prophylaxis (Acute) Right ovarian cyst (Acute) Pain (Acute) Sepsis (Acute) RLQ abdominal pain (Acute) Pyelonephritis (Acute) Migraine headache without aura (Acute) History of lumbar discectomy (Acute) Medical History Anxiety Irritable bowel syndrome Neuroendocrine neoplasm of appendix Grade 1, 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 Surgical History History of bilateral tubal ligation History of hernia repair S/P appendectomy (~08/15/21) Social History Smoking/Tobacco Use Status: Current-Occasional Tobacco Type: cigarettes Years smoked: 25 Smoking risk assessment performed?: Yes Alcohol Intake: current Alcohol Intake frequency: a few times a month Drug use: Rarely Substance use type: marijuana Housing: other Details: trailer Number of Children: 3 What is your relationship status?: Panel score (0-1 are the most socially isolated patients): 0 Seatbelt use: sometimes Do you feel safe at home: Yes Do you feel safe in your relationship?: Yes Exam Narrative Exam Narrative: Constitutional: Alert and oriented x3. Appears stated age. Normal body habitus. Head: Normocephalic, no trauma. Eyes: Pupils PERRL, Red reflex noted, EOM's intact. Eyelids symmetrical without lesions, discharge, or swelling. ENT: Bilateral TM's WNL, External ear normal to inspection, no mastoid TTP, swelling, or erythema, Nasal turbinates boggy on the left, nasal discharge. Normal dentition, Posterior pharynx erythemic, no exudate. Chest: RRR, Normal S1, S2, distal pulses intact. Resp: Lungs diminished to auscultation, expiratory wheezes and rales noted to bilateral bases. Abdomen: Soft, non-distended, Musculoskeletal: Normal gait, 5/5 strength to all four extremities. Skin: . Capillary refill less than 2 sec. Neurologic: Cranial nerves II-XII intact. Alert and oriented x 3. Motor: No deficits noted. Hematologic/Lymphatic: No ecchymosis, no lymphadenopathy. Course Vital Signs Vital signs: Vital Signs Temperature 36.8 C 04/27/22 07:44 Pulse 88 04/27/22 07:44 Respiratory Rate 16 04/27/22 07:44 Blood Pressure 122/74 04/27/22 07:44 Pulse Oximetry 98 04/27/22 07:44 Temperature 36.8 C 04/27/22 07:44 Pulse 88 04/27/22 07:44 Respiratory Rate 16 04/27/22 07:44 Respiratory Effort 04/27/22 07:50 Respiratory Depth Normal 04/27/22 07:50 Blood Pressure 122/74 04/27/22 07:44 Pulse Oximetry 98 04/27/22 07:44
--- NOTE | 2022-04-27 08:30 | DI.RAD_ITS ---
Exam(s) XR PORTABLE CHEST AP EXAM: XR PORTABLE CHEST AP CLINICAL HISTORY: Cough, PUI, RO PNA. TECHNIQUE: 2D digital imaging was performed. COMPARISON: CR,XR XR CHEST 2V PA LATERAL from 02/27/2021 FINDINGS: Single AP portable view. Heart size is upper normal. The mediastinum is not widened. There are no confluent pulmonary infiltrates nor pleural effusions. No pulmonary edema. No pneumoth orax. IMPRESSION: No confluent infiltrates evident on this single AP portable view of the chest.Also no obvious pleural effusions. DATA REPOSITORY: RADIATION DOSE DELIVERED: All CT scans at this facility use at least one of these dose optimization techniques: automated exposure control; mA and/or kV adjustment per patient size (includes targeted e xams where dose is matched to clinical indication); or iterative reconstruction.
[2022-04-27 10:07] VITALS: BP 128/64; PULSE 72; RESP 16; O2SAT 98
== END 2022-04-27 10:07 | disposition home or self-care (01) ==
PROVIDERS: Emergency Provider Registered Nurse Emergency; PCP Physician Assistant Medical
DX: J06.9 Acute upper respiratory infection, unspecified (principal); R05.1 Acute cough; R09.89 Other specified symptoms and signs involving the circulatory and respiratory systems; Z86.16 Personal history of COVID-19; F17.210 Nicotine dependence, cigarettes, uncomplicated
CPT/HCPCS: 87449; 99283; 71045

== ENCOUNTER 2023-07-04 13:38 | Emergency (ER) | payer MEDICAID, SELFPAY ==
[2023-07-04 13:52] VITALS: BP 120/72; PULSE 96; RESP 16; TEMP 37.3; O2SAT 98
--- NOTE | 2023-07-04 14:15 | DI.CT_ITS ---
Exam(s) CT HEAD WO EXAM: CT HEAD WO CLINICAL HISTORY: Closed head injury, dizzy, nausea. TECHNIQUE: Imaging Protocol: Axial computed tomography images with coronal and sagittal reformatted images were created and reviewed COMPARISON: No exams were available for comparison FINDINGS: Ventricles and Extra axial spaces: Normal in size and morphology for the patient's age. Hemorrhage: None. Cerebral parenchyma: No evidence of acute infarct or mass. Midline shift: None. Brainstem/Cerebellum: Normal. Calvarium: Normal. Visualized Paranasal sinuses/Mastoids: Clear. Soft Tissues: Unremarkable. IMPRESSION: No acute intracranial process. RADIATION DOSE DELIVERED: 744.61mGy.cm Total DLP DATA REPOSITORY: All CT scans at this facility are submitted to the National Radiology Data Registry (NRDR) Dose Index Registry (DIR) with the [employer] ([employer]). RADIATION OPTIMIZATION: All CT scans at this facility use at least one of these dose optimization te chniques: automated exposure control; mA and/or kV adjustment per patient size (includes targeted exa ms where dose is matched to clinical indication); or iterative reconstruction.
--- NOTE | 2023-07-04 14:16 | W.ED.GENAD ---
Discharge Plan Discharge Details Chief Complaint: HeadInjury Primary Care Provider: Freida Cristina ED Provider: Alka Wagner Home Meds and New Rx's Prescriptions: No Action Mirena 20 mcg/24 hours (5 yrs) 52 mg intrauterine device 1 device IY ONCE Pain Contract With Pcp Patient Comments: 04/06/14 pt states she has a pain contract with her pcp Mp rn albuterol sulfate [ProAir HFA] 200 PUFF HFA aerosol inhaler 2 puff Inhalation Q6H PRN PRNQty: 1 0RF Patient Comments: not taking melatonin 10 mg Tablet, Sublingual 20 mg PO HS PRN rizatriptan 10 mg tablet,disintegrating 1 tab PO DIRECTED Patient Comments: PLACE 1 TABLET ON THE TONGUE AT ONSET OF HEADACHE, MAY REPEAT IN 2 HOURS, MAX OF 2 TABLETS IN 24 HOURS ondansetron 4 mg tablet,disintegrating 4 mg PO TID PRN (Reason: nausea and vomiting) Qty: 6 0RF Medical Decision Making <Linda Baldwin NP - Last Filed: 07/04/23 15:45> 43-year-old female presents to the ER with chief complaint of head injury last night, approximately 50 pound metal door fell over onto her while she was sitting down hitting the right side of her head. She reports no loss of consciousness however she has slept most of the day, is having some dizziness, nausea and dry heaves. Denies any C-spine tenderness or any other complaints. Denies any diplopia or blurry vision. No focal neurodeficits noted on exam. She does have a history of migraine headaches, tubal ligation appendectomy hernia repair, anxiety irritable bowel syndrome. Denies taking any aspirin or blood thinners at this time. CT head without contrast ordered due to nausea and dizziness and dry heaving, 4 mg of Zofran ODT. Patient declines any possibility of due to tubal ligation and IUD. Care is to be handed off to oncoming provider Funmilayo chavez MD pending CT head results and disposition. Expected disposition is discharge with concussion. HPI <Linda Baldwin NP - Last Filed: 07/04/23 15:45> General Mode of arrival: ambulatory. Date/Time Provider Initiated Documentation: 07/04/23 14:10. Limitations to Documentation: no limitations. Information obtained by: patient, RN notes reviewed and old records reviewed. HPI Narrative: 43-year-old female presents to the ER with chief complaint of head injury last night, approximately 50 pound metal door fell over onto her while she was sitting down hitting the right side of her head. She reports no loss of consciousness however she has slept most of the day, is having some dizziness, nausea and dry heaves. Denies any C-spine tenderness or any other complaints. Denies any diplopia or blurry vision. No focal neurodeficits noted on exam. She does have a history of migraine headaches, tubal ligation appendectomy hernia repair, anxiety irritable bowel syndrome. Denies taking any aspirin or blood thinners at this time. Related Data Home Medications Medication Instructions Recorded Confirmed Pain Contract With Pcp 04/06/14 08/26/21 albuterol sulfate 90 mcg/actuation 2 puff inhalation Q6H PRN PRN #1 07/22/16 04/11/22 aerosol inhaler (ProAir HFA) inh levonorgestrel 21 mcg/24 hours (8 1 device intrauterine ONCE 12/09/19 04/11/22 yrs) 52 mg intrauterine device (Mirena) melatonin 10 mg sublingual tablet 20 mg PO HS PRN 04/11/22 04/27/22 ondansetron 4 mg disintegrating 4 mg PO TID PRN nausea and 04/11/22 tablet vomiting #6 tabs rizatriptan 10 mg disintegrating 1 tab PO DIRECTED 04/11/22 04/11/22 tablet Previous Rx's Medication Instructions Recorded albuterol sulfate 90 mcg/actuation 2 puff inhalation Q6H PRN PRN #1 07/22/16 aerosol inhaler (ProAir HFA) inh ondansetron 4 mg disintegrating 4 mg PO TID PRN nausea and 04/11/22 tablet vomiting #6 tabs Allergies Allergy/AdvReac Type Severity Reaction Status Date / Time gentamicin Allergy Mild Visual Unverified 04/27/22 07:50 Disturbances methocarbamol [From Robaxin] AdvReac Intermediate It Unverified 04/27/22 07:50 knocked me right out ibuprofen AdvReac Nausea Unverified 04/27/22 07:50 strawberries Allergy Mild Uncoded 04/27/22 07:50 General Stated Complaint: HeadInjury SOURAV: 3 Review of Systems <Linda Baldwin NP - Last Filed: 07/04/23 15:45> All systems reviewed & are unremarkable except as noted in HPI and below Constitutional Constitutional: Reports as per HPI, Reports daytime sleepiness and Reports headache(s) ENT Ears, Nose, Mouth, and Throat: Reports headache(s) Gastrointestinal Gastrointestinal: Reports nausea (Dry heaves) Neurologic Neurologic: Reports as per HPI and Reports headache(s) PFSH <Linda Baldwin NP - Last Filed: 07/04/23 15:45> All Active Problems COVID-19 (Acute) RLQ abdominal pain (Acute) SEFERINO (acute kidney injury) (Acute) Discharge planning issues (Acute) DVT prophylaxis (Acute) Right ovarian cyst (Acute) Pain (Acute) Sepsis (Acute) RLQ abdominal pain (Acute) Pyelonephritis (Acute) Migraine headache without aura (Acute) History of lumbar discectomy (Acute) Medical History Anxiety Irritable bowel syndrome Neuroendocrine neoplasm of appendix Grade 1, 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 Surgical History History of bilateral tubal ligation History of hernia repair S/P appendectomy (~08/15/21) Social History Smoking/Tobacco Use Status: Current-Occasional Tobacco Type: cigarettes Years smoked: 25 Smoking risk assessment performed?: Yes Alcohol Intake: current Alcohol Intake frequency: a few times a month Drug use: Rarely Substance use type: marijuana Housing: other Details: trailer Number of Children: 3 What is your relationship status?: Panel score (0-1 are the most socially isolated patients): 0 Seatbelt use: sometimes Do you feel safe at home: Yes Do you feel safe in your relationship?: Yes Exam <Linda Baldwin NP - Last Filed: 07/04/23 15:45> Narrative Exam Narrative: Constitutional: Alert and oriented x3. Appears stated age. Normal body habitus. Head: Normocephalic, no significant palpable trauma. No hematoma noted. Eyes: Pupils PERRL, Red reflex noted, EOM's intact. Eyelids symmetrical without lesions, discharge, or swelling. ENT: Bilateral TM's WNL, External ear normal to inspection, no mastoid TTP, swelling, or erythema, Nasal turbinates WNL, no nasal discharge. No Tesfaye sign, no raccoon eyes, Chest: RRR, Normal S1, S2, distal pulses intact. Resp: Lungs clear to auscultation bilaterally, no wheezes, rales, or rhonchi. Abdomen: Soft, non-distended, Normoactive bowel sounds all 4 quads. Musculoskeletal: Normal gait, 5/5 strength to all four extremities. No midline C-spine T-spine L-spine tenderness crepitus step-off with palpation. Full range of motion of neck. Skin: No suspicious rashes or lesions. Capillary refill less than 2 sec. Neurologic: Cranial nerves II-XII intact. Alert and oriented x 3. Motor: No deficits noted. Sensory: Intact bilaterally all 4 extremities. Hematologic/Lymphatic: No ecchymosis, no lymphadenopathy. Course <Linda Baldwin NP - Last Filed: 07/04/23 15:45> Vital Signs Vital signs: Vital Signs Temperature 37.3 C 07/04/23 13:52 Pulse 96 H 07/04/23 13:52 Respiratory Rate 16 07/04/23 13:52 Blood Pressure 120/72 07/04/23 13:52 Pulse Oximetry 98 07/04/23 13:52 Temperature 37.3 C 07/04/23 13:52 Temperature Source Skin 07/04/23 13:52 Pulse 96 H 07/04/23 13:52 Respiratory Rate 16 07/04/23 13:52 Respiratory Effort Normal 07/04/23 14:06 Respiratory Depth Normal 07/04/23 14:06 Respiratory Pattern Normal 07/04/23 14:06 Blood Pressure 120/72 07/04/23 13:52 Blood Pressure Position Sitting 07/04/23 13:52 Pulse Oximetry 98 07/04/23 13:52 Oxygen Delivery Method Room Air 07/04/23 13:52 Oxygen Flow Rate 0 07/04/23 13:52 Pain Level 8 07/04/23 13:52 Comment denies otc relief 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 NO LOC. Given Zofran 4mg PO ODT. Last updated by Linda Baldwin NP at 07/04/23 15:36 PAWSS <Linda Baldwin NP - Last Filed: 07/04/23 15:45> Have you Been Recently Intoxicated or Drunk Within the Last 30 days?: No Have you Ever Experienced Previous Episodes of Alcohol Withdrawal?: No Have you ever Experienced Withdrawal Seizures?: No Have you ever Experienced Delirium Tremens(DT)s?: No Have you ever undergone Alcohol Rehabilitation Treatment (i.e, inpt ot outpatient treatment programs)?: No Have you ever Experienced Blackouts?: No Have you ever Combined Alcohol with other Downers within the last 90 days?: No Have you ever Combined Alcohol with any other Substance of Abuse during the last 90 days?: No Positive Blood Alcohol level on Presentation? [PCS.BAL]: No Evidence of Increased Autonomic Activity (i.e. HR>120, tremor, sweating, agitation, nausea)?: No Result: 0 <Alka Wagner MD - Last Filed: 07/04/23 15:40> Result: 0
[2023-07-04] MEDS: Ondansetron O.D.T. 4 MG TABEF PO (14:24)
--- NOTE | 2023-07-04 15:40 | W.EDPROG ---
Date of service: 07/04/23 Time of Service: 15:40 Medical Decision Making This patient was signed out to me. Please see previous notes for H&P and initial eval. In brief, 43 yo F not on AC presenting after being struck in the head by a metal door yesterday evening. No LOC. Today with headache, nausea, dry-heaving; no focal neurologic deficits on exam. Plan to followup head CT; if reassuring would discharge home with presumed concussion. CT independently reviewed, no bleed or fracture on my view, agree with radiology read below. On reassessment she reports nausea improved with zofran. Able to take PO fluids. Benign neurologic exam with no focal deficits. Likely concussion. Advised symptom control at home, prescription for zofran sent, educated regarding expected clinical course. Discharged home; discharge instructions and return precautions were reviewed with patient who verbalized understanding. All questions were answered and she is in full agreement with the plan. Imaging Data Radiologic Study: Imaging: CT Scan Radiologist's impression: IMPRESSION: No acute intracranial process. Sign Out Sign Out Data: Sign Out Comment: Pending Heat CT, No focal neuro deficits, STODDARD, Nausea, dry heaves. NO LOC. Given Zofran 4mg PO ODT. Last updated by Linda Baldwin NP at 07/04/23 15:36 Discharge Plan Disposition Patient Disposition: Home Condition: Good Discharge Details Clinical Impression: Concussion Primary Care Provider: Freida Cristina ED Provider: Alka Wagner Home Meds and New Rx's Prescriptions: New ondansetron HCl 4 mg tablet 4 mg PO Q8H PRNQty: 14 0RF Continued Mirena 20 mcg/24 hours (5 yrs) 52 mg intrauterine device 1 device IY ONCE albuterol sulfate [ProAir HFA] 200 PUFF HFA aerosol inhaler 2 puff Inhalation Q6H PRN PRNQty: 1 0RF Patient Comments: not taking melatonin 10 mg Tablet, Sublingual 20 mg PO HS PRN rizatriptan 10 mg tablet,disintegrating 1 tab PO DIRECTED Patient Comments: PLACE 1 TABLET ON THE TONGUE AT ONSET OF HEADACHE, MAY REPEAT IN 2 HOURS, MAX OF 2 TABLETS IN 24 HOURS No Action Pain Contract With Pcp Patient Comments: 04/06/14 pt states she has a pain contract with her pcp Lester rn ondansetron 4 mg tablet,disintegrating 4 mg PO TID PRN (Reason: nausea and vomiting) Qty: 6 0RF Discharge Instructions Instructions: Concussion (ED) Additional Instructions: You can take zofran every 8 hours as needed for nausea. Take tylenol and ibuprofen over the counter as needed for pain; follow the directions on the bottle. Call your primary care doctor today to schedule an appointment to follow up on your visit here. Return to the emergency departmetn for new or worsening symptoms, including severe headache that does not improve with medication, inability to keep down fluids, numbness, weakness, or if you have any other concerns. Referrals: Freida Cristina [Primary Care Provider] -
[2023-07-04 16:15] VITALS: BP 135/71; PULSE 80; RESP 16; O2SAT 100
== END 2023-07-04 16:20 | disposition home or self-care (01) ==
PROVIDERS: Emergency Provider Student in an Organized Health Care Education/Training Program; PCP Physician Assistant Medical
DX: S06.0X0A Concussion without loss of consciousness, initial encounter (principal); W20.8XXA Other cause of strike by thrown, projected or falling object, initial encounter
CPT/HCPCS: 99284; 70450

== ENCOUNTER 2024-04-17 21:43 | Emergency (ER) | payer SELFPAY ==
[2024-04-17 21:47] VITALS: BP 154/83; PULSE 99; RESP 18; TEMP 37.2; O2SAT 96
--- NOTE | 2024-04-17 21:59 | ED.GENADUL_ITS ---
Discharge Plan Disposition Patient Disposition: Home Condition: Good Discharge Details Clinical Impression: Episodic lightheadedness, Nausea and vomiting Primary Care Provider: Freida Cristina ED Provider: Geovanny Musa Home Meds and New Rx's Prescriptions: Continued Mirena 20 mcg/24 hours (5 yrs) 52 mg intrauterine device 1 device IY ONCE Pain Contract With Pcp Patient Comments: 04/06/14 pt states she has a pain contract with her pcp Mp rn albuterol sulfate [ProAir HFA] 200 PUFF HFA aerosol inhaler 2 puff Inhalation Q6H PRN PRNQty: 1 0RF Patient Comments: not taking melatonin 10 mg Tablet, Sublingual 20 mg PO HS PRN rizatriptan 10 mg tablet,disintegrating 1 tab PO DIRECTED Patient Comments: PLACE 1 TABLET ON THE TONGUE AT ONSET OF HEADACHE, MAY REPEAT IN 2 HOURS, MAX OF 2 TABLETS IN 24 HOURS ondansetron 4 mg tablet,disintegrating 4 mg PO TID PRN (Reason: nausea and vomiting) Qty: 6 0RF Discharge Instructions Instructions: Acute Nausea and Vomiting (ED) Additional Instructions: You were seen in the ED for lightheadedness with associated nausea and vomiting which may have been related to heat exposure during the day. Your vitals, exam, laboratory studies are reassuring. Please drink plenty of fluids over the next few days to stay hydrated. Follow-up with primary care next week. Return to ED for any syncope, chest pain, shortness of breath, persistent vomiting, other concerns. HPI General Mode of arrival: ambulatory . Date/Time Provider Initiated Documentation: 04/17/24 21:43 . Limitations to Documentation: no limitations . Information obtained by: patient . HPI Narrative: Patient presenting to ED with episode of lightheadedness, nausea and vomiting, mild headache. She has been working outside most of the day. Does not think she has been drinking enough water. Headache is nothing like her migraines and is just mild. She has no neurologic symptoms associated with it. She has no fever, cough, URI symptoms, UTI symptoms. Denies any syncope, chest pain, shortness of breath. Denies any abdominal pain or diarrhea. Related Data Home Medications Medication Instructions Recorded Confirmed Pain Contract With Pcp 04/06/14 08/26/21 albuterol sulfate 90 mcg/actuation 2 puff inhalation Q6H PRN PRN #1 07/22/16 04/17/24 aerosol inhaler (ProAir HFA) inh levonorgestrel 21 mcg/24 hr (up to 1 device intrauterine ONCE 12/09/19 04/17/24 8 years) 52 mg intrauterine device (Mirena) melatonin 10 mg sublingual tablet 20 mg PO HS PRN 04/11/22 04/17/24 ondansetron 4 mg disintegrating 4 mg PO TID PRN nausea and 04/11/22 04/17/24 tablet vomiting #6 tabs rizatriptan 10 mg disintegrating 1 tab PO DIRECTED 04/11/22 04/17/24 tablet Previous Rx's Medication Instructions Recorded albuterol sulfate 90 mcg/actuation 2 puff inhalation Q6H PRN PRN #1 07/22/16 aerosol inhaler (ProAir HFA) inh ondansetron 4 mg disintegrating 4 mg PO TID PRN nausea and 04/11/22 tablet vomiting #6 tabs Allergies Allergy/AdvReac Type Severity Reaction Status Date / Time gentamicin Allergy Mild Visual Unverified 04/17/24 21:49 Disturbances methocarbamol [From Robaxin] AdvReac Intermediate It Unverified 04/17/24 21:49 knocked me right out ibuprofen AdvReac Nausea Unverified 04/17/24 21:49 strawberries Allergy Mild Hives Uncoded 04/17/24 21:49 General Stated Complaint: Headache SOURAV: 3 Review of Systems Narrative: per HPI Exam Narrative Exam Narrative: Const: WDWN female in NAD. VS per triage. HEENT: NC/AT. Normal facial exam. Neck: Supple. Trachea midline. Lungs: Normal respiratory effort. Lungs are clear. Cor: RRR without murmur. Good radial pulses. GI: Soft. NT/ND. No guarding or rebound. Neuro: A+O x 3. Normal speech, mentation, gait. Cranial nerves II - XII grossly intact. No gross motor or sensory deficit. Ext: No C/C/E. Course Vital Signs Vital signs: Vital Signs Temperature 99.0 F 04/17/24 21:47 Pulse 99 H 04/17/24 21:47 Respiratory Rate 18 04/17/24 21:47 Blood Pressure 154/83 H 04/17/24 21:47 Pulse Oximetry 96 04/17/24 21:47 Temperature 99.0 F 04/17/24 21:47 Temperature Source Skin 04/17/24 21:47 Pulse 99 H 04/17/24 21:47 Respiratory Rate 18 04/17/24 21:47 Respiratory Effort Normal 04/17/24 21:49 Blood Pressure 154/83 H 04/17/24 21:47 Blood Pressure Position Sitting 04/17/24 21:47 Pulse Oximetry 96 04/17/24 21:47 Oxygen Delivery Method Room Air 04/17/24 21:47 Oxygen Flow Rate 0 04/17/24 21:47 Pain Level 0 04/17/24 21:47 Medical Decision Making Patient presenting to ED with episode of lightheadedness, nausea and vomiting, mild headache likely related to dehydration and heat exposure. She is mildly tachycardic. She looks well otherwise. Will plan IV, prochlorperazine, LR, CBC and BMP. Denies URI symptoms, UTI symptoms, abdominal pain, chest pain, syncope, shortness of breath. Patient laboratory studies are unremarkable. Patient much improved after prochlorperazine and fluids. No longer has nausea or headache. Will plan di scharge home, encourage oral fluid intake, follow-up with PCP as needed. Return precautions provided. Medical Records Medical records reviewed: Yes I reviewed the patient's medical records. Medical records narrative: neuro visit Lab Data Lab results reviewed: Yes I reviewed the patient's lab results. 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 Irritable bowel syndrome Anxiety Surgical History History of lumbar discectomy S/P appendectomy (~08/15/21) History of bilateral tubal ligation History of hernia repair Social History Smoking/Tobacco Use Status: Current-Occasional Tobacco Type: cigarettes Years smoked: 25 Smoking risk assessment performed?: Yes Alcohol Intake: current Alcohol Intake frequency: a few times a month Drug use: Rarely Substance use type: marijuana Housing: other Details: trailer Number of Children: 3 What is your relationship status?: Panel score (0-1 are the most socially isolated patients): 0 Seatbelt use: sometimes Do you feel safe at home: Yes Do you feel safe in your relationship?: Yes
[2024-04-17] MEDS: Lactated Ringers 1,000 ML 1000 ML IV (22:07)
[2024-04-17 22:15] LABS: HCT 43.5 % (36.0-46.0); MCHC 32.2 % (32.0-36.0); MCV 90 fL (80-95); MPV 10.5 fL (8.0-11.0); Platelet Count 270 10^3/uL (130-400); RBC 4.83 10^6/uL (3.93-5.22); RDW 13.1 % (11.7-14.6); WBC 10.81 10^3/uL (4.4-10.8)
[2024-04-17] MEDS: Normal Saline 50 ML 200 ML (22:17)
[2024-04-17] MEDS: Prochlorperazine 10 MG/2 ML VIAL IVP (22:18)
[2024-04-17 22:24] LABS: Anion Gap 8.4 mmol/L (3-11); BUN 11 mg/dL (7-18); CO2 27.6 mmol/L (21.0-32.0); Calcium 8.4 mg/dL (8.5-10.1); Chloride 105 mmol/L (98-107); Estimated GFR 71.69 (mL/min/1.73m2); Glucose 125 mg/dL (74-106); Potassium 3.6 mmol/L (3.5-5.1); Sodium 141 mmol/L (136-145)
[2024-04-17 23:45] VITALS: BP 123/76; PULSE 64; RESP 18; O2SAT 98
== END 2024-04-17 23:49 | disposition home or self-care (01) ==
PROVIDERS: Emergency Provider Emergency Medicine; PCP Physician Assistant Medical
DX: R42 Dizziness and giddiness (principal); R11.2 Nausea with vomiting, unspecified; R51.9 Headache, unspecified; F17.210 Nicotine dependence, cigarettes, uncomplicated
CPT/HCPCS: 36415; 80048; 85027; 96374; 99284; 99283; J0780

== ENCOUNTER 2025-06-10 15:24 | Emergency (ER) | payer MEDICAID, SELFPAY ==
[2025-06-10] VITALS (13 sets, daily range): BP systolic 120–136; BP diastolic 52–78; PULSE 69–100; RESP 16–18; TEMP 37.5; O2SAT 95–98
--- NOTE | 2025-06-10 15:15 | RT.EKG_ITS ---
APPROVED REPORT Exam: Resting ECG Reason for Exam: dizzy Patient Location: E HR:91 bpm ECG Measurements Heart Rate 91 AXIS MI 117 P 80 QRSd 98 QRS 77 QT 336 T 34 QTc 414 Conclusion Sinus rhythm...normal P axis, V-rate 60- 99
--- NOTE | 2025-06-10 15:45 | DI.RAD_ITS ---
Exam(s) XR CHEST 2V PA LATERAL EXAM: XR CHEST 2V PA LATERAL CLINICAL HISTORY: dizziness, cough. TECHNIQUE: 2D digital imaging was performed. COMPARISON: CR XR PORTABLE CHEST AP from 04/27/2022 FINDINGS: 2 views: Heart size is normal. The mediastinum is not widened. Lungs are clear. No infiltrates nor pleural effusions. IMPRESSION: No acute pulmonary findings. DATA REPOSITORY: RADIATION DOSE DELIVERED:
--- NOTE | 2025-06-10 15:47 | W.ED.GENAD ---
Discharge Plan Disposition Patient Disposition: Home Condition: Stable Discharge Details Clinical Impression: Heat exhaustion Primary Care Provider: Freida Cristina ED Provider: Aditya Chavira Home Meds and New Rx's Prescriptions: Continued Mirena 20 mcg/24 hours (5 yrs) 52 mg intrauterine device 1 device IY ONCE Pain Contract With Pcp Patient Comments: 04/06/14 pt states she has a pain contract with her pcp Lester rn albuterol sulfate [ProAir HFA] 200 PUFF HFA aerosol inhaler 2 puff Inhalation Q6H PRN PRNQty: 1 0RF Patient Comments: not taking mirtazapine 30 mg tablet Patient Comments: TAKE ONE TABLET BY MOUTH EVERY DAY BEFORE BEDTIME lorazepam 1 mg tablet Patient Comments: TAKE ONE TABLET BY MOUTH EVERY DAY NEEDED FOR PANIC ATTACKS melatonin 10 mg Tablet, Sublingual 20 mg PO HS PRN rizatriptan 10 mg tablet,disintegrating 1 tab PO DIRECTED Patient Comments: PLACE 1 TABLET ON THE TONGUE AT ONSET OF HEADACHE, MAY REPEAT IN 2 HOURS, MAX OF 2 TABLETS IN 24 HOURS ondansetron 4 mg tablet,disintegrating 4 mg PO TID PRN (Reason: nausea and vomiting) Qty: 6 0RF Discharge Instructions Instructions: Heat Illness ED Additional Instructions: You were seen in the emergency department for your exhaustion due to heat exposure, you remained stable throughout your visit, your workup shows no signs of clinical dehydration, you are provided IV fluids with improvement. Please try to keep cool and maintain hydration on these hot days, please return to the emergency department for any further episodes of near syncope or any other emergent concerns. Referrals: Freida Cristina [Primary Care Provider, Medicine] Discharge Data Discharge Date/Time-TO BE ENTERED AT DEPARTURE: 06/10/25 19:13 HPI General Date/Time Provider Initiated Documentation: 06/10/25 15:29. HPI Narrative: 45 year-old female presents to ED today by POV/ambulating with a chief complaint of possible heat exhaustion, was outside, now feels nauseous and dizzy, with onset just prior to arrival. Quality described as malaise, no radiation to cessation of sweating, chest pain, shortness of breath, vomiting, syncope. Severity is described as moderate. Palliating factors include nothing specific attempted. Provoking factors include nothing specific. Patient not anticoagulated. Related Data Home Medications ?Medication ?Instructions ?Recorded ?Confirmed Pain Contract With Pcp 04/06/14 08/26/21 albuterol sulfate 90 mcg/actuation 2 puff inhalation Q6H PRN PRN #1 07/22/16 06/10/25 aerosol inhaler (ProAir HFA) inh levonorgestrel (Mirena) 1 device intrauterine ONCE 12/09/19 06/10/25 melatonin 10 mg sublingual tablet 20 mg PO HS PRN 04/11/22 06/10/25 ondansetron 4 mg disintegrating 4 mg PO TID PRN nausea and 04/11/22 06/10/25 tablet vomiting #6 tabs rizatriptan 10 mg disintegrating 1 tab PO DIRECTED 04/11/22 06/10/25 tablet lorazepam 1 mg tablet mg 06/10/25 mirtazapine 30 mg tablet mg 06/10/25 Previous Rx's ?Medication ?Instructions ?Recorded albuterol sulfate 90 mcg/actuation 2 puff inhalation Q6H PRN PRN #1 07/22/16 aerosol inhaler (ProAir HFA) inh ondansetron 4 mg disintegrating 4 mg PO TID PRN nausea and 04/11/22 tablet vomiting #6 tabs Allergies Allergy/AdvReac Type Severity Reaction Status Date / Time gentamicin Allergy Mild Visual Unverified 06/10/25 15:31 Disturbances methocarbamol (From Robaxin) AdvReac Intermediate It Unverified 06/10/25 15:31 knocked me right out ibuprofen AdvReac Nausea Unverified 06/10/25 15:31 strawberries Allergy Mild Hives Uncoded 06/10/25 15:31 General Stated Complaint: GenMedical SOURAV: 3 Review of Systems All systems reviewed & are unremarkable except as noted in HPI and below Exam Narrative Exam Narrative: GENERAL APPEARANCE: Well-nourished, non-toxic, awake and alert, atraumatic, no acute distress. SKIN: Warm, pink, mildly diaphoretic, intact, without rashes/lesions/ulcerations. HEAD: Normocephalic, atraumatic, normal hair distribution for gender/age. EYES: Normal conjunctiva, no exudates on lids/lashes. ENT: Nares patent, no circumoral cyanosis, no facial swelling NECK: Supple, trachea midline, painless cervical ROM. LUNGS/CHEST: Lungs CTA bilaterally, non-labored respirations, normal A/P diameter, symmetrical expansion, no chest wall deformity HEART (CV/PV): Regular rate and rhythm without murmur, no peripheral edema, no JVD. ABDOMEN: Soft, non-distended, no guarding. MSK: Normal ROM, no swelling/deformity to bilateral UEs or LEs, moving all extremities without weakness, no cyanosis, spine midline without tenderness, normal curvature. NEURO: Mental Status AAOx4 - alert to person, place, time, events No facial droop, no forehead involvement. Motor: No focal weakness - strength 5/5 in bilateral UEs and LEs, proximal and distal, symmetric. Sensory: sensation intact to light touch globally. Gait normal: patient ambulated without ataxia into ED room. PSYCH: euthymic, cooperative, pleasant, appropriate speech Course Vital Signs Vital signs: Vital Signs Temperature 37.5 C 06/10/25 15:26 Pulse 100 H 06/10/25 15:26 Respiratory Rate 18 06/10/25 15:26 Blood Pressure 120/78 06/10/25 15:26 Pulse Oximetry 98 06/10/25 15:26 Temperature 37.5 C 06/10/25 15:26 Temperature Source Tympanic 06/10/25 15:26 Pulse 100 H 06/10/25 15:26 Respiratory Rate 18 06/10/25 15:26 Blood Pressure 120/78 06/10/25 15:26 Blood Pressure Position Sitting 06/10/25 15:26 Pulse Oximetry 98 06/10/25 15:26 Oxygen Delivery Method Room Air 06/10/25 15:26 Oxygen Flow Rate 0 06/10/25 15:26 Pain Level 2 06/10/25 15:26 Medical Decision Making This dictation utilizes [id number] dictation software and may contain unedited grammatical errors. 45 year-old female presents to ED today by POV/ambulating with a chief complaint of possible heat exhaustion, was outside, now feels nauseous and dizzy, with onset just prior to arrival. Quality described as malaise, no radiation to cessation of sweating, chest pain, shortness of breath, vomiting, syncope. Severity is described as moderate. Palliating factors include nothing specific attempted. Provoking factors include nothing specific. Patients' medical history: Noncontributory. Family and social history: Noncontributory. Pertinent exam findings / vital signs include benign cardiopulmonary exam, nontoxic and afebrile, mildly diaphoretic. Differential / pathologies of concern include heat exhaustion, dehydration, not heatstroke. Diagnostic studies of: -CBC, CMP, magnesium, lactate, troponin, TSH, UA, XR chest, EKG. - CBC and CMP are unremarkable, mildly low magnesium recommend OTC supplements - Troponin negative X2 - TSH within normal limits - UA shows no concern for infection or profound dehydration - Lactate negative - XR chest shows no acute pathology - EKG without ischemic abnormality or arrhythmia Interventions of: -1 L IVF LR with improvement of symptoms, the patient requested a work note as she did not go to work today. ED Course/Assessment/Plan: 45-year-old female presents with some nausea and dizziness feeling of malaise after being out in the heat, is likely mild heat exhaustion, improved with IV fluids, no evidence of heatstroke she did not stop sweating, and is afebrile. Counseled on cooling protocols and return for any worsening. Findings not consistent with heatstroke, syncope, ACS Disposition of Heat Exhaustion. Patient verbalized understanding of the plan and return to ED criteria and engaged in shared decision making. Medical Records Medical records reviewed: Yes I reviewed the patient's medical records. Imaging Data Radiologic Study: Attestation: I personally reviewed and interpreted this imaging study as follows: Imaging: X-Ray Radiologist's impression: EXAM: XR CHEST 2V PA LATERAL CLINICAL HISTORY: dizziness, cough. TECHNIQUE: 2D digital imaging was performed. COMPARISON: CR XR PORTABLE CHEST AP from 04/27/2022 FINDINGS: 2 views: Heart size is normal. The mediastinum is not widened. Lungs are clear. No infiltrates nor pleural effusions. IMPRESSION: No acute pulmonary findings. Lab Data Lab results reviewed: Yes I reviewed the patient's lab results. Labs: Laboratory Tests Range/Units 06/10/25 06/10/25 06/10/25 15:57 16:22 17:00 WBC (4.4-10.8) 10^3/uL 8.69 RBC (3.93-5.22) 10^6/uL 4.54 Hgb (11.2-15.7) g/dL 13.2 Hct (36.0-46.0) % 39.2 MCV (80-95) fL 86 MCH (27.0-33.0) pg 29.1 MCHC (32.0-36.0) % 33.7 RDW (11.7-14.6) % 12.9 Plt Count (130-400) 10^3/uL 248 MPV (8.0-11.0) fL 10.5 Immature Gran % % 0.3 Neutrophils % % 61.1 Lymphocytes % % 29.1 Monocytes % % 7.2 Eosinophils % % 1.7 Basophils % % 0.6 Nucleated RBC % (0.0-0.3) % 0.0 Absolute Neutrophils (1.2-6.7) 10^3/uL 5.30 Absolute Lymphocytes (1.2-3.4) 10^3/uL 2.53 Absolute Monocytes (0.1-0.8) 10^3/uL 0.63 Absolute Eosinophils (0.0-0.7) 10^3/uL 0.15 Absolute Basophils (0.0-0.2) 10^3/uL 0.05 VBG Lactate (<or=2.0) mmol/L 0.6 Sodium (136-145) mmol/L 138 Potassium (3.5-5.1) mmol/L 3.7 Chloride (98-107) mmol/L 103 Carbon Dioxide (21.0-32.0) mmol/L 25.8 Anion Gap (3-11) mmol/L 9.2 BUN (7-18) mg/dL 12 Creatinine (0.55-1.02) mg/dL 0.7 Est GFR (CKD-EPI 2020) (mL/min/1.73m2) 109.30 Glucose (74-106) mg/dL 109 H Calcium (8.5-10.1) mg/dL 8.8 Magnesium (1.8-2.4) mg/dL 1.7 L Total Bilirubin (0.2-1.0) mg/dL 0.3 AST (15-37) U/L 11 L ALT (14-59) U/L 18 Alkaline Phosphatase (46-116) U/L 55 Creatine Kinase (26-192) U/L 30 Troponin I (<or=51) ng/L 4 < 4 Total Protein (6.4-8.2) g/dL 7.2 Albumin (3.4-5.0) g/dL 3.9 TSH (0.36-3.74) uIU/mL 1.27 Urine Color (Yellow) Yellow Urine Clarity (Clear) Sl Cloudy Urine pH (5-8) 7.0 Ur Specific [place] (1.005-1.025) 1.010 Urine Protein (Neg-Trace) mg/dL Negative Urine Ketones (Negative) mg/dL Negative Urine Blood (Negative) Negative Urine Nitrite (Negative) Negative Urine Bilirubin (Negative) Negative Urine Urobilinogen (Up to 0.2) mg/dL 0.2 Ur Leukocyte Esterase (Negative) Small H Urine RBC (0-2) HPF Negative Urine WBC (0-5) HPF 5-10 Ur Epithelial Cells (Negative) HPF Moderate Urine Crystals (Negative) HPF Negative Urine Bacteria (Negative) HPF Moderate Urine Casts (Negative) LPF Negative Urine Mucus (Negative) Negative Ur Culture Indicated? 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 Irritable bowel syndrome Anxiety Surgical History History of lumbar discectomy S/P appendectomy (~08/15/21) History of bilateral tubal ligation History of hernia repair Social History Smoking/Tobacco Use Status: Current-Occasional Tobacco Type: cigarettes Years smoked: 25 Smoking risk assessment performed?: Yes Alcohol Intake: current Alcohol Intake frequency: a few times a month Drug use: Rarely Substance use type: marijuana Housing: other Details: trailer Number of Children: 3 What is your relationship status?: Panel score (0-1 are the most socially isolated patients): 0 Seatbelt use: sometimes Do you feel safe at home: Yes Do you feel safe in your relationship?: Yes
[2025-06-10] MEDS: Lactated Ringers 1,000 ML 1000 ML IV (16:01)
[2025-06-10 16:07] LABS: Abs Immature Grans 0.03 10^3/uL (0.0-0.06); HCT 39.2 % (36.0-46.0); HGB 13.2 g/dL (11.2-15.7); Immature Grans % 0.3 %; MCH 29.1 pg (27.0-33.0); MCHC 33.7 % (32.0-36.0); MCV 86 fL (80-95); MPV 10.5 fL (8.0-11.0); Platelet Count 248 10^3/uL (130-400); RBC 4.54 10^6/uL (3.93-5.22); RDW 12.9 % (11.7-14.6); RDW-SD 40.5 fL; WBC 8.69 10^3/uL (4.4-10.8)
[2025-06-10 16:33] LABS: Glucose Negative (Negative)
[2025-06-10 16:44] LABS: ALT 18 U/L (14-59); AST 11 U/L (15-37); Albumin 3.9 g/dL (3.4-5.0); Alkaline Phosphatase 55 U/L (46-116); Anion Gap 9.2 mmol/L (3-11); BUN 12 mg/dL (7-18); Bilirubin, Total 0.3 mg/dL (0.2-1.0); CO2 25.8 mmol/L (21.0-32.0); Calcium 8.8 mg/dL (8.5-10.1); Chloride 103 mmol/L (98-107); Creatine Kinase 30 U/L (26-192); Estimated GFR 109.30 (mL/min/1.73m2); Glucose 109 mg/dL (74-106); Magnesium 1.7 mg/dL (1.8-2.4); Potassium 3.7 mmol/L (3.5-5.1); Sodium 138 mmol/L (136-145); TSH (W/Ref FT4) 1.27 uIU/mL (0.36-3.74); Total Protein 7.2 g/dL (6.4-8.2); Troponin I 4 ng/L (<or=51)
[2025-06-10 16:45] LABS: C & S Indicated? No; RBC Negative HPF (0-2)
[2025-06-10 18:10] LABS: Troponin I < 4 ng/L (<or=51)
== END 2025-06-10 19:13 | disposition home or self-care (01) ==
PROVIDERS: Emergency Provider Physician Assistant; PCP Physician Assistant Medical
DX: R42 Dizziness and giddiness (principal); R11.0 Nausea; F17.210 Nicotine dependence, cigarettes, uncomplicated; X32.XXXA Exposure to sunlight, initial encounter; Y93.89 Activity, other specified; Y92.89 Other specified places as the place of occurrence of the external cause
CPT/HCPCS: 80053; 82550; 93005; 99284; 71046; 81003; 81015; 83605; 83735; 84443; 84484; 85025; 93010

== ENCOUNTER 2025-07-17 14:23 | Emergency (ER) | payer MEDICAID, SELFPAY ==
[2025-07-17] VITALS (14 sets, daily range): BP systolic 112–143; BP diastolic 62–85; PULSE 70–104; RESP 16; TEMP 36.9; O2SAT 95–100
--- NOTE | 2025-07-17 15:03 | ED.GENADUL_ITS ---
Discharge Plan Disposition Patient Disposition: Home Condition: Stable Discharge Details Clinical Impression: Migraine Primary Care Provider: Freida Cristina ED Provider: Marisela Saleh Home Meds and New Rx's Prescriptions: No Action Mirena 20 mcg/24 hours (5 yrs) 52 mg intrauterine device 1 device IY ONCE Pain Contract With Pcp 1 dose AD ONCE Patient Comments: 04/06/14 pt states she has a pain contract with her pcp Mp rn albuterol sulfate [ProAir HFA] 200 PUFF HFA aerosol inhaler 2 puff Inhalation Q6H PRN PRNQty: 1 0RF Patient Comments: not taking mirtazapine 30 mg tablet 30 mg PO DAILY Patient Comments: TAKE ONE TABLET BY MOUTH EVERY DAY BEFORE BEDTIME lorazepam 1 mg tablet 1 mg PO ONCE PRN Patient Comments: TAKE ONE TABLET BY MOUTH EVERY DAY NEEDED FOR PANIC ATTACKS melatonin 10 mg Tablet, Sublingual 20 mg PO HS PRN rizatriptan 10 mg tablet,disintegrating 1 tab PO DIRECTED Patient Comments: PLACE 1 TABLET ON THE TONGUE AT ONSET OF HEADACHE, MAY REPEAT IN 2 HOURS, MAX OF 2 TABLETS IN 24 HOURS Discharge Instructions Instructions: Headache, Adult ED Additional Instructions: You were seen in the emergency department today for evaluation of a migraine. In our department he had a full physical examination performed, and had medications that improved your headache. As we discussed, I recommend that you keep a headache diary and follow-up with your primary care provider to discuss whether or not preventative migraine medications are the right choice for you. Please use therapeutic dosing of Tylenol (acetaminophen) & Advil (ibuprofen) in an alternating fashion as follows: Take 1000mg of Tylenol every 6 hours without missing doses- that is 4 times per day. Longterm in between the Tylenol doses, take 600mg of Advil also on a 6 hour schedule, that is also 4 times per day. With this strategy, you will be taking something for fever/pain as often as every 3 hours. The daily maximum dosing of Tylenol is 4000mg, and the daily max imum dosing of Advil is 2400mg. Please note that some common cold medications & prescription pain medications may contain acetaminophen and you need to read OTC drug labels and factor that in to maximum daily doses. Please follow-up with your primary care provider in the next few days to discuss this visit and any symptoms that change, worsen, or persist. Thank you for allowing us to be part of your care. Stand Alone Forms: Work Release Discharge Data Discharge Date/Time-TO BE ENTERED AT DEPARTURE: 07/17/25 16:46 HPI General Mode of arrival: ambulatory . Date/Time Provider Initiated Documentation: 07/17/25 14:34 . Limitations to Documentation: no limitations . Information obtained by: patient, family and old records reviewed . HPI Narrative: This is a 45-year-old female patient with a past medical history significant for migraine headaches presenting for evaluation of a migraine. She reports that she has had a headache for the last 3 days, it is located behind her left eye which is typical of her previous migraines. She reports that the headache came on gradually without thunderclap quality, it is associated with nausea but no vomiting, and has not responded to her home Tylenol, ibuprofen, or rizatriptan. The patient reports that her past migraine history includes CT imaging of her brain a few years ago, and a neurology visit that resulted in her rizatriptan prescription. She does not take any preventative medications but plans to talk to her primary care provider about them as she has had intermittent headaches symptoms that are difficult to control. The patient reports no visual changes other than photophobia, denies weakness, numbness, or tingling in 1 side of her body or the other. Has otherwise been in her normal state of health without recent fevers or trauma. Related Data Home Medications ?Medication ?Instructions ?Recorded ?Confirmed Pain Contract With Pcp 1 dose AD ONCE 04/06/1406/27 albuterol sulfate 90 mcg/actuation 2 puff inhalation Q 6H PRN PRN #1 07/22/16 07/17/25 aerosol inhaler (ProAir HFA) inh levonorgestrel (Mirena) 1 device intrauterine ONCE 0 12/09/19 07/17/25 melatonin 10 mg sublingual tablet 20 mg PO HS PRN 03/2607/17/25 rizatriptan 10 mg disintegrating 1 tab PO DIRECTED 04/11/22 07/17/25 tablet lorazepam 1 mg tablet 1 mg PO ONCE PRN 06/10/25 mirtazapine 30 mg tablet 30 mg PO DAILY 06/10/2506/27 Previous Rx's ?Medication ?Instructions ?Recorded albuterol sulfate 90 mcg/actuation 2 puff inhalation Q 6H PRN PRN #1 07/22/16 aerosol inhaler (ProAir HFA) inh Allergies Allergy/AdvReac Type Severity Reaction Status Date / Time gentamicin Allergy Mild Visual Unverified 07/17/25 14:28 Disturbances methocarbamol (From Robaxin) AdvReac Intermediate It Unverified 07/17/25 14:28 knocked me right out ibuprofen AdvReac Nausea Unverified 07/17/25 14:28 strawberries Allergy Mild Hives Uncoded 07/17/25 14:28 General Stated Complaint: Headache SOURAV: 3 Exam Narrative Exam Narrative: Gen: awake and alert, in no apparent distress. Appears well nourished. HEENT: PERRL, EOMs full and without nystagmus. External ears and nose normal, mucous membranes moist. Neck: Supple, full range of motion, no observable masses Lungs: No increased work of breathing CV: Heart with regular rate and rhythm. Strong and symmetrical radial pulses. Abdomen: Soft, nondistended, non-tender to palpation. No rigidity, rebound tenderness, or guarding. MSK: No joint swelling, no redness. Full ROM without limitation, no external traumatic findings. Skin: No rashes or lesions to visualized skin. Normal color, warm, and dry. Neuro: Cranial nerves II-XII intact and symmetrical bilaterally. 5/5 strength in all muscle groups x4 extremities. No sensory deficits. Ambulates with steady gait. Psych: Appropriate for situation. Course Vital Signs Vital signs: Vital Signs Temperature 36.9 C 07/17/25 14:26 Pulse 104 H 07/17/25 14:26 Respiratory Rate 16 07/17/25 14:26 Blood Pressure 143/85 H 07/17/25 14:26 Pulse Oximetry 95 07/17/25 14:26 Temperature 36.9 C 07/17/25 14:26 Temperature Source Skin 07/17/25 14: Pulse 104 H 07/17/25 14:26 Respiratory Rate 16 07/17/25 14:26 Blood Pressure 143/85 H 07/17/25 14:26 Blood Pressure Position Sitting 07/17/25 14:26 Pulse Oximetry 95 07/17/25 14:26 Oxygen Delivery Method Room Air 07/17/25 14: Oxygen Flow Rate 0 07/17/25 14:26 Pain Level 8 07/17/25 14:26 Medical Decision Making This is a 45-year-old female patient presenting for evaluation of headache. My differential includes but is not limited to migraine headache given the characteristic symptoms for this patient's baseline. I do not note any thunderclap quality suggestive of SAH, and she has no neurodeficits concerning for intracranial hemorrhage, CVA, intracranial mass. Considered other primary headache disorders including tension headache and cluster headache. No visual acuity changes or red eye to suggest optic neuritis, glaucoma, temporal arteritis. We will provide the patient with a migraine cocktail to include lactated Ringer's, Toradol, Reglan, and Benadryl. At this time I do not see an indication to proceed with advanced imaging or laboratory studies. -On reevaluation the patient remains with a preserved nonfocal neuro examination, and has had significant improvement in her headache symptoms. She was counseled to keep a headache diary and follow-up with her primary care provider to discuss preventative medications and alternative abortive medications for her migraines. At this time, the patient has had a full medical evaluation and is safe for discharge to home. They are hemodynamically stable, ambulatory, and tolerating PO. They are understanding of the follow-up plan and return precautions. They left our facility without incident. 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 Irritable bowel syndrome Anxiety Surgical History History of lumbar discectomy S/P appendectomy (~08/15/21) History of bilateral tubal ligation History of hernia repair Social History Smoking/Tobacco Use Status: Current-Occasional Tobacco Type: cigarettes Years smoked: 25 Smoking risk assessment performed?: Yes Alcohol Intake: current Alcohol Intake frequency: a few times a month Drug use: Rarely Substance use type: marijuana Details: Pt takes gummies for back pain Housing: other Details: trailer Number of Children: 3 What is your relationship status?: Panel score (0-1 are the most socially isolated patients): 0 Seatbelt use: sometimes Do you feel safe at home: Yes Do you feel safe in your relationship?: Yes
[2025-07-17] MEDS: Lactated Ringers 1,000 ML 1000 ML IV (15:25)
[2025-07-17] MEDS: Ketorolac 15 MG/ML VIAL IVP (15:26)
[2025-07-17] MEDS: Metoclopramide 10 MG/2 ML VIAL IVP (15:26)
[2025-07-17] MEDS: diphenhydrAMINE 50 MG/ML VIAL 25 MG IVP (15:26)
[2025-07-17] MEDS: Normal Saline 50 ML (15:36)
[2025-07-17] MEDS: Acetaminophen 500 MG TAB 1000 MG PO (16:40)
== END 2025-07-17 16:46 | disposition home or self-care (01) ==
PROVIDERS: Emergency Provider Emergency Medicine; PCP Physician Assistant Medical
DX: G43.909 Migraine, unspecified, not intractable, without status migrainosus (principal)
CPT/HCPCS: 99284 ×2; 96374; 96375; 96361; J1200; J1885; J2765

== ENCOUNTER 2025-10-09 13:55 | Emergency (ER) | payer MEDICAID, SELFPAY ==
[2025-10-09 14:03] VITALS: BP 129/81; PULSE 101; RESP 20; TEMP 36.7; O2SAT 97
--- NOTE | 2025-10-09 15:00 | RT.EKG_ITS ---
APPROVED REPORT Exam: Resting ECG Reason for Exam: tick bite, not feeling well Patient Location: E HR:96 bpm ECG Measurements Heart Rate 96 AXIS OK 117 P 72 QRSd 90 QRS 48 QT 337 T 2 QTc 427 Conclusion Sinus rhythm...normal P axis, V-rate 60- 99
--- NOTE | 2025-10-09 15:05 | W.ED.GENAD ---
Discharge Plan Disposition Patient Disposition: Home Condition: Stable Discharge Details Clinical Impression: Viral illness, Tick bite, Contact dermatitis Primary Care Provider: Freida Cristina ED Provider: Mingo Amin Home Meds and New Rx's Prescriptions: New ondansetron 4 mg tablet,disintegrating 4 mg PO Q8H PRN (Reason: nausea and vomiting) Qty: 10 0RF Continued Mirena 20 mcg/24 hours (5 yrs) 52 mg intrauterine device 1 device IY ONCE albuterol sulfate [ProAir HFA] 200 PUFF HFA aerosol inhaler 2 puff Inhalation Q6H PRN PRNQty: 1 0RF mirtazapine 30 mg tablet 30 mg PO DAILY Patient Comments: TAKE ONE TABLET BY MOUTH EVERY DAY BEFORE BEDTIME lorazepam 1 mg tablet 1 mg PO ONCE PRN Patient Comments: TAKE ONE TABLET BY MOUTH EVERY DAY NEEDED FOR PANIC ATTACKS Discharge Instructions Instructions: Contact dermatitis, Cough, Adult ED Additional Instructions: Please drink plenty of clear fluids to stay hydrated and allow for plenty of rest. A tick panel is pending at time of discharge. Should this test reveal tickborne disease, you will be contacted to initiate treatment. Please avoid exposure to Tide detergent. Please follow-up with your primary care physician. Return to the emergency department immediately for any worsening or new concerning symptoms. Stand Alone Forms: Portal Information, Work Release HPI General Mode of arrival: ambulatory. Date/Time Provider Initiated Documentation: 10/09/25 14:34. Limitations to Documentation: no limitations. Information obtained by: patient. HPI Narrative: HISTORY OF PRESENT ILLNESS This is a 45-year-old female with a history of asthma presenting with a dry cough for the last 5 days, body aches, and fatigue. The patient reports the onset of symptoms 5 days ago, including fatigue, excessive sleepiness, and nausea after consuming small amounts of food. She describes her cough as dry and mentions sinus congestion. She has not experienced any fever. The patient has not received her COVID-19 or influenza vaccines this year. She has not experienced any urinary symptoms. She is seeking a work note as she hopes to potentially return to work tomorrow. She has been maintaining hydration and rest. The patient has a known allergy to TIDE detergent, which has resulted in a rash on her hands and the back of her neck due to accidental exposure. She has a history of asthma, which is currently stable. The patient recalls removing a tick from the back of her neck approximately a week ago but is uncertain about the duration of its attachment. She has irritable bowel syndrome (IBS). Her current medications include mirtazapine, taken nightly before bed, and lorazepam. She also uses an IUD. Related Data Home Medications Medication Instructions Recorded Confirmed albuterol sulfate 90 mcg/actuation 2 puff inhalation Q6H PRN PRN #1 07/22/16 10/09/25 aerosol inhaler (ProAir HFA) inh levonorgestrel (Mirena) 1 device intrauterine ONCE 12/09/19 10/09/25 lorazepam 1 mg tablet 1 mg PO ONCE PRN 06/10/25 10/09/25 mirtazapine 30 mg tablet 30 mg PO DAILY 06/10/25 10/09/25 ondansetron 4 mg disintegrating 4 mg PO Q8H PRN nausea and 10/09/25 tablet vomiting #10 tabs Previous Rx's Medication Instructions Recorded albuterol sulfate 90 mcg/actuation 2 puff inhalation Q6H PRN PRN #1 07/22/16 aerosol inhaler (ProAir HFA) inh ondansetron 4 mg disintegrating 4 mg PO Q8H PRN nausea and 10/09/25 tablet vomiting #10 tabs Allergies Allergy/AdvReac Type Severity Reaction Status Date / Time gentamicin Allergy Mild Visual Unverified 10/09/25 14:05 Disturbances methocarbamol (From Robaxin) AdvReac Intermediate It Unverified 10/09/25 14:05 knocked me right out ibuprofen AdvReac Nausea Unverified 10/09/25 14:05 strawberries Allergy Mild Hives Uncoded 10/09/25 14:05 General Stated Complaint: RespSymp SOURAV: 4 Review of Systems All systems reviewed & are unremarkable except as noted in HPI and below Constitutional Constitutional: Denies fever(s) Respiratory Respiratory: Reports as per HPI Exam Const General: cooperative and no acute distress HENMT Mouth: moist mucous membranes Eyes Conjunctivae: normal conjunctivae Sclera: normal sclerae Neck Neck: trachea midline and supple Resp Auscultation: clear to auscultation bilaterally, no rales, no rhonchi and no wheezes Cardio Rate: regular rate and not tachycardic Rhythm: regular rhythm GI Palpation: soft, not firm, no guarding, no masses, not rigid and nontender Skin Rashes: rashes noted (Macular rash on neck and hands attributed to tide exposure) Neuro General: patient alert, patient awake, patient oriented x3 and tone normal Extrem General: no edema Psych Appearance: grossly normal Mental Status: mental status grossly normal Speech and Movement: speech and movement normal Course Vital Signs Vital signs: Vital Signs Temperature 36.7 C 10/09/25 14:03 Pulse 101 H 10/09/25 14:03 Respiratory Rate 20 10/09/25 14:03 Blood Pressure 129/81 10/09/25 14:03 Pulse Oximetry 97 10/09/25 14:03 Temperature 36.7 C 10/09/25 14:03 Pulse 101 H 10/09/25 14:03 Respiratory Rate 20 10/09/25 14:03 Blood Pressure 129/81 10/09/25 14:03 Blood Pressure Position Sitting 10/09/25 14:03 Pulse Oximetry 97 10/09/25 14:03 Oxygen Delivery Method Room Air 10/09/25 14:03 Oxygen Flow Rate 0 10/09/25 14:03 Medical Decision Making ASSESSMENT AND PLAN Initial Assessment: 45-year-old female presenting with dry cough, body aches, fatigue, and nausea for 5 days. Mildly tachycardic, normotensive, afebrile, saturating well, no respiratory distress. Differential Diagnosis: - Viral syndrome: Symptoms include dry cough, body aches, fatigue, nausea. Clear lung sounds, good oxygen saturation. No urinary symptoms. No chest x-ray needed. Check for COVID-19 and influenza. Basic blood levels checked. - Tick-borne disease: Tick bite on neck a week ago. Tick panel ordered for Lyme disease and anaplasmosis. Results expected Sunday or Sunday. Contact if positive. - Pneumonia: Unlikely due to clear lung sounds and good oxygen saturation. - Urinary tract infection (UTI): Unlikely due to absence of urinary symptoms. ED Course: - Tick panel ordered for Lyme disease and anaplasmosis. - Tests for COVID-19 and influenza conducted. - EKG was reviewed and interpreted by me: Please report, sinus rhythm 96 bpm, normal intervals, nondiagnostic. Final Assessment: Patient evaluated for viral syndrome, tick-borne disease, pneumonia, and UTI. Tick panel ordered, tests for COVID-19 and influenza negative, normal platelets and LFTs. No leukocytosis. Advised to maintain hydration and rest. Clinical Impression: - Viral syndrome - Tick bite - Allergic contact dermatitis Disposition: - Follow-Up: Tick panel results expected Sunday or Sunday. Patient to be contacted for treatment if positive. Patient Education: Stay hydrated with clear liquids. Rest. Typical virus duration 10-12 days. This document was written with the assistance of [employer] [place]. The patient consented to its use. Lab Data Lab results reviewed: Yes I reviewed the patient's lab results. Labs: Laboratory Tests Range/Units 10/09/25 15:15 WBC (4.4-10.8) 10^3/uL 5.46 RBC (3.93-5.22) 10^6/uL 5.15 Hgb (11.2-15.7) g/dL 14.3 Hct (36.0-46.0) % 43.4 MCV (80-95) fL 84 MCH (27.0-33.0) pg 27.8 MCHC (32.0-36.0) % 32.9 RDW (11.7-14.6) % 12.9 Plt Count (130-400) 10^3/uL 244 MPV (8.0-11.0) fL 10.5 Immature Gran % % 0.4 Neutrophils % % 57.7 Lymphocytes % % 29.7 Monocytes % % 11.2 Eosinophils % % 0.5 Basophils % % 0.5 Nucleated RBC % (0.0-0.3) % 0.0 Absolute Neutrophils (1.2-6.7) 10^3/uL 3.15 Absolute Lymphocytes (1.2-3.4) 10^3/uL 1.62 Absolute Monocytes (0.1-0.8) 10^3/uL 0.61 Absolute Eosinophils (0.0-0.7) 10^3/uL 0.03 Absolute Basophils (0.0-0.2) 10^3/uL 0.03 Sodium (136-145) mmol/L 140 Potassium (3.5-5.1) mmol/L 3.6 Chloride (98-107) mmol/L 106 Carbon Dioxide (20.0-31.0) mmol/L 24.0 Anion Gap (3-11) mmol/L 10 BUN (9-23) mg/dL 9 Creatinine (0.55-1.02) mg/dL 0.8 Est GFR (CKD-EPI 2020) (mL/min/1.73m2) 82.45 Glucose (74-106) mg/dL 95 Calcium (8.3-10.6) mg/dL 8.9 Total Bilirubin (0.2-1.2) mg/dL 0.30 AST (<34) U/L 21 ALT (10-49) U/L 19 Alkaline Phosphatase (46-116) U/L 57 Total Protein (5.7-8.2) g/dL 7.8 Albumin (3.4-5.0) g/dL 4.7 COVID-19 Source Nasopharynx SARS-CoV-2 (PCR) (Negative) Negative Influenza Type A (PCR) (Negative) Negative Influenza Type B (PCR) (Negative) Negative RSV (PCR) (Negative) Negative PFSH All Active Problems (Updated 10/09/25 @ 15:48 by Mingo Amin MD) Contact dermatitis (Acute) Tick bite (Acute) Viral illness (Acute) Right ovarian cyst (Acute) Medical History Migraine headache without aura Neuroendocrine neoplasm of appendix Grade 1, 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 Irritable bowel syndrome Anxiety Surgical History History of lumbar discectomy S/P appendectomy (~08/15/21) History of bilateral tubal ligation History of hernia repair Social History Smoking/Tobacco Use Status: Current-Occasional Tobacco Type: cigarettes Years smoked: 25 Smoking risk assessment performed?: Yes Alcohol Intake: current Alcohol Intake frequency: a few times a month Drug use: Rarely Substance use type: marijuana Details: Pt takes gummies for back pain Housing: other Details: trailer Number of Children: 3 What is your relationship status?: Panel score (0-1 are the most socially isolated patients): 0 Seatbelt use: sometimes Do you feel safe at home: Yes Do you feel safe in your relationship?: Yes
[2025-10-09 15:26] LABS: Abs Immature Grans 0.02 10^3/uL (0.0-0.06); HCT 43.4 % (36.0-46.0); HGB 14.3 g/dL (11.2-15.7); Immature Grans % 0.4 %; MCH 27.8 pg (27.0-33.0); MCHC 32.9 % (32.0-36.0); MCV 84 fL (80-95); MPV 10.5 fL (8.0-11.0); Platelet Count 244 10^3/uL (130-400); RBC 5.15 10^6/uL (3.93-5.22); RDW 12.9 % (11.7-14.6); RDW-SD 39.7 fL; WBC 5.46 10^3/uL (4.4-10.8)
[2025-10-09 15:39] VITALS: BP 128/78; PULSE 95; RESP 16; O2SAT 98
[2025-10-09] MEDS: Ondansetron O.D.T. 4 MG TABEF PO (15:42)
[2025-10-09 15:55] LABS: ALT 19 U/L (10-49); AST 21 U/L (<34); Albumin 4.7 g/dL (3.4-5.0); Alkaline Phosphatase 57 U/L (46-116); Anion Gap 10 mmol/L (3-11); BUN 9 mg/dL (9-23); Bilirubin, Total 0.30 mg/dL (0.2-1.2); CO2 24.0 mmol/L (20.0-31.0); Calcium 8.9 mg/dL (8.3-10.6); Chloride 106 mmol/L (98-107); Glucose 95 mg/dL (74-106); Potassium 3.6 mmol/L (3.5-5.1); Sodium 140 mmol/L (136-145); Total Protein 7.8 g/dL (5.7-8.2)
[2025-10-09 16:03] LABS: COVID-19 PCR Negative (Negative); RSV PCR Negative (Negative)
[2025-10-09 16:44] VITALS: BP 116/59; PULSE 95; RESP 16; TEMP 36.1; O2SAT 98
[2025-10-09 17:01] VITALS: BP 116/59; PULSE 95; RESP 16; TEMP 36.1; O2SAT 98
[2025-10-11 19:39] LABS: B. miyamotoi PCR Negative (Negative); Babesia divergens/MO-1 Negative (Negative); Ehrlichia muris eauclairensis Negative (Negative)
[2025-10-12 11:30] LABS: Lyme Ab w Rflx to Lyme Confirm Negative (Negative)
== END 2025-10-09 17:10 | disposition home or self-care (01) ==
PROVIDERS: Emergency Provider Student in an Organized Health Care Education/Training Program; PCP Physician Assistant Medical
DX: B34.9 Viral infection, unspecified (principal); L25.8 Unspecified contact dermatitis due to other agents; W57.XXXA Bitten or stung by nonvenomous insect and other nonvenomous arthropods, initial encounter
CPT/HCPCS: 99284 ×2; 80053; 87637; 87798; 93005; 85025; 86618; 93010